=== PATIENT | female | born 1990 | race Caucasian/White ===

== ENCOUNTER 2017-05-03 10:42 | Day surgery (SDC) | payer OTHER ==
[~2017-05-03] VITALS: Ht 165.1 cm; Wt 78.6 kg
[~2017-05-03 10:42] MED LIST: ALPR.5T PO; ALPR0.5T3 PO; CETI10TA20 PO; CETIRIZINE; CRAN450T9 PO; ESCITALOPRAM; FAMO20TA5 PO; L-NO1TBD PO; LEVO1TBD3 PO; MELA1TAB16 PO; MULT-963 PO; NYST1000 PO; PANT40TA3 PO; PHEN37.53 PO; PNT40TEC PO; PROP40TA5 PO; TRM50T PO; Xanax
[2017-05-03 10:47] VITALS: BP 133/109
[2017-05-03] MEDS ORDERED: METOCLOPRAMIDE INJ 10 MG/2 ML (REGLAN) IV NR (11:01)
[2017-05-03] MEDS ORDERED: SUCRALFATE 1 GM (CARAFATE) TAB PO NR (11:05)
[2017-05-03] MEDS ORDERED: NS IV 1000 ML 1,000 ML IV SCH ×2 (11:15→12:15)
[2017-05-03] MEDS ORDERED: GABA-488 PO (12:36)
[2017-05-03] MEDS ORDERED: TRAM50TA2 PO (12:36)
[2017-05-03] MEDS ORDERED: ONDN4T PO (12:36)
[2017-05-03] MEDS ORDERED: SENN-109 PO (12:40)
[2017-05-03] MEDS ORDERED: BISA10SU6 RC (12:40)
[2017-05-03] MEDS ORDERED: DOCU-143 PO (12:40)
[2017-05-03] MEDS ORDERED: ACET325T38 PO (12:40)
[2017-05-03] MEDS: MAGNESIUM 1 GM/D5W 100 ML IVPB IV SCH ×2 (12:42→13:41)
[2017-05-03] MEDS ORDERED: CETI10TA20 PO (12:43)
[2017-05-03] MEDS ORDERED: DIPH25TA65 PO (12:43)
[2017-05-03] MEDS ORDERED: OXYC10TA7 PO (12:43)
[2017-05-03] MEDS ORDERED: CYCL10TA9 PO (12:43)
[2017-05-03] MEDS ORDERED: ENOX100D9 SQ (12:45)
[2017-05-03] MEDS ORDERED: CRAN1TAB5 PO (12:45)
[2017-05-03] MEDS ORDERED: SALI45SP MM (12:45)
[2017-05-03] MEDS ORDERED: PROMETHAZINE INJ 25 MG/ML (PHENERGAN) AMP IV NR (17:00)
[2017-05-03 17:20] VITALS: BP_SYST 128; BP_SYST 133; BP_DIAS 109; BP_DIAS 93
== END 2017-05-03 17:20 | disposition home or self-care (01) ==
LOC: SDC 10:42
PROVIDERS: ATTEND Family Medicine
DX: E86.0 Dehydration (principal); R11.2 Nausea with vomiting, unspecified
CPT/HCPCS: 36415; 83735

== ENCOUNTER → 2017-05-04 | Outpatient (CLI) | payer OTHER ==
[~2017-05-04] MED LIST changes: +ACET325T38 PO; +BISA10SU6 RC; +CRAN1TAB5 PO; +CYCL10TA9 PO; +DIPH25TA65 PO; +DOCU-143 PO; +ENOX100D9 SQ; +GABA-488 PO; +ONDN4T PO; +OXYC10TA7 PO; +SALI45SP MM; +SENN-109 PO; +TRAM50TA2 PO
--- NOTE | 2017-05-04 17:02 | Diagnostic Imaging Report ---
INDICATION: Right upper quadrant abdominal pain. History of portal vein thrombus. TECHNIQUE: Multiple grayscale sonographic images were obtained of the right upper quadrant of the abdomen. CORRELATION STUDY: CT 04/08/2017. FINDINGS: LIVER: There is uniform echotexture within the visualized portions of the liver. Previous CT imaging demonstrated thrombus in the portal vein. This could not be well appreciated on this examination GALLBLADDER: Gallbladder is somewhat contracted may be owing to relatively recent nonfasting state. There is overall abnormal gallbladder wall thickening at 3-4 mm. A 6 mm echogenic focus, non-mobile and non-shadowing is present suspect for potential polyp. COMMON BILE DUCT: Not visualized, largely obscured by overlying bowel gas. PANCREAS: Also obscured by overlying bowel gas. RIGHT KIDNEY: Measures 11.5 cm. No hydronephrosis. OTHER: None. IMPRESSION: 1. The recently demonstrated portal venous thrombosis cannot be well appreciated on this examination. This may be on a technical basis. If further assessment is desired, repeat contrast-enhanced CT imaging recommended. 2. Gallbladder is significantly contracted with gallbladder wall thickening, probable gallbladder polyp. Possibility that this represents an underlying pathology is not excluded. Either short-term follow-up repeat imaging or perhaps consideration for HIDA scan recommended. 3. Multiple midline abdominal structures including pancreas and common bile duct are unable to be identified on this study, obscured by bowel gas. Dictated by: Dictated on workstation # [id number]
== END ==
LOC: RAD 16:21
PROVIDERS: ATTEND Nurse Practitioner Family
DX: K82.8 Other specified diseases of gallbladder (principal); R11.10 Vomiting, unspecified; Z86.718 Personal history of other venous thrombosis and embolism
CPT/HCPCS: 76705

== ENCOUNTER → 2017-05-04 | Outpatient (CLI) | payer OTHER | LOC: PREOP 15:42 | PROVIDERS: ATTEND Surgery | DX: Z01.818 Encounter for other preprocedural examination (principal); R11.2 Nausea with vomiting, unspecified ==

== ENCOUNTER 2017-05-05 09:06 | Day surgery (SDC) | payer OTHER ==
[~2017-05-05] VITALS: Ht 165.1 cm; Wt 78.6 kg
[2017-05-05 09:28] VITALS: BP 137/104
[2017-05-05] MEDS ORDERED: fentaNYL INJECTION 250 MCG/5 ML AMP ONE (09:40)
[2017-05-05] MEDS ORDERED: MIDAZOLAM 2 MG/2 ML (VERSED) VIAL ONE (09:40)
[2017-05-05] MEDS ORDERED: LACTATED RINGERS 1,000 ML IV PRN (09:40)
[2017-05-05] MEDS ORDERED: FAMOTIDINE 20MG/2ML IV (PEPCID) IV ONE (09:45)
--- NOTE | 2017-05-05 09:51 | Progress Note-Pre Operative ---
Pre-Operative Progress Note H&P Reviewed The H&P was reviewed, patient examined and no changes noted. Date Seen by Provider: May 05, 2017 Time Seen by Provider: 09:45 Date H&P Reviewed: May 05, 2017 Time H&P Reviewed: 09:45 Pre-Operative Diagnosis: symptomatic chronic cholecystitis, PUD, nausea/ vomiting PABLITO MARION MD May 05, 2017 09:51
[2017-05-05] MEDS ORDERED: morphine INJ 10 MG/ML 1ML (SYR OR VIAL) IVP PRN (10:00)
[2017-05-05] MEDS ORDERED: HYDROcodone/APAP 5 MG/325 MG (LORTAB) TAB PO ONE (10:00)
[2017-05-05] MEDS ORDERED: ACETAMINOPHEN 325 MG TABLET/CAPLET (TYLENOL) PO PRN (10:00)
[2017-05-05] MEDS ORDERED: ONDANSETRON 4 MG/2 ML (SDV) Z0FRAN IVP PRN ×2 (10:00→12:30)
[2017-05-05] MEDS ORDERED: NS (IVPB) 50 ML ONE (10:09)
[2017-05-05] MEDS ORDERED: ceFAZolin 1,000 MG (ANCEF) VIAL ONE (10:09)
[2017-05-05] MEDS ORDERED: ESMOLOL 100 MG/10 ML (BREVIBLOC) VIAL ONE (10:48)
[2017-05-05] MEDS ORDERED: proPOfol 200 MG/20 ML (DIPRIVAN) VIAL IV ONE (11:02)
[2017-05-05] MEDS ORDERED: SEVOFLURANE (ULTANE) 15 ML INHAL SOLN ONE ×2 (11:02→12:03)
[2017-05-05] MEDS ORDERED: NEOSTIGMINE (BLOXIVERZ ) 1 MG/1ML 10 ML VIAL ONE (11:02)
[2017-05-05] MEDS ORDERED: GLYCOPYRROLATE 0.2 MG/ML (ROBINUL) 2 ML VIAL ONE (11:02)
[2017-05-05] MEDS ORDERED: DEXAMETHASONE 10 MG/ML (DECADRON) 1 ML VIAL ONE (11:02)
[2017-05-05] MEDS ORDERED: ROCURONIUM 50 MG/5 ML (ZEMURON) VIAL IV ONE (11:02)
[2017-05-05] MEDS ORDERED: ONDANSETRON 4 MG/2 ML (SDV) Z0FRAN ONE (11:02)
[2017-05-05] MEDS ORDERED: LIDOCAINE PF 2% 5 ML (XYLOCAINE) VIAL ONE (11:02)
--- NOTE | 2017-05-05 12:01 | Progress Note-Post Operative ---
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 Procedure & Operative Findings Date of Procedure 05/05/17 Procedure Performed/Findings laparoscopic cholecystectomy, EGD with bx. Anesthesia Type GET Estimated Blood Loss Estimated blood loss (mL): minimal Specimens/Packing Specimens Removed gallbladder PABLITO MARION MD May 05, 2017 12:01 pm
--- NOTE | 2017-05-05 12:07 | Discharge Inst-Surgical ---
D/C Lap Instructions-SANAM New, Converted, or Re-Newed RX: RX on Chart Follow Up Appt in 2 weeks Activity as tolerated No driving for 24 hours No driving while on pain medications Incentive Spirometry use every 2 hours while awake Regular Diet Symptoms to Report: Fever over 101 degree F, Nausea/Vomiting Infection Signs and Symptoms to report: Increased redness, Foul odor of wound, Increased drainage Bathing instructions: May shower Operative Area Clean/Dry; Keep incision clean/dry If any problems/questions: Contact your physician or go to Emergency Room PABLITO MARION MD May 05, 2017 12:07 pm
[2017-05-05] MEDS: morphine INJ 10 MG/ML 1ML (SYR OR VIAL) IVP PRN ×2 (12:24→12:38)
[2017-05-05] MEDS ORDERED: HYDROmorphone (DILAUDID) 2 MG/ML VIAL IVP PRN (12:30)
[2017-05-05 13:35] VITALS: BP 119/75
[2017-05-05] MEDS ORDERED: oxyCODONE/APAP 10/325MG (PERCOCET 10) TABLET PO ONE (13:45)
[2017-05-05 13:50] VITALS: BP 127/83
[2017-05-05] MEDS ORDERED: LACTATED RINGERS 1,000 ML IV SCH (14:15)
--- NOTE | 2017-05-05 14:58 | OPERATIVE REPORT ---
DATE OF SERVICE: 05/05/2017 ATTENDING PHYSICIAN: Dr. Sarah Snider. PREOPERATIVE DIAGNOSIS: Chronic acalculous cholecystitis, persistent nausea and vomiting. POSTOPERATIVE DIAGNOSES: Chronic calculus cholecystitis. Reflux esophagitis class B, small hiatal hernia 1 cm in size, mild gastritis with retained food substance within the stomach potentially consistent with gastroparesis. Pylorus and duodenum appeared normal with no distal obstructions. PROCEDURES: Laparoscopic cholecystectomy, EGD with biopsy. SURGEON: Dr. Pablito Marion. ANESTHESIA: General endotracheal. ESTIMATED BLOOD LOSS: Minimal. FINDINGS: Chronic gallbladder wall inflammation as well as a small gallstone. It was visualized at the stomach, omentum and liver appeared normal. EGD reflux esophagitis class B, small hiatal hernia approximately 1 cm in size, mild gastritis which was diffuse. There was retained food substance within the stomach after being n.p.o. for approximately 24 hours, which may be consistent with gastroparesis. Pylorus and duodenum appeared normal with no distal obstructions. DISPOSITION: The patient tolerated the procedure well. INDICATIONS: The patient is a 26-year-old female who experienced abdominal pain, abdominal distention, nausea and vomiting. 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 She was slow to progress and was transferred to the [facility] with continued medical therapy. She reports that she did slowly improve and after she was discharged home, she did well for approximately 1 week. However, had recurrence of nausea and vomiting as well as some mild discomfort in the right upper abdominal quadrant and epigastric region as well as radiation towards the back. She reports that she is having normal bowel movements. She does report a history of gastroesophageal reflux disease and peptic ulcer disease in the past. She states that the nausea and vomiting persisted and worsened over time, where she was not able to take in much of any solids or liquids. An ultrasound was also performed, which did show contracted gallbladder with gallbladder wall thickening. The patient was brought to the operating room, laid supine on the table. After adequate IV pain and sedative medications and general endotracheal intubation, the abdomen was prepped and draped in standard surgical fashion. A 0.5% Marcaine with epinephrine was then used to anesthetize the overlying skin in the left upper abdominal quadrant and a small transverse skin incision made using a 15 blade. An 0 silk suture was applied to the medial aspect of the incision for retraction and a Veress needle inserted with a low opening pressure of 0 mmHg and the abdomen was then insufflated to 15 mmHg pressure. The Veress needle removed and a 5 mm Xcel trocar placed followed by a 5 mm 45 degree angle laparoscope visualizing the peritoneal cavity. A 4-quadrant abdominal exploration was performed. It was visualized that the liver, stomach, omentum, small bowel appeared normal. There was chronic gallbladder wall inflammation which was mild. Under direct visualization, we then proceeded to place a supraumbilical 10 mm port after the skin and peritoneum were anesthetized using 0.5% Marcaine with epinephrine and a transverse skin incision made using a 15 blade. In a similar manner two right upper abdominal quadrant 5 mm ports were placed. The patient was then placed in reverse Trendelenburg position as well as plane right side up, left side down. The gallbladder was then retracted anteriorly and superiorly as well as the neck laterally. The gastroduodenal ligament was then opened using electrocautery and the hook instrument as well as blunt dissection. The entire critical view of safety was identified including the triangle of Calot as well as the cystic duct and artery going into the gallbladder as well as the cystic plate behind the proximal gallbladder. A timeout was then taken and the cystic duct and artery were then clipped proximally, distally and cut with EndoShears. The gallbladder was then dissected off the liver bed using electrocautery on the hook with no leak with visualization and no leaking ducts of Luschka as well as a good hemostasis. The gallbladder was removed through the 10 mm port site using an EndoCatch bag. The 10 mm port site fascia and peritoneum were then closed under direct visualization using a Chevy-Jeffery device and 0 Vicryl suture. The abdomen was desufflated and the remaining ports removed. All skin incisions were closed using 4-0 Monocryl running subcuticular sutures. Wounds were then cleaned and covered with Dermabond. On the back table the gallbladder was examined and a small gallstone was identified. The patient tolerated the procedure well. We will start IV and oral pain medication as well as a clear liquid diet. Once she is tolerating clears and has good pain control with oral pain medications and ambulating well, we will discharge her home. Under the same general anesthesia, we then proceeded with EGD portion of the procedure. The endoscope was placed in the mouth, visualizing the pharynx in the hypopharyngeal region. Vocal cords, epiglottis and vallecula identified and appeared to be normal. The endoscope was then gently intubated in the esophageal opening, esophagus insufflated. Endoscope was then advanced through the first, second and third portions of the esophagus. At the level of the GE junction, a reflux esophagitis class B identified. There were no ulcers or strictures identified in this region. A biopsy was taken with forceps to visualization of good hemostasis. The endoscope was then easily advanced in the stomach and then endoscope retroflexed, visualizing a small hiatal hernia approximately 1 cm in size. There was mild severity gastritis throughout the stomach. There were no formal ulcers, polyps or any neoplasms identified. What was identified as unusual was a retained food substance within the stomach even after being n.p.o. for 24 hours. This may indicate a gastroparesis. A biopsy was taken of the stomach antrum with forceps with visualization of good hemostasis. The endoscope was then advanced to the pylorus in the first and second portions of the duodenum, which appeared normal with no distal obstructions. The endoscope was then slowly withdrawn taking a second look and suctioning residual air with no additional findings. The patient tolerated the procedure well. We will have her continue with her Protonix and anti nausea medications as well as Reglan. We will also proceed with a trial of erythromycin 250 mg q.8h. If she has continued symptoms, we may then proceed with a nuclear medicine gastric emptying study for proper diagnosis of gastroparesis. Job ID: [id number] DocumentID: [id number] Dictated Date: 05/05/2017 12:24:53 Seat Joiner Chainstitch Date: 05/05/2017 14:58:21 Dictated By: PABLITO MARION MD
== END 2017-05-05 14:36 | disposition home or self-care (01) ==
LOC: ENDO 09:06 → SDC 14:36
PROVIDERS: ATTEND Surgery
DX: K80.10 Calculus of gallbladder with chronic cholecystitis without obstruction (principal); K21.0 Gastro-esophageal reflux disease with esophagitis; K44.9 Diaphragmatic hernia without obstruction or gangrene; Z79.899 Other long term (current) drug therapy
CPT/HCPCS: 84703; 87081; 94664

== ENCOUNTER 2017-05-07 19:37 | Inpatient (IN) | payer OTHER ==
[~2017-05-07] VITALS: Ht 165.1 cm; Wt 81.2 kg
[2017-05-07] MEDS ORDERED: LACTATED RINGERS 1,000 ML IV ONE ×2 (19:50→21:47)
--- NOTE | 2017-05-07 19:59 | ED GI ---
General Chief Complaint: Abdominal/GI Problems Stated Complaint: N/V POSS INFECT Source of Information: Patient History of Present Illness Time Seen By Provider: 19:43 Initial Comments PT ARRIVES VIA POV--SENT HERE BY PT HAS HAD ONGOING PROBLEMS WITH NAUSEA AND VOMITING FOR THE LAST 11 DAYS--FELT TO BE DUE TO GALLBLADDER AND PT HAD LAP CHOLECYSTECTOMY BY DR. MARION 2 DAYS AGO 05/05/17 NO IMPROVEMENT IN NAUSEA/VOMITING--STATES SHE CAN'T KEEP ANYTHING DOWN--VOMITED X 4 TODAY HAS NOT REALLY HAD ANY FOOD SINCE SURGERY HAS BEEN DRINKING SMALL AMOUNTS OF WATER, LIQUIDS, POPSICLES OCCASIONALLY PT HAS BEEN TAKING REGLAN QID--3 DOSES TODAY, PROTONIX--TOOK 1 TODAY, PHENERGAN- -2 DOSES TODAY, HAS ZOFRAN BUT HAS NOT TAKEN ANY TODAY. PT HAS ALSO BEEN PRESCRIBED CARAFATE, BUT DID NOT TAKE TODAY PT ALSO TAKING PAIN MEDICATION --OXYCODONE, AND ANTIBIOTIC--ERYTHROMYCIN CONTINUES TO HAVE GENERALIZED ABDOMINAL PAIN--MOSTLY IN RUQ HAS NOT HAD A BM SINCE THE NIGHT BEFORE SURGERY , ON 05/04/17 NO FEVER HAS HAD DECREASED URINE OUTPUT PT HAS PAIN, REDNESS AND A BLISTER TO UMBILICAL INCISION SITE PRIOR TO SURGERY, PT HAD MESENTERIC VEIN THROMBUS AND WAS SENT TO --PT IS ON LOVENOX 100 MG BID SQ. 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 SMITH Allergies and Home Medications Allergies Coded Allergies: No Known Drug Allergies (Unverified , 09/15/12) Home Medications Acetaminophen 325 Mg Tablet, 650 MG PO Q6H PRN for PAIN-MILD, (Reported) TAKES 2 (325MG) TABLETS Bisacodyl 10 Mg Supp.rect, 10 MG RC BID PRN for CONSTIPATION-4TH LINE, (Reported ) Cetirizine HCl 10 Mg Tablet, 10 MG PO DAILY, (Reported) Cranberry Conc/C/Bacill Coag 1 Each Tablet, 1,500 MG PO DAILY, (Reported) Cyclobenzaprine HCl 10 Mg Tablet, 10 MG PO TID PRN for MUSCLE SPASMS, (Reported) Diphenhydramine HCl 25 Mg Tablet, 25 MG PO DAILY, (Reported) Docusate Sodium 100 Mg Capsule, 100 MG PO DAILY, (Reported) Enoxaparin Sodium 100 Mg/1 Ml Syringe, 100 MG SQ BID, (Reported) Gabapentin 300 Mg Capsule, 300 MG PO Q8H PRN for NERVE PAIN, (Reported) Ondansetron HCl 4 Mg Tab, 4 MG PO Q8H PRN for NAUSEA/VOMITING-1ST LINE, ( Reported) Oxycodone HCl 10 Mg Tablet, 10 MG PO Q4H, (Reported) Pantoprazole Sodium 40 Mg Tablet.dr, 40 MG PO BID, (Reported) Saliva Stimulant Agents Comb.3 1 Each Sew[place], 1 SPRAY MM QID PRN for DRY MOUTH, ( Reported) Sennosides/Docusate Sodium 1 Each Tablet, 1 TAB PO DAILY, (Reported) Tramadol HCl 50 Mg Tablet, 50-100 MG PO Q6H PRN for PAIN-MODERATE, (Reported) Review of Systems Constitutional: no symptoms reported EENTM: No Symptoms Reported Respiratory: No Symptoms Reported, Denies Shortness of Air Cardiovascular: Denies Chest Pain, Denies Lightheadedness, Other (RAPID HEART BEAT) Gastrointestinal: See HPI, Abdominal Pain, Denies Diarrhea, Nausea, Poor Appetite, Poor Fluid Intake, Vomiting Genitourinary: See HPI Musculoskeletal: no symptoms reported Skin: see HPI Psychiatric/Neurological: No Symptoms Reported Endocrine: No Symptoms Reported Hematologic/Lymphatic: See HPI, Blood Clots Past Rpcoqzb-Vdvemg-Sbifxt Hx Patient Social History 2nd Hand Smoke Exposure: No Recent Foreign Travel: No Contact w/Someone Who Travel: No Recent Hopitalizations: Yes (04/03/17 MESSENTERIC VEIN THROMBOSIS, TRANSFERRED TO [facility] 04/09 FOR 6 DAYS) Immunizations Up To Date Tetanus Booster (TDap): Less than 5yrs PED Vaccines UTD: Yes Date of Influenza Vaccine: Mar 06, 2017 Seasonal Allergies Seasonal Allergies: Yes Surgeries History of Surgeries: Yes (LABIAL BIOPSY) Surgeries: Gallbladder Respiratory History of Respiratory Disorde: No Currently Using CPAP: No Currently Using BIPAP: No Cardiovascular History of Cardiac Disorders: No Neurological History of Neurological Disord: No Reproductive System Hx Reproductive Disorders: No Genitourinary History of Genitourinary Disor: No Gastrointestinal History of Gastrointestinal Di: Yes Gastrointestinal Disorders: Gall Bladder Disease Musculoskeletal History of Musculoskeletal Dis: No Endocrine History of Endocrine Disorders: No HEENT History of HEENT Disorders: No Loss of Vision: Denies Hearing Impairment: Denies Cancer History of Cancer: No Psychosocial History of Psychiatric Problem: Yes Behavioral Health Disorders: Anxiety Integumentary History of Skin or Integumenta: No Blood Transfusions History of Blood Disorders: Yes (MESENTERIC VEIN CLOT 03/2017) Family Medical History Significant Family History: Cancer, Vascular Disease Family Medial History: Cardiovascular disease G8 BROTHER (RUNS ON MOTHER'S SIDE OF THE FAMILY) Hypertension G8 BROTHER (RUNS ON MOTHER'S SIDE OF THE FAMILY) Neoplasm 19 MOTHER (BREAST CANCER) G8 BROTHER (BREAST CANCER) Physical Exam Vital Signs VS - Last 72 Hours, by Label 05/07/17 19:44 Temp 96.8 Pulse 140 Resp 20 B/P (MAP) 138/108 (118) Pulse Ox 98 O2 Delivery Room Air Capillary Refill : General Appearance: WD/WN, no apparent distress, other (CHANGES POSITIONS VERY SLOWLY DUE TO PAIN ) HEENT: other (DRY ORAL MUCOSA ) Neck: normal inspection Respiratory: normal breath sounds, no respiratory distress, no accessory muscle use Cardiovascular: no edema, no murmur, tachycardia (150'S ) Gastrointestinal: abnormal bowel sounds (DECREASED), guarding, No rebound, tenderness (DIFFUSE TENDERNESS, BUT VERY TENDERIN RUQ. ), other (UMBILICAL INCISION SITE WITH MODERATE SURROUNDING ERYTHEMA, INDURATION AND TENDERNESS WITH A 1 CM BLISTER TO SUPERIOR ASPECT. 3 OTHER SURGICAL WOUNDS ALL APPEAR NORMAL. NO BRUISING NOTED TO ABDOMEN) Extremities: normal inspection, no pedal edema, no calf tenderness, normal capillary refill Back: normal inspection, no CVA tenderness Neurologic/Psychiatric: marketing information analyst II-XII nml as tested, no motor/sensory deficits, alert, oriented x 3 Skin: warm/dry, pallor, No rash Focused Exam Evaluation Lactate Level Laboratory Tests 05/07/17 20:05: Lactic Acid Level 1.20 Lactic Acid Level Laboratory Tests Test 05/07/17 20:05 Lactic Acid Level 1.20 MMOL/L (0.50-2.00) Progress/Results/Core Measures Results/Orders Lab Results Laboratory Tests Test 05/07/17 20:05 05/07/17 21:00 Range/Units White Blood Count 8.2 4.3-11.0 10^3/uL Red Blood Count 4.36 4.35-5.85 10^6/uL Hemoglobin 12.4 11.5-16.0 G/DL Hematocrit 38 35-52 % Mean Corpuscular Volume 87 80-99 FL Mean Corpuscular Hemoglobin 28 25-34 PG Mean Corpuscular Hemoglobin Concent 33 32-36 G/DL Red Cell Distribution Width 13.5 10.0-14.5 % Platelet Count 499 H 130-400 10^3/uL Mean Platelet Volume 10.3 7.4-10.4 FL Neutrophils (%) (Auto) 50 42-75 % Lymphocytes (%) (Auto) 33 12-44 % Monocytes (%) (Auto) 16 H 0-12 % Eosinophils (%) (Auto) 0 0-10 % Basophils (%) (Auto) 0 0-10 % Neutrophils # (Auto) 4.1 1.8-7.8 X 10^3 Lymphocytes # (Auto) 2.7 1.0-4.0 X 10^3 Monocytes # (Auto) 1.3 H 0.0-1.0 X 10^3 Eosinophils # (Auto) 0.0 0.0-0.3 10^3/uL Basophils # (Auto) 0.0 0.0-0.1 10^3/uL Prothrombin Time 13.5 12.2-14.7 SEC INR Comment 1.0 0.8-1.4 Activated Partial Thromboplast Time 37 H 24-35 SEC Sodium Level 141 135-145 MMOL/L Potassium Level 3.3 L 3.6-5.0 MMOL/L Chloride Level 101 98-107 MMOL/L Carbon Dioxide Level 22 21-32 MMOL/L Anion Gap 18 H 5-14 MMOL/L Blood Urea Nitrogen 9 7-18 MG/DL Creatinine 0.98 0.60-1.30 MG/DL Estimat Glomerular Filtration Rate > 60 BUN/Creatinine Ratio 9 Glucose Level 110 H 70-105 MG/DL Lactic Acid Level 1.20 0.50-2.00 MMOL/L Calcium Level 9.8 8.5-10.1 MG/DL Magnesium Level 1.3 L 1.8-2.4 MG/DL Total Bilirubin 0.5 0.1-1.0 MG/DL Aspartate Amino Transf (AST/SGOT) 52 H 5-34 U/L Alanine Aminotransferase (ALT/SGPT) 71 H 0-55 U/L Alkaline Phosphatase 94 40-136 U/L Total Protein 7.8 6.4-8.2 GM/DL Albumin 4.0 3.2-4.5 GM/DL Amylase Level 51 25-125 U/L Lipase 88 H 8-78 U/L Serum Test, Qualitative NEGATIVE NEGATIVE Urine Color AYSHA H Urine Clarity SLIGHTLY CLOUDY Urine pH 6 5-9 Urine Specific Brigantine 1.025 H 1.016-1.022 Urine Protein 2+ H NEGATIVE Urine Glucose (UA) NEGATIVE NEGATIVE Urine Ketones 4+ H NEGATIVE Urine Nitrite NEGATIVE NEGATIVE Urine Bilirubin 2+ H NEGATIVE Urine Urobilinogen 4 H NORMAL MG/DL Urine Leukocyte Esterase 2+ H NEGATIVE Urine RBC (Auto) 1+ H NEGATIVE Urine RBC 0-2 /HPF Urine WBC 2-5 /HPF Urine Squamous Epithelial Cells 5-10 /HPF Urine Renal Epithelial Cells NONE /HPF Urine Crystals PRESENT H /LPF Urine Amorphous Sediment FEW LUIS A URATES H /LPF Urine Bacteria MODERATE H /HPF Urine Casts PRESENT /LPF Urine Hyaline Casts 25-50 H /LPF Urine Granular Casts RARE /LPF Urine Mucus LARGE H /LPF Urine Culture Indicated NO My Orders Orders - KARI CAREY DO Saline Lock/Iv-Start (05/07/17 19:50) Ekg Tracing (05/07/17 19:50) Monitor-Rhythm Ecg Trace Only (05/07/17 19:50) Amylase (05/07/17 19:50) Cbc With Automated Diff (05/07/17 19:50) Comprehensive Metabolic Panel (05/07/17 19:50) Hcg,Qualitative Serum (05/07/17 19:50) Lactic Acid Analyzer (05/07/17 19:50) Magnesium (05/07/17 19:50) Protime With Inr (05/07/17 19:50) Partial Thromboplastin Time (05/07/17 19:50) Ua Culture If Indicated (05/07/17 19:50) Blood Culture (05/07/17 19:50) Saline Lock/Iv-Start (05/07/17 19:50) Ondansetron Injection (Zofran Injectio (05/07/17 20:00) Scopolamine Patch (Transderm-Scop Patch) (05/07/17 20:00) Saline Lock/Iv-Start (05/07/17 19:50) Lactated Ringers (Lr 1000 Ml Iv Solution (05/07/17 19:50) Lipase (05/07/17 20:27) Hydromorphone Injection (Dilaudid Inject (05/07/17 21:22) Ct Angio Chst/Abd/Pelv W (05/07/17 21:22) Urine Culture (05/07/17 21:37) Magnesium 1 Gm/100 Ml Ivpb (Magnesium Hawk (05/07/17 22:00) Saline Lock/Iv-Start (05/07/17 21:47) Lactated Ringers (Lr 1000 Ml Iv Solution (05/07/17 21:47) Medications Given in ED Current Medications Medications Dose Ordered Sig/Maribel Route Start Time Stop Time Status Last Admin Dose Admin Lactated Ringer's 1,000 ml @ 0 mls/hr Q0M ONCE IV 05/07/17 19:50 05/07/17 19:54 DC 05/07/17 20:16 1,000 MLS/HR Lactated Ringer's 1,000 ml @ 0 mls/hr Q0M ONCE IV 05/07/17 21:47 05/07/17 22:28 DC 05/07/17 22:17 0 MLS/HR Ondansetron HCl 8 mg ONCE ONCE IVP 05/07/17 20:00 05/07/17 20:01 DC 05/07/17 20:16 8 MG Scopolamine 1.5 mg ONCE ONCE TD 05/07/17 20:00 05/07/17 20:01 DC 05/07/17 20:16 1.5 MG Vital Signs/I&O Vital Sign - Last 12Hours 05/07/17 19:44 Temp 96.8 Pulse 140 Resp 20 B/P (MAP) 138/108 (118) Pulse Ox 98 O2 Delivery Room Air Intake and Output 05/08/17 00:00 Intake Total 1000 ml Balance 1000 ml Progress Note : Progress Note NAUSEA RESOLVED WITH ZOFRAN PT ONLY WANTS DILAUDID FOR PAIN--STATES "NOTHING ELSE EVERY WORKS"--PAIN EASED WITH MEDICATION HEART RATE DOWN TO 120'S AFTER FLUIDS ECG Initial ECG Impression Time: 19:49 Initial ECG Rate: 136 Initial ECG Rhythm: S.Tach Initial ECG Comparisson: No Previous ECG Available Diagnostic Imaging Comments CT ANGIOGRAM OF CHEST AND ABDOMEN/PELVIS--HIGH GRADE PARTIAL SBO WITH PERSISTENT THICK -WALLED JEJUNUM, SMALL FREE FLUID IN PELVIS, NORMAL ABDOMINAL VASCULATURE--PER [facility] VIA FAX @ [phone] Reviewed: Reviewed by Me Departure Communication (Admissions) Progress Notes 2300--SPOKE WITH DR. MARION, ACCEPTS PT FOR ADMIT/OBSERVATION, ADVISES NO NG TUBE AT THIS TIME, AND WILL ORDER SMALL BOWEL FOLLOW THROUGH FOR TOMORROW Impression Impression: Primary Impression: Small bowel obstruction Additional Impressions: S/P laparoscopic cholecystectomy RECENT MESENTERIC VENOUS THROMBOSIS Hypomagnesemia Sinus tachycardia Mild dehydration UTI (urinary tract infection) WOUND INFECTION OF UMBILICAL INCISION MILD HYPOKALEMIA MILDLY ELEVATED LIVER ENZYMES AND LIPASE Disposition: ADMITTED INPATIENT Condition: Improved Admissions Decision to Admit Reason: Admit from ER (General) Decision to Admit/Date: May 07, 2017 Time/Decision to Admit Time: 23:00 Departure-Patient Inst. Referrals: JONATHAN SMITH MD (PCP/Family) Primary Care Physician KARI CAREY DO May 07, 2017 19:59
[2017-05-07] MEDS ORDERED: SCOPOLAMINE 1.5 MG (TRANSDERM-SCOP) PATCH TD ONE (20:00)
[2017-05-07] MEDS ORDERED: ONDANSETRON 4 MG/2 ML (SDV) Z0FRAN IVP ONE (20:00)
[2017-05-07 20:29] LABS: BASOPHILS % (AUTO) 0 % (0-10); EOSINOPHILS % (AUTO) 0 % (0-10); LYMPHOCYTES # (AUTO) 2.7 X 10^3 (1.0-4.0); LYMPHOCYTES % (AUTO) 33 % (12-44); MEAN CORPUSCULAR HEMOGLOBIN 28 PG (25-34); MEAN CORPUSCULAR HGB CONC 33 G/DL (32-36); MEAN CORPUSCULAR VOLUME 87 FL (80-99); MEAN PLATELET VOLUME 10.3 FL (7.4-10.4); MONOCYTES # (AUTO) 1.3 X 10^3 (0.0-1.0); MONOCYTES % (AUTO) 16 % (0-12); NEUTROPHILS # (AUTO) 4.1 X 10^3 (1.8-7.8); NEUTROPHILS % (AUTO) 50 % (42-75); PLATELET COUNT 499 10^3/uL (130-400); RED BLOOD COUNT 4.36 10^6/uL (4.35-5.85); RED CELL DISTRIBUTION WIDTH 13.5 % (10.0-14.5); WHITE BLOOD COUNT 8.2 10^3/uL (4.3-11.0)
[2017-05-07 20:46] LABS: PROTHROMBIN TIME PATIENT 13.5 SEC (12.2-14.7)
[2017-05-07 20:55] LABS: ALANINE AMINOTRANSFERASE 71 U/L (0-55); AMYLASE 51 U/L (25-125); ANION GAP 18 MMOL/L (5-14); ASPARTATE AMINO TRANSFERASE 52 U/L (5-34); BILIRUBIN,TOTAL 0.5 MG/DL (0.1-1.0); BLOOD UREA NITROGEN 9 MG/DL (7-18); BUN/CREATININE RATIO 9; CALCIUM 9.8 MG/DL (8.5-10.1); CARBON DIOXIDE 22 MMOL/L (21-32); CHLORIDE 101 MMOL/L (98-107); CREATININE SERUM 0.98 MG/DL (0.60-1.30); GFR ESTIMATED > 60; GLUCOSE 110 MG/DL (70-105); MAGNESIUM 1.3 MG/DL (1.8-2.4); POTASSIUM 3.3 MMOL/L (3.6-5.0); SODIUM 141 MMOL/L (135-145); TOTAL PROTEIN 7.8 GM/DL (6.4-8.2)
[2017-05-07 21:10] LABS: KETONES,URINE 4+ (NEGATIVE); LEUKOCYTE ESTERASE ,URINE 2+ (NEGATIVE); NITRITE,URINE NEGATIVE (NEGATIVE); PH,URINE 6 (5-9); PROTEIN,URINE 2+ (NEGATIVE); UROBILINOGEN,URINE 4 MG/DL (NORMAL)
[2017-05-07] MEDS ORDERED: HYDROmorphone (DILAUDID) 2 MG/ML VIAL IVP STA (21:22)
[2017-05-07 21:34] LABS: BILIRUBIN,URINE 2+ (NEGATIVE); GRANULAR CASTS,URINE RARE /LPF; HYALINE CASTS, URINE 25-50 /LPF
[2017-05-07] MEDS: MAGNESIUM 1 GM/100 ML IVPB 100 ML IV SCH ×2 (22:17→23:20)
[2017-05-07 23:50] VITALS: BP 137/91
[2017-05-08] MEDS: HYDROmorphone (DILAUDID) 2 MG/ML VIAL IV PRN ×5 (00:20→21:57)
[2017-05-08] MEDS: D5 1/2 NS W/KCL 20 MEQ/L 1,000 ML IV SCH ×5 (00:20→20:31)
[2017-05-08 04:17] VITALS: BP 130/68
[2017-05-08 06:00] LABS: BASOPHILS % (AUTO) 1 % (0-10); EOSINOPHILS % (AUTO) 1 % (0-10); LYMPHOCYTES # (AUTO) 2.4 X 10^3 (1.0-4.0); LYMPHOCYTES % (AUTO) 53 % (12-44); MEAN CORPUSCULAR HEMOGLOBIN 28 PG (25-34); MEAN CORPUSCULAR HGB CONC 33 G/DL (32-36); MEAN CORPUSCULAR VOLUME 87 FL (80-99); MEAN PLATELET VOLUME 10.1 FL (7.4-10.4); MONOCYTES # (AUTO) 0.9 X 10^3 (0.0-1.0); MONOCYTES % (AUTO) 21 % (0-12); NEUTROPHILS # (AUTO) 1.1 X 10^3 (1.8-7.8); NEUTROPHILS % (AUTO) 24 % (42-75); PLATELET COUNT 361 10^3/uL (130-400); RED BLOOD COUNT 3.56 10^6/uL (4.35-5.85); RED CELL DISTRIBUTION WIDTH 13.2 % (10.0-14.5); WHITE BLOOD COUNT 4.4 10^3/uL (4.3-11.0)
[2017-05-08 06:22] LABS: ALANINE AMINOTRANSFERASE 50 U/L (0-55); ALBUMIN 2.9 GM/DL (3.2-4.5); AMYLASE 35 U/L (25-125); ANION GAP 10 MMOL/L (5-14); ASPARTATE AMINO TRANSFERASE 32 U/L (5-34); BILIRUBIN,TOTAL 0.3 MG/DL (0.1-1.0); BLOOD UREA NITROGEN 5 MG/DL (7-18); BUN/CREATININE RATIO 7; CARBON DIOXIDE 26 MMOL/L (21-32); CHLORIDE 102 MMOL/L (98-107); CREATININE SERUM 0.68 MG/DL (0.60-1.30); GFR ESTIMATED > 60; GLUCOSE 121 MG/DL (70-105); LIPASE 63 U/L (8-78); MAGNESIUM 1.7 MG/DL (1.8-2.4); POTASSIUM 3.2 MMOL/L (3.6-5.0); SODIUM 138 MMOL/L (135-145); TOTAL PROTEIN 5.5 GM/DL (6.4-8.2)
[2017-05-08 08:00] VITALS: BP 165/94
[2017-05-08] MEDS ORDERED: SUCR1TAB PO (08:05)
[2017-05-08] MEDS ORDERED: LEVO1TBD3 PO (08:05)
[2017-05-08] MEDS ORDERED: METO10TA3 PO (08:05)
[2017-05-08] MEDS ORDERED: PROM12.59 PO (08:05)
[2017-05-08] MEDS ORDERED: ERYT-95 PO (08:05)
[2017-05-08] MEDS ORDERED: DIATRIZOATE MEGLUM/SODIUM 37% 120 ML (GASTROGRAFIN) PO ONE (08:30)
--- NOTE | 2017-05-08 09:11 | Diagnostic Imaging Report ---
PROCEDURE: CT angiography of the chest with contrast and CT abdomen and pelvis with contrast. TECHNIQUE: Multiple contiguous axial images were obtained through the chest, abdomen and pelvis after administration of intravenous contrast. Reconstructed MIP CT angiography acquisitions of the aorta were then performed. INDICATION: Nausea and vomiting and abdominal pain. History of mesenteric vein and portal vein thrombosis. 150 mL of Omnipaque 350 is administered intravenously. FINDINGS: CTA chest: There is good opacification of the pulmonary arteries with no filling defects to suggest pulmonary embolism. The thoracic aorta is normal in caliber. No dissection. There is no pleural or pericardial effusion. The heart size is normal. The lungs demonstrate no significant consolidation. The mediastinum demonstrates no mass or significantly enlarged nodes. No axillary lymphadenopathy is seen. Osseous structures appear grossly unremarkable. CT abdomen and pelvis: When compared to 04/08/2017, there is improvement in the previously seen portal vein thrombus. There is no thrombus seen within the intrahepatic portal vein branches. Nonocclusive partial thrombus within the main portal vein is seen, less prominent compared to 04/08/2017. Venous thrombus burden within the superior mesenteric vein, however, is less than optimally evaluated on this scan and would be better evaluated with dedicated venous phase CT scan. The proximal aspect of the splenic artery is not well seen, possibly related to occlusion or congenital absence. There is dilatation of the proximal small bowel loops and stomach with the transition point within the proximal jejunum in the left upper quadrant demonstrating surrounding fatty stranding and associated mesenteric lymphadenopathy as well. There is fecal material seen in the colon and rectum. The uterus and adnexa appear grossly unremarkable. The spleen, the adrenal glands, and the pancreas appear unremarkable. The gallbladder has been recently removed with cholecystectomy clips seen. This also explains the free air in the abdomen. Abdominal aorta is normal in caliber. No para-aortic significantly enlarged lymph node is seen. The kidneys have symmetric enhancement and contrast excretion. Small amount of free fluid is seen in the pelvis. The osseous structures appear grossly unremarkable. IMPRESSION: CTA chest: No PE or aortic dissection. Unremarkable exam. CT abdomen and pelvis: 1. There is a high-grade partial small bowel obstruction within the proximal jejunum with associated jejunal wall thickening and mesenteric lymphadenopathy. 2. Improvement in the nonocclusive thrombus within the main portal vein. There is suggestion of persistent thrombus within the upper aspect of the superior mesenteric vein. Its exact extent is difficult to evaluate on this scan without a dedicated venous phase. 3. Small amount of free fluid in the pelvis and free air is perhaps related to recent cholecystectomy. This reading agrees with the [facility] report. Dictated by: Dictated on workstation # [id number]
--- NOTE | 2017-05-08 09:25 | Consultation ---
History of Present Illness History of Present Illness Patient Consulted On(matt/time) 05/08/17 09:20 Date Seen by Provider: May 08, 2017 Time Seen by Provider: 07:45 Reason for Visit: ABDOMINAL PAIN History of Present Illness PT IS A 26 Y/O FEMALE WHO IS KNOWN TO ME FROM CLINIC. SHE PRESENTED TO THE EMERGENCY DEPARTMENT WITH PERSISTENT NAUSEA, EMESIS - BILIARY EMESIS. SHE REPORTS THAT SHE CONTINUES TO HAVE ABDOMINAL DISCOMFORT IN HER EPIGASTRIC REGION AND JUST RIGHT OF MIDLINE. SHE STATES THAT SHE HAS NOT HAD MUCH EMESIS SINCE HOSPITALIZATION. Allergies and Home Medications Allergies Coded Allergies: No Known Drug Allergies (Unverified , 09/15/12) Home Medications Acetaminophen 325 Mg Tablet, 650 MG PO Q6H PRN for PAIN-MILD, (Reported) TAKES 2 (325MG) TABLETS Bisacodyl 10 Mg Supp.rect, 10 MG RC BID PRN for CONSTIPATION-4TH LINE, (Reported ) Cetirizine HCl 10 Mg Tablet, 10 MG PO DAILY, (Reported) Cranberry Conc/C/Bacill Coag 1 Each Tablet, 1,500 MG PO DAILY, (Reported) Cyclobenzaprine HCl 10 Mg Tablet, 10 MG PO TID PRN for MUSCLE SPASMS, (Reported) Diphenhydramine HCl 25 Mg Tablet, 25 MG PO DAILY, (Reported) Docusate Sodium 100 Mg Capsule, 100 MG PO DAILY, (Reported) Enoxaparin Sodium 100 Mg/1 Ml Syringe, 100 MG SQ BID, (Reported) Erythromycin Base 250 Mg Tablet, 250 MG PO TID for 5 Days, (Reported) 5 DAY SUPPLY FILLED 05-05-17 Gabapentin 300 Mg Capsule, 300 MG PO Q8H PRN for NERVE PAIN, (Reported) Levonorgestrel-Ethin Estradiol 1 Each Tbdspk.3mo, 1 TAB PO DAILY, (Reported) Metoclopramide HCl 10 Mg Tablet, 10 MG PO TID, (Reported) Ondansetron HCl 4 Mg Tab, 4 MG PO Q8H PRN for NAUSEA/VOMITING-1ST LINE, ( Reported) Oxycodone HCl 10 Mg Tablet, 10 MG PO Q4H, (Reported) Pantoprazole Sodium 40 Mg Tablet.dr, 40 MG PO BID, (Reported) Promethazine HCl 12.5 Mg Tablet, 12.5-25 MG PO Q6H PRN for NAUSEA/VOMITING-2ND LINE, (Reported) Saliva Stimulant Agents Comb.3 1 Each [place], 1 SPRAY MM QID PRN for DRY MOUTH, ( Reported) Sennosides/Docusate Sodium 1 Each Tablet, 1 TAB PO DAILY, (Reported) Sucralfate 1 Gm Tablet, 1 GM PO ACHS, (Reported) Tramadol HCl 50 Mg Tablet, 50-100 MG PO Q6H PRN for PAIN-MODERATE, (Reported) Past Yvtfbyo-Snmhox-Gmnaeb Hx Patient Social History Alcohol Use: Denies Use Recreational Drug Use: No Smoking Status: Never a Smoker 2nd Hand Smoke Exposure: No Recent Foreign Travel: No Contact w/Someone Who Travel: No Recent Infectious Disease Expo: No Recent Hopitalizations: Yes (04/03/17 MESSENTERIC VEIN THROMBOSIS, TRANSFERRED TO [facility] 04/09 FOR 6 DAYS) Physical Abuse: No Sexual Abuse: No Mistreated: No Fear: No Immunizations Up To Date Tetanus Booster (TDap): Less than 5yrs PED Vaccines UTD: Yes Date of Influenza Vaccine: Mar 06, 2017 Seasonal Allergies Seasonal Allergies: Yes Surgeries History of Surgeries: Yes (LABIAL BIOPSY/ lap suki) Surgeries: Gallbladder Respiratory History of Respiratory Disorde: No Currently Using CPAP: No Currently Using BIPAP: No Cardiovascular History of Cardiac Disorders: Yes Cardiac Disorders: Deep Vein Thrombosis Neurological History of Neurological Disord: No Reproductive System : No Last Menstrual Period: May 07, 2017 Hx Reproductive Disorders: No Genitourinary History of Genitourinary Disor: No Gastrointestinal History of Gastrointestinal Di: Yes Gastrointestinal Disorders: Gastroesophageal Reflux, Gall Bladder Disease Musculoskeletal History of Musculoskeletal Dis: No Endocrine History of Endocrine Disorders: No HEENT History of HEENT Disorders: No Loss of Vision: Denies Hearing Impairment: Denies Cancer History of Cancer: No Psychosocial History of Psychiatric Problem: Yes Behavioral Health Disorders: Anxiety Integumentary History of Skin or Integumenta: No Blood Transfusions History of Blood Disorders: Yes (MESENTERIC VEIN CLOT 03/2017) Reviewed Nursing Assessment Reviewed/Agree w Nursing PMH: Yes Family Medical History Significant Family History: Cancer, Hypertension, Vascular Disease Family Medial History: Cardiovascular disease G8 BROTHER (RUNS ON MOTHER'S SIDE OF THE FAMILY) Hypertension G8 BROTHER (RUNS ON MOTHER'S SIDE OF THE FAMILY) Neoplasm 19 MOTHER (BREAST CANCER) G8 BROTHER (BREAST CANCER) Review of Systems-General Constitutional: No chills, No fever, malaise EENTM: No mouth pain, No throat pain Respiratory: No cough, No dyspnea on exertion, No short of breath Cardiovascular: No chest pain, No edema, No palpitations Gastrointestinal: abdominal pain, nausea, vomiting Genitourinary: no symptoms reported, No pain Musculoskeletal: No back pain, No muscle weakness Skin: No change in color, No lesions, No rash Psychiatric/Neurological: Anxiety, Denies Depressed, Denies Headache, Weakness All Other Systems Reviewed Negative Unless Noted: Yes Physical Exam-General Problems Physical Exam Vital Signs Vital Sign - Last 12Hours 05/07/17 19:44 Temp 96.8 Pulse 140 Resp 20 B/P (MAP) 138/108 (118) Pulse Ox 98 O2 Delivery Room Air Capillary Refill : Less Than 3 Seconds General Appearance: WD/WN, no apparent distress Eyes: Bilateral Eye Normal Inspection, Bilateral Eye PERRL, Bilateral Eye EOMI HEENT: PERRL/EOMI, pharynx normal Neck: non-tender, full range of motion, supple, normal inspection Respiratory: chest non-tender, lungs clear, normal breath sounds, no respiratory distress, no accessory muscle use Cardiovascular: regular rate, rhythm, no edema, no gallop, no murmur Gastrointestinal: normal bowel sounds, soft, tenderness (VENTRAL/RIGHT OF MID- LINE AND EPIGASTRIC TTP, BLISTER IN UMBILICUS) Back: normal inspection, no CVA tenderness, no vertebral tenderness Extremities: normal range of motion, non-tender, normal inspection, no pedal edema, no calf tenderness, normal capillary refill 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 MARION - PT TO HAVE SMALL BOWEL FOLLOW- THROUGH TODAY. NAUSEA AND ABDOMINAL PAIN - CONCERN FOR POSSIBLE REACTION FROM LOVENOX - WILL WAIT TO SEE IF HER SMALL BOWEL OBSTRUCTION IMPROVING HELPS TO IMPROVE HER SYMPTOMS OF NAUSEA AND ABDOMINAL PAIN - IF NOT, THEN NEED TO CONSIDER THAT SHE IS PART OF THE 3% THAT HAVE NAUSEA DUE TO LOVENOX. MESENTERIC VEIN THROMBOSIS - CONTINUE WITH LOVENOX. POD #3 CHOLECYSTECTOMY TACHYCARDIA - MONITOR SYMPTOMS - WILL WAIT ON STARTING BETABLOCKER AT THIS TIME. HYPOMAGNESEMIA AND HYPOKALEMIA - REPLACE WITH IV FLUIDS. Clinical Quality Measures DVT/VTE Risk/Contraindication: Risk Factor Score Per Nursin RFS Level Per Nursing on Admit: 2=Moderate JONATHAN SMITH MD May 08, 2017 09:25
[2017-05-08] MEDS: PANTOPRAZOLE 40 MG/10 ML (PROTONIX) VIAL IV SCH (09:52)
[2017-05-08] MEDS: ONDANSETRON 4 MG/2 ML (SDV) Z0FRAN IV PRN ×3 (09:59→20:43)
[2017-05-08] MEDS: POTASSIUM CL 10MEQ/50ML IVPB 50 ML IV SCH ×2 (10:00→11:04)
[2017-05-08 12:00] VITALS: BP 125/81
[2017-05-08] MEDS: MAGNESIUM 1 GM/100 ML IVPB 100 ML IV SCH ×2 (12:22→13:45)
--- NOTE | 2017-05-08 15:49 | Diagnostic Imaging Report ---
EXAMINATION: Gastrografin small bowel follow through. INDICATION: Nausea and vomiting. TECHNIQUE: Apron Trimmer image of the abdomen was performed. Subsequently, the patient was given Gastrografin orally and serial images of the abdomen were obtained. FINDINGS: Apron Trimmer image of the abdomen demonstrates moderate amount of fecal material. No significant abnormality. There is prompt passage of Gastrografin from the stomach into the duodenum which is moderately dilated. Moderate to severe dilatation of the proximal jejunal loop visualized as seen, estimated at about 30 cm in length with a maximum caliber of 6.5 cm. Multiple followup radiographs are obtained including at 5 hours and 30 minutes demonstrating very minimal amount of contrast passage distal to the proximal jejunum suggestive of a high-grade partial small bowel obstruction. IMPRESSION: Findings compatible with high-grade proximal jejunal partial obstruction. The findings were discussed with Dr. Lilly at the time of dictation. Dictated by: Dictated on workstation # [id number]
[2017-05-08 16:00] VITALS: BP 131/84
[2017-05-08] MEDS ORDERED: PROMETHAZINE INJ 25 MG/ML (PHENERGAN) AMP IVP PRN (16:15)
[2017-05-08] MEDS: METOCLOPRAMIDE INJ 10 MG/2 ML (REGLAN) IVP PRN (16:23)
--- NOTE | 2017-05-08 17:48 | HISTORY AND PHYSICAL ---
DATE OF SERVICE: ATTENDING PRIMARY CARE PHYSICIAN: Sarah Snider MD HISTORY OF PRESENT ILLNESS: The patient is a 26-year-old female known to us. We had initially seen her in 10/2012 for reflux type of symptoms and underwent an EGD with findings of a reflux esophagitis, small hiatal hernia as well as gastritis. No other abnormalities were detected. 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 She continued to have symptoms, was transferred to [facility] and was continued on conservative therapy with anticoagulation. She states that she improved over time and was discharged home and felt well for approximately 1 week; however, had recurrence of nausea and vomiting. She did undergo an ultrasound, which did show a contracted thickened gallbladder wall consistent with a chronic cholecystitis. 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 What was noted was retained food substance within the stomach even after being n.p.o. after 24 hours. She was then discharged home; however, over the past 3 days has had recurrent episodes of nausea and vomiting and dehydration and was admitted. PAST MEDICAL HISTORY: Superior mesenteric vein thrombosis, anxiety and history of panic attacks. PAST SURGICAL HISTORY: Labial biopsy in 2006 which was benign, laparoscopic cholecystectomy in 05/05/2017. ALLERGIES: No known drug allergies. MEDICATIONS: Cetirizine 10 mg daily, cyclobenzaprine 10 mg t.i.d. p.r.n., enoxaparin 100 mg b.i.d., gabapentin 300 mg q.8 hours p.r.n., Reglan 10 mg q.i.d., Zofran 4 mg q.4 hours p.r.n., oxycodone 10 mg q.4 hours p.r.n., Protonix 40 mg b.i.d., promethazine 12.5 mg q.3 hours p.r.n., tramadol p.r.n. SOCIAL HISTORY: Negative smoke. Negative alcohol. FAMILY HISTORY: Noncontributory. VITAL SIGNS: Temperature 98.9, blood pressure 125/81, pulse 91, respirations 18, pulse ox 99% on room air. REVIEW OF SYSTEMS: Well-nourished female, currently in no acute distress. She is not experiencing any shortness of breath or difficulty breathing. No chest pain, palpitations, diaphoresis. Persistent episodes of nausea and vomiting; however, after the episodes of vomiting, she will feel better until taking in solids or liquids again. She reports bilious emesis as well as undigested foods and liquids. No hematemesis, no coffee-ground emesis. She is having bowel movements, however, infrequent and passing flatus. No red blood per rectum, no dark tarry stools. No fever or chills with some weight loss since the beginning of March. All other review of systems negative. PHYSICAL EXAMINATION: CHEST: Clear. Good breath sounds bilaterally. HEART: Regular, no murmurs. EXTREMITIES: No lower extremity edema, negative Homans sign. HEENT: No scleral icterus. NECK: No cervical lymphadenopathy. ABDOMEN: Soft, nondistended. There is mild discomfort in the incisions of the recent laparoscopic cholecystectomy as well as the right lateral abdomen. No peritoneal signs. SKIN: Warm and dry. LABORATORY DATA: WBC 4.4, hemoglobin 10.1, hematocrit 31, platelets 361. Liver function enzymes are normal as are amylase and lipase. ASSESSMENT AND PLAN: A 26-year-old female with persistent nausea and vomiting. A CT scan was performed which did show a dilated stomach, duodenum and proximal small bowel, which may be consistent with a partial proximal small bowel obstruction. Upper gastrointestinal contrast study with small bowel follow-through was performed, which again showed similar obstructive type of symptoms with some contrast flow eventually over several hours. We will get a delayed film in the a.m. Her only surgery in the past was this recent laparoscopic cholecystectomy. We feel that the obstruction may be related to the previous superior mesenteric vein thrombosis causing venous congestion of the proximal small bowel and edema with eventual arterial insufficiency and a potential stricture. Again, we will continue with conservative management right now with IV hydration and get a delayed film the following day. We may also get a repeat CT angiogram with a 5 minute delay to look at the venous phase to see about potential improvement or resolution of the superior mesenteric vein thrombosis. We feel that if she continues to be symptomatic from a high-grade partial proximal small bowel obstruction, we will proceed with a diagnostic laparoscopy and potential small bowel resection and reanastomosis. Job ID: [id number] DocumentID: [id number] Dictated Date: 05/08/2017 16:30:19 Catshovel Driver Date: 05/08/2017 17:48:19 Dictated By: PABLITO MARION MD MTDD
[2017-05-08 20:00] VITALS: BP 132/82
[2017-05-08] MEDS: CIPROFLOXACIN IV 400MG/200ML 200 ML IV SCH (20:28)
[2017-05-09] VITALS: BP 124/73
[2017-05-09] MEDS: HYDROmorphone (DILAUDID) 2 MG/ML VIAL IV PRN ×6 (02:43→20:29)
[2017-05-09 04:00] VITALS: BP 128/63
[2017-05-09] MEDS: D5 1/2 NS W/KCL 20 MEQ/L 1,000 ML IV SCH ×3 (04:32→20:22)
[2017-05-09 08:00] VITALS: BP 111/61
[2017-05-09] MEDS: CIPROFLOXACIN IV 400MG/200ML 200 ML IV SCH ×2 (08:51→20:23)
[2017-05-09] MEDS: PANTOPRAZOLE 40 MG/10 ML (PROTONIX) VIAL IV SCH (08:51)
[2017-05-09 09:02] LABS: MEAN PLATELET VOLUME 9.9 FL (7.4-10.4); RED BLOOD COUNT 3.6 10^6/uL (4.35-5.85); RED CELL DISTRIBUTION WIDTH 13.2 % (10.0-14.5); WHITE BLOOD COUNT 4.7 10^3/uL (4.3-11.0)
--- NOTE | 2017-05-09 09:08 | Progress Note (SOAP) ---
Subjective Date Seen by Provider: May 09, 2017 Time Seen by Provider: 09:00 Subjective/Events-last exam PT IS A 26 Y/O FEMALE WHO IS WELL KNOWN TO ME FROM CLINIC. SHE STATES THAT SHE IS STILL HAVING ABDOMINAL DISCOMFORT AND SHE IS STILL SOMEWHAT NAUSEATED, BUT IT IS IMPROVED FROM YESTERDAY. SHE REPORTS THAT SHE IS NOT DRINKING MUCH BUT WHEN SHE DOES DRINK, IT IS BETTER THAN YESTERDAY. Review of Systems General: Fatigue, No Malaise HEENT: No Head Aches Pulmonary: No Dyspnea, No Cough Cardiovascular: No: Chest Pain, Palpitations Gastrointestinal: Nausea, Abdominal Pain Genitourinary: No Dysuria Neurological: Weakness, No: Confusion Objective Exam Vital Signs Date Time Temp Pulse Resp B/P (MAP) Pulse Ox O2 Delivery O2 Flow Rate FiO2 05/09/17 04:00 98.2 105 16 128/63 (84) 98 Room Air 05/09/17 01:00 94 05/09/17 00:00 97.5 106 16 124/73 (90) 99 Room Air 05/08/17 20:00 96.9 97 20 132/82 (99) 97 Room Air 05/08/17 19:00 147 05/08/17 16:00 97.8 117 20 131/84 (100) 97 Room Air 05/08/17 13:00 91 05/08/17 12:00 98.9 93 18 125/81 (96) 99 Room Air I & O 05/09/17 07:00 Intake Total 2200 ml Output Total 2400 ml Balance -200 ml Capillary Refill : Less Than 3 Seconds General Appearance: No Apparent Distress, WD/WN HEENT: PERRL/EOMI, Pharynx Normal Neck: Full Range of Motion, Supple Respiratory: Chest Non Tender, Lungs Clear, Normal Breath Sounds Cardiovascular: Regular Rate, Rhythm Gastrointestinal: soft, tenderness (IN EPIGASTRIUM AND UPPER LEFT AND RIGHT QUADRANTS) Extremity: No Pedal Edema Neurologic/Psychiatric: Alert, Oriented x3, No Motor/Sensory Deficits, Normal Mood/Affect Skin: Warm/Dry, Other (BLISTER IN UMBILICUS) Results Lab Laboratory Tests 05/09/17 08:49: White Blood Count 4.7, Red Blood Count 3.60L, Hemoglobin 9.9L, Hematocrit 31L, Mean Corpuscular Volume 87, Mean Corpuscular Hemoglobin 28, Mean Corpuscular Hemoglobin Concent 32, Red Cell Distribution Width 13.2, Platelet Count 331, Mean Platelet Volume 9.9 Microbiology 12/3/17 Blood Culture - Preliminary, Resulted No growth 12/3/17 Urine Culture - Final, Complete Staph, Coag Neg (Donor Relations Manager) Assessment/Plan Assessment/Plan Assess & Plan/Chief Complaint SMALL BOWEL OBSTRUCTION NAUSEA ABDOMINAL PAIN MESENTERIC VEIN THROMBOSIS POD #3 CHOLECYSTECTOMY TACHYCARDIA HYPOMAGNESEMIA HYPOKALEMIA SMALL BOWEL OBSTRUCTION - DEFER TO DR. MARION -SMALL BOWEL FOLLOW THROUGH SHOWED JEJUNAL OBSTRUCTION - ILEUS NAUSEA AND ABDOMINAL PAIN - CONCERN FOR POSSIBLE REACTION FROM LOVENOX - WILL WAIT TO SEE IF HER SMALL BOWEL OBSTRUCTION IMPROVING HELPS TO IMPROVE HER SYMPTOMS OF NAUSEA AND ABDOMINAL PAIN - IF NOT, THEN NEED TO CONSIDER THAT SHE IS PART OF THE 3% THAT HAVE NAUSEA DUE TO LOVENOX. MESENTERIC VEIN THROMBOSIS - CONTINUE WITH LOVENOX. POD #4 CHOLECYSTECTOMY TACHYCARDIA - MONITOR SYMPTOMS - WILL WAIT ON STARTING BETABLOCKER AT THIS TIME. HYPOMAGNESEMIA AND HYPOKALEMIA - REPLACE WITH IV FLUIDS. Clinical Quality Measures DVT/VTE Risk/Contraindication: Risk Factor Score Per Nursin RFS Level Per Nursing on Admit: 2=Moderate JONATHAN SMITH MD May 09, 2017 09:08
[2017-05-09] MEDS ORDERED: SALIVA STIMULANT MOUTH SPRAY (BIOTENE) 1.5 OZ MM PRN (09:15)
[2017-05-09 09:22] LABS: ANION GAP 7 MMOL/L (5-14); BLOOD UREA NITROGEN 2 MG/DL (7-18); BUN/CREATININE RATIO 3; CALCIUM 8.4 MG/DL (8.5-10.1); CARBON DIOXIDE 28 MMOL/L (21-32); CHLORIDE 101 MMOL/L (98-107); CREATININE SERUM 0.75 MG/DL (0.60-1.30); GFR ESTIMATED > 60; GLUCOSE 135 MG/DL (70-105); POTASSIUM 3.7 MMOL/L (3.6-5.0); SODIUM 136 MMOL/L (135-145)
[2017-05-09] MEDS: ENOXAPARIN 80 MG/0.8 ML (LOVENOX) SYR SC SCH ×2 (10:01→20:23)
[2017-05-09 12:00] VITALS: BP 115/67
--- NOTE | 2017-05-09 12:57 | Progress Note (SOAP) ---
Subjective Date Seen by Provider: May 09, 2017 Time Seen by Provider: 12:00 Subjective/Events-last exam doing better today. tolerating small amounts liquids. Objective Exam Vital Signs Date Time Temp Pulse Resp B/P (MAP) Pulse Ox O2 Delivery O2 Flow Rate FiO2 05/09/17 08:00 97.9 102 20 111/61 (78) 98 Room Air 05/09/17 07:00 85 05/09/17 04:00 98.2 105 16 128/63 (84) 98 Room Air 05/09/17 01:00 94 05/09/17 00:00 97.5 106 16 124/73 (90) 99 Room Air 05/08/17 20:00 96.9 97 20 132/82 (99) 97 Room Air 05/08/17 19:00 147 05/08/17 16:00 97.8 117 20 131/84 (100) 97 Room Air 05/08/17 13:00 91 I & O 05/09/17 07:00 Intake Total 2200 ml Output Total 2400 ml Balance -200 ml Capillary Refill : Less Than 3 Seconds General Appearance: No Apparent Distress HEENT: PERRL/EOMI Neck: Full Range of Motion Respiratory: Chest Non Tender, Lungs Clear, Normal Breath Sounds Cardiovascular: Regular Rate, Rhythm Gastrointestinal: normal bowel sounds, non tender, soft Extremity: Normal Capillary Refill Neurologic/Psychiatric: Alert, Oriented x3 Skin: Normal Color Lymphatic: No Adenopathy Results Lab Laboratory Tests 05/09/17 08:49: White Blood Count 4.7, Red Blood Count 3.60L, Hemoglobin 9.9L, Hematocrit 31L, Mean Corpuscular Volume 87, Mean Corpuscular Hemoglobin 28, Mean Corpuscular Hemoglobin Concent 32, Red Cell Distribution Width 13.2, Platelet Count 331, Mean Platelet Volume 9.9, Sodium Level 136, Potassium Level 3.7, Chloride Level 101, Carbon Dioxide Level 28, Anion Gap 7, Blood Urea Nitrogen 2L, Creatinine 0.75, Estimat Glomerular Filtration Rate > 60, BUN/Creatinine Ratio 3, Glucose Level 135H, Calcium Level 8.4L Microbiology 05/07/17 Blood Culture - Preliminary, Resulted No growth 05/07/17 Urine Culture - Final, Complete Staph, Coag Neg (Credit Administration Manager) Assessment/Plan Assessment/Plan Assess & Plan/Chief Complaint doing better. will continue with conservative management for now. continue lovenox. clear liquid diet. Clinical Quality Measures DVT/VTE Risk/Contraindication: Risk Factor Score Per Nursin RFS Level Per Nursing on Admit: 2=Moderate PABLITO MARION MD May 09, 2017 12:57 pm
[2017-05-09 15:47] VITALS: BP 119/73
[2017-05-09] MEDS: meTOprolol TARTRATE 25 MG (LOPRESSOR) TABLET PO SCH ×2 (16:16→20:23)
[2017-05-09 20:00] VITALS: BP 127/74
[2017-05-09] MEDS: PANTOPRAZOLE 40 MG (PROTONIX) TAB PO SCH (20:23)
[2017-05-09] MEDS: ONDANSETRON 4 MG/2 ML (SDV) Z0FRAN IV PRN (20:29)
[2017-05-10] VITALS: BP 116/72
[2017-05-10] MEDS: HYDROmorphone (DILAUDID) 2 MG/ML VIAL IV PRN ×4 (00:14→21:12)
[2017-05-10] MEDS: ONDANSETRON 4 MG/2 ML (SDV) Z0FRAN IV PRN ×5 (00:22→21:12)
[2017-05-10 04:00] VITALS: BP 113/67
[2017-05-10] MEDS: D5 1/2 NS W/KCL 20 MEQ/L 1,000 ML IV SCH ×3 (04:12→13:58)
[2017-05-10 06:27] LABS: MEAN PLATELET VOLUME 10.6 FL (7.4-10.4); RED BLOOD COUNT 3.58 10^6/uL (4.35-5.85); RED CELL DISTRIBUTION WIDTH 13.1 % (10.0-14.5); WHITE BLOOD COUNT 4.6 10^3/uL (4.3-11.0)
[2017-05-10 06:45] LABS: ANION GAP 8 MMOL/L (5-14); BLOOD UREA NITROGEN 2 MG/DL (7-18); BUN/CREATININE RATIO 3; CALCIUM 8.3 MG/DL (8.5-10.1); CARBON DIOXIDE 25 MMOL/L (21-32); CHLORIDE 103 MMOL/L (98-107); CREATININE SERUM 0.77 MG/DL (0.60-1.30); GFR ESTIMATED > 60; GLUCOSE 124 MG/DL (70-105); MAGNESIUM 1.5 MG/DL (1.8-2.4); SODIUM 136 MMOL/L (135-145)
[2017-05-10] MEDS: METOCLOPRAMIDE INJ 10 MG/2 ML (REGLAN) IVP PRN (07:36)
[2017-05-10 08:00] VITALS: BP 106/59
--- NOTE | 2017-05-10 08:27 | Progress Note (SOAP) ---
Subjective Date Seen by Provider: May 10, 2017 Time Seen by Provider: 08:25 Subjective/Events-last exam PT REPORTS THAT SHE IS FEELING BETTER, BUT HAD QUITE A BIT OF EMESIS YESTERDAY. - ABOUT 1000ML SHE STATES THAT HER ABDOMEN IS UNCOMFORTABLE. Review of Systems General: No Chills, Fatigue HEENT: No Head Aches Pulmonary: No Dyspnea, No Cough Cardiovascular: No: Chest Pain, Palpitations Gastrointestinal: Nausea, Vomiting, Abdominal Pain Musculoskeletal: No: back pain Neurological: Weakness, No: Confusion Objective Exam Vital Signs Date Time Temp Pulse Resp B/P (MAP) Pulse Ox O2 Delivery O2 Flow Rate FiO2 05/10/17 08:00 97.7 85 16 106/59 (75) 98 Room Air 05/10/17 04:00 97.9 85 14 113/67 (82) 99 Room Air 05/10/17 01:00 90 05/10/17 00:00 97.9 84 14 116/72 (87) 99 Room Air 05/09/17 20:00 98.9 85 21 127/74 (91) 97 Room Air 05/09/17 19:00 114 05/09/17 15:47 99.1 96 20 119/73 (88) 97 Room Air 05/09/17 13:00 91 05/09/17 12:00 99.5 87 20 115/67 (83) 98 Room Air I & O 05/10/17 07:00 Intake Total 3640 ml Output Total 3400 ml Balance 240 ml Capillary Refill : Less Than 3 Seconds General Appearance: No Apparent Distress, WD/WN HEENT: PERRL/EOMI Neck: Supple Respiratory: Chest Non Tender, Lungs Clear, Normal Breath Sounds Cardiovascular: Regular Rate, Rhythm Gastrointestinal: normal bowel sounds, non tender, soft Extremity: Normal Capillary Refill, Non Tender, No Pedal Edema Neurologic/Psychiatric: Alert, Oriented x3, No Motor/Sensory Deficits, Normal Mood/Affect Skin: Warm/Dry Lymphatic: No Adenopathy Results Lab Laboratory Tests 05/09/17 08:49: White Blood Count 4.7, Red Blood Count 3.60L, Hemoglobin 9.9L, Hematocrit 31L, Mean Corpuscular Volume 87, Mean Corpuscular Hemoglobin 28, Mean Corpuscular Hemoglobin Concent 32, Red Cell Distribution Width 13.2, Platelet Count 331, Mean Platelet Volume 9.9, Sodium Level 136, Potassium Level 3.7, Chloride Level 101, Carbon Dioxide Level 28, Anion Gap 7, Blood Urea Nitrogen 2L, Creatinine 0.75, Estimat Glomerular Filtration Rate > 60, BUN/Creatinine Ratio 3, Glucose Level 135H, Calcium Level 8.4L 05/10/17 05:49: White Blood Count 4.6, Red Blood Count 3.58L, Hemoglobin 10.0L, Hematocrit 31L, Mean Corpuscular Volume 88, Mean Corpuscular Hemoglobin 28, Mean Corpuscular Hemoglobin Concent 32, Red Cell Distribution Width 13.1, Platelet Count 337, Mean Platelet Volume 10.6H, Sodium Level 136, Potassium Level 4.0, Chloride Level 103, Carbon Dioxide Level 25, Anion Gap 8, Blood Urea Nitrogen 2L, Creatinine 0.77, Estimat Glomerular Filtration Rate > 60, BUN/Creatinine Ratio 3 , Glucose Level 124H, Calcium Level 8.3L, Magnesium Level 1.5L Microbiology 05/07/17 Blood Culture - Preliminary, Resulted No growth 05/07/17 Urine Culture - Final, Complete Staph, Coag Neg (Business Intelligence Architect) Assessment/Plan Assessment/Plan Assess & Plan/Chief Complaint SMALL BOWEL OBSTRUCTION NAUSEA ABDOMINAL PAIN MESENTERIC VEIN THROMBOSIS POD #3 CHOLECYSTECTOMY TACHYCARDIA HYPOMAGNESEMIA HYPOKALEMIA SMALL BOWEL OBSTRUCTION - DEFER TO DR. MARION -SMALL BOWEL FOLLOW THROUGH SHOWED JEJUNAL OBSTRUCTION - ILEUS - PT HAD EMESIS LAST NIGHT - PT MAY NEED AN NG TUBE TO DECOMPRESS HER GI TRACT. NAUSEA AND ABDOMINAL PAIN - CONCERN FOR POSSIBLE REACTION FROM LOVENOX - WILL WAIT TO SEE IF HER SMALL BOWEL OBSTRUCTION IMPROVING HELPS TO IMPROVE HER SYMPTOMS OF NAUSEA AND ABDOMINAL PAIN - IF NOT, THEN NEED TO CONSIDER THAT SHE IS PART OF THE 3% THAT HAVE NAUSEA DUE TO LOVENOX. MESENTERIC VEIN THROMBOSIS - CONTINUE WITH LOVENOX. POD #4 CHOLECYSTECTOMY TACHYCARDIA - MONITOR SYMPTOMS - WILL WAIT ON STARTING BETABLOCKER AT THIS TIME. HYPOMAGNESEMIA AND HYPOKALEMIA - REPLACE WITH IV FLUIDS. Clinical Quality Measures DVT/VTE Risk/Contraindication: Risk Factor Score Per Nursin RFS Level Per Nursing on Admit: 2=Moderate JONATHAN SMITH MD May 10, 2017 08:27
[2017-05-10] MEDS: ENOXAPARIN 80 MG/0.8 ML (LOVENOX) SYR SC SCH ×2 (09:02→21:06)
[2017-05-10] MEDS: PANTOPRAZOLE 40 MG (PROTONIX) TAB PO SCH ×2 (09:02→21:06)
[2017-05-10] MEDS: CIPROFLOXACIN IV 400MG/200ML 200 ML IV SCH ×2 (09:02→21:11)
[2017-05-10] MEDS: meTOprolol TARTRATE 25 MG (LOPRESSOR) TABLET PO SCH ×2 (09:02→21:06)
[2017-05-10] MEDS: MAGNESIUM 1 GM/100 ML IVPB 100 ML IV SCH ×3 (10:19→13:55)
[2017-05-10 12:00] VITALS: BP 110/63
--- NOTE | 2017-05-10 15:44 | Progress Note (SOAP) ---
Subjective Date Seen by Provider: May 10, 2017 Time Seen by Provider: 15:40 Subjective/Events-last exam doing ok. still has intermittent nausea and vomiting usually at night. minimal abd pain. urinating well and passing flatus. Objective Exam Vital Signs Date Time Temp Pulse Resp B/P (MAP) Pulse Ox O2 Delivery O2 Flow Rate FiO2 05/10/17 12:00 98.0 79 16 110/63 (79) 98 Room Air 05/10/17 08:00 97.7 85 16 106/59 (75) 98 Room Air 05/10/17 08:00 Room Air 05/10/17 04:00 97.9 85 14 113/67 (82) 99 Room Air 05/10/17 01:00 90 05/10/17 00:00 97.9 84 14 116/72 (87) 99 Room Air 05/09/17 20:00 98.9 85 21 127/74 (91) 97 Room Air 05/09/17 19:00 114 05/09/17 15:47 99.1 96 20 119/73 (88) 97 Room Air I & O 05/10/17 07:00 Intake Total 3640 ml Output Total 3400 ml Balance 240 ml Capillary Refill : Less Than 3 SecondsLess Than 3 Seconds General Appearance: No Apparent Distress HEENT: PERRL/EOMI Neck: Full Range of Motion Respiratory: Chest Non Tender, Lungs Clear, Normal Breath Sounds Cardiovascular: Regular Rate, Rhythm Gastrointestinal: normal bowel sounds, soft Extremity: Normal Capillary Refill Neurologic/Psychiatric: Alert, Oriented x3 Skin: Normal Color Lymphatic: No Adenopathy Results Lab Laboratory Tests 05/10/17 05:49: White Blood Count 4.6, Red Blood Count 3.58L, Hemoglobin 10.0L, Hematocrit 31L, Mean Corpuscular Volume 88, Mean Corpuscular Hemoglobin 28, Mean Corpuscular Hemoglobin Concent 32, Red Cell Distribution Width 13.1, Platelet Count 337, Mean Platelet Volume 10.6H, Sodium Level 136, Potassium Level 4.0, Chloride Level 103, Carbon Dioxide Level 25, Anion Gap 8, Blood Urea Nitrogen 2L, Creatinine 0.77, Estimat Glomerular Filtration Rate > 60, BUN/Creatinine Ratio 3 , Glucose Level 124H, Calcium Level 8.3L, Magnesium Level 1.5L Microbiology 05/07/17 Blood Culture - Preliminary, Resulted No growth 05/07/17 Urine Culture - Final, Complete Staph, Coag Neg (In[employer]) Assessment/Plan Assessment/Plan Assess & Plan/Chief Complaint doing better. will continue with conservative management for now. continue lovenox. clear liquid diet. CTS abd and pelvis with delayed venous phase. Clinical Quality Measures DVT/VTE Risk/Contraindication: Risk Factor Score Per Nursin RFS Level Per Nursing on Admit: 2=Moderate PABLITO MARION MD May 10, 2017 3:44 pm
[2017-05-10 16:02] VITALS: BP 97/57
[2017-05-10 19:24] VITALS: BP 109/67
[2017-05-10] MEDS: SCOPOLAMINE 1.5 MG (TRANSDERM-SCOP) PATCH TOP SCH (21:11)
[2017-05-11] VITALS: BP 108/59
[2017-05-11] MEDS: HYDROmorphone (DILAUDID) 2 MG/ML VIAL IV PRN ×5 (00:06→20:46)
[2017-05-11] MEDS: D5 1/2 NS W/KCL 20 MEQ/L 1,000 ML IV SCH ×4 (02:13→20:24)
[2017-05-11 04:00] VITALS: BP 100/57
[2017-05-11] MEDS: ONDANSETRON 4 MG/2 ML (SDV) Z0FRAN IV PRN ×4 (05:12→20:45)
[2017-05-11 08:34] VITALS: BP 106/64
--- NOTE | 2017-05-11 08:49 | Progress Note (SOAP) ---
Subjective Date Seen by Provider: May 11, 2017 Time Seen by Provider: 08:49 Subjective/Events-last exam PT REPORTS CONTINUED DISCOMFORT AND SOME EMESIS LAST NIGHT. SHE REPORTS THAT ALTHOUGH SHE IS NOT COMPLETELY BETTER, SHE IS FEELING BETTER WITH THE IV FLUIDS AND OCCASIONAL SIPS OF FLUIDS. Review of Systems General: Fatigue HEENT: No Head Aches, No Visual Changes, No Dysphasia Pulmonary: No Dyspnea, No Cough Cardiovascular: No: Chest Pain, Palpitations Gastrointestinal: Nausea, Vomiting, Abdominal Pain Genitourinary: No Dysuria, No Frequency Neurological: Weakness, No: Confusion Objective Exam Vital Signs Date Time Temp Pulse Resp B/P (MAP) Pulse Ox O2 Delivery O2 Flow Rate FiO2 05/11/17 08:34 97.8 72 20 106/64 (78) 99 Room Air 05/11/17 04:00 97.0 68 16 100/57 (71) 98 Room Air 05/11/17 01:00 74 05/11/17 00:00 97.5 75 15 108/59 (75) 99 Room Air 05/10/17 21:11 Room Air 05/10/17 19:24 98.2 79 20 109/67 (81) 99 Room Air 05/10/17 19:00 73 05/10/17 16:02 98.2 86 20 97/57 (70) 99 Room Air 05/10/17 12:00 98.0 79 16 110/63 (79) 98 Room Air I & O 05/11/17 07:00 Intake Total 1650 ml Output Total 4200 ml Balance -2550 ml Capillary Refill : Less Than 3 SecondsLess Than 3 Seconds General Appearance: No Apparent Distress, WD/WN HEENT: PERRL/EOMI Neck: Full Range of Motion, Supple Respiratory: Chest Non Tender, Lungs Clear, Normal Breath Sounds, No Accessory Muscle Use Cardiovascular: Regular Rate, Rhythm, No Edema Gastrointestinal: other (FAINT BOWEL SOUNDS, TENDER RIGHT MID TO LOWER QUADRANT , BLISTER IN UMBILICUS) Extremity: No Calf Tenderness, No Pedal Edema Neurologic/Psychiatric: Alert, Oriented x3, No Motor/Sensory Deficits, Normal Mood/Affect Skin: Warm/Dry, Other (BLISTER IN UMBILICUS) Results Lab Microbiology 05/07/17 Blood Culture - Preliminary, Resulted No growth 05/07/17 Urine Culture - Final, Complete Staph, Coag Neg (Retail Mortgage Banker) Assessment/Plan Assessment/Plan Assess & Plan/Chief Complaint SMALL BOWEL OBSTRUCTION NAUSEA ABDOMINAL PAIN MESENTERIC VEIN THROMBOSIS POD #3 CHOLECYSTECTOMY TACHYCARDIA HYPOMAGNESEMIA HYPOKALEMIA SMALL BOWEL OBSTRUCTION - DEFER TO DR. MARION -SMALL BOWEL FOLLOW THROUGH SHOWED JEJUNAL OBSTRUCTION - ILEUS - PT HAD EMESIS AGAIN LAST NIGHT. NAUSEA AND ABDOMINAL PAIN - CONCERN FOR POSSIBLE REACTION FROM LOVENOX - WILL WAIT TO SEE IF HER SMALL BOWEL OBSTRUCTION IMPROVING HELPS TO IMPROVE HER SYMPTOMS OF NAUSEA AND ABDOMINAL PAIN - IF NOT, THEN NEED TO CONSIDER THAT SHE IS PART OF THE 3% THAT HAVE NAUSEA DUE TO LOVENOX. MESENTERIC VEIN THROMBOSIS - CONTINUE WITH LOVENOX. POD #4 CHOLECYSTECTOMY TACHYCARDIA - MONITOR SYMPTOMS - WILL WAIT ON STARTING BETABLOCKER AT THIS TIME. HYPOMAGNESEMIA AND HYPOKALEMIA - REPLACE WITH IV FLUIDS. Clinical Quality Measures DVT/VTE Risk/Contraindication: Risk Factor Score Per Nursin RFS Level Per Nursing on Admit: 2=Moderate JONATHAN SMITH MD May 11, 2017 08:49
[2017-05-11] MEDS: ENOXAPARIN 80 MG/0.8 ML (LOVENOX) SYR SC SCH ×2 (10:11→20:25)
[2017-05-11] MEDS ORDERED: IOHEXOL 350 MG/ML 100 ML (OMNIPAQUE 350) VIAL IV ONE (10:30)
[2017-05-11] MEDS ORDERED: NS 100 ML (IVPB) BAG IV ONE (10:30)
[2017-05-11] MEDS: CIPROFLOXACIN IV 400MG/200ML 200 ML IV SCH (10:43)
[2017-05-11] MEDS: PANTOPRAZOLE 40 MG (PROTONIX) TAB PO SCH ×2 (10:44→20:24)
[2017-05-11] MEDS: meTOprolol TARTRATE 25 MG (LOPRESSOR) TABLET PO SCH ×3 (10:44→20:49)
--- NOTE | 2017-05-11 11:32 | Diagnostic Imaging Report ---
PROCEDURE: CT abdomen and pelvis with contrast. TECHNIQUE: Multiple contiguous axial images were obtained through the abdomen and pelvis after administration of intravenous contrast. INDICATION: History of SMV thrombosis. Bowel obstruction. FINDINGS: When compared to 05/07/2017, no significant change in high-grade partial small bowel obstruction of the proximal jejunum is seen with transition point in the mid left abdomen. There is fluid distention of the stomach, duodenum and the proximal jejunal loops. Transition point is seen with distal decompressed small bowel loops noted. There is contrast seen in the colon which is probably from the small bowel follow-through performed 3 days prior to this exam. There is a small amount of free fluid in the pelvis noted. Mildly enlarged mesenteric lymph nodes are again noted with mesenteric stranding suggestive of an inflammatory process. There is a partially occlusive thrombus without significant change seen in the main portal vein with thrombosis in the superior mesenteric vein is again noted. The liver demonstrate focal hypodensity near the falciform ligaments likely related to focal fatty infiltration. The spleen is not enlarged. Hypodense lesions are noted within the spleen may relate to atypical hemangiomas up to 2.5 CM in size. The pancreas and the adrenal glands appear unremarkable. Cholecystectomy clips are seen. The abdominal aorta is normal in caliber. No para-aortic significantly enlarged lymph node is seen. The uterus and the adnexa appear grossly unremarkable. The kidneys have symmetric enhancement and contrast excretion. No hydronephrosis. The bladder appears unremarkable. The osseous structures demonstrate mild degenerative change in the SI joints. IMPRESSION: 1. High-grade partial small bowel obstruction in the proximal jejunum without significant change. 2. 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 3. Lymphadenopathy and stranding in the mesentery may relate to inflammation, or potentially secondary to venous engorgement from SMV thrombosis. Dr. Lilly is called and informed about the findings at time of dictation. Dictated by: Dictated on workstation # [id number]
[2017-05-11 12:00] VITALS: BP 109/72
[2017-05-11 16:00] VITALS: BP 116/74
[2017-05-11] MEDS ORDERED: AA 4.25% W/LYTES IN D5W IV SOL 1,000 ML IV SCH (16:15)
--- NOTE | 2017-05-11 16:44 | Progress Note (SOAP) ---
Subjective Date Seen by Provider: May 11, 2017 Time Seen by Provider: 16:00 Subjective/Events-last exam doing ok. tolerating some diet. pain controlled. Objective Exam Vital Signs Date Time Temp Pulse Resp B/P (MAP) Pulse Ox O2 Delivery O2 Flow Rate FiO2 05/11/17 16:00 99.1 73 20 116/74 (88) 100 Room Air 05/11/17 12:00 99.3 80 18 109/72 (84) 99 Room Air 05/11/17 08:34 97.8 72 20 106/64 (78) 99 Room Air 05/11/17 08:00 Room Air 05/11/17 07:33 67 05/11/17 04:00 97.0 68 16 100/57 (71) 98 Room Air 05/11/17 01:00 74 05/11/17 00:00 97.5 75 15 108/59 (75) 99 Room Air 05/10/17 21:11 Room Air 05/10/17 19:24 98.2 79 20 109/67 (81) 99 Room Air 05/10/17 19:00 73 I & O 05/11/17 07:00 Intake Total 1650 ml Output Total 4200 ml Balance -2550 ml Capillary Refill : Less Than 3 SecondsLess Than 3 Seconds General Appearance: No Apparent Distress HEENT: PERRL/EOMI Neck: Full Range of Motion Respiratory: Chest Non Tender, Lungs Clear, Normal Breath Sounds Cardiovascular: Regular Rate, Rhythm Gastrointestinal: normal bowel sounds, non tender Extremity: Normal Capillary Refill Neurologic/Psychiatric: Alert, Oriented x3 Skin: Normal Color Lymphatic: No Adenopathy Results Lab Microbiology 05/07/17 Blood Culture - Preliminary, Resulted No growth 05/07/17 Urine Culture - Final, Complete Staph, Coag Neg (Cardio Clinician) Assessment/Plan Assessment/Plan Assess & Plan/Chief Complaint doing better. will continue with conservative management for now. continue lovenox. clear liquid diet. CTS abd and pelvis with delayed venous phase shows continued thrombus SMV with recanulization distally. edema/stricture jejunum still apparent. will continue Heparin SQ for now. if does not progress by monday will proceed with dx laparoscopy. Clinical Quality Measures DVT/VTE Risk/Contraindication: Risk Factor Score Per Nursin RFS Level Per Nursing on Admit: 2=Moderate PABLITO MARION MD May 11, 2017 4:43 pm
[2017-05-11 20:24] VITALS: BP 103/56
[2017-05-12] VITALS: BP 110/59
[2017-05-12] MEDS: HYDROmorphone (DILAUDID) 2 MG/ML VIAL IV PRN ×5 (00:48→20:14)
[2017-05-12] MEDS: ONDANSETRON 4 MG/2 ML (SDV) Z0FRAN IV PRN ×5 (00:48→20:12)
[2017-05-12 04:00] VITALS: BP 120/61
[2017-05-12] MEDS: D5 1/2 NS W/KCL 20 MEQ/L 1,000 ML IV SCH (05:48)
[2017-05-12 06:11] LABS: MEAN PLATELET VOLUME 10.3 FL (7.4-10.4); RED BLOOD COUNT 3.71 10^6/uL (4.35-5.85); RED CELL DISTRIBUTION WIDTH 13.5 % (10.0-14.5); WHITE BLOOD COUNT 6.6 10^3/uL (4.3-11.0)
[2017-05-12 06:27] LABS: ALANINE AMINOTRANSFERASE 52 U/L (0-55); ALBUMIN 2.8 GM/DL (3.2-4.5); ANION GAP 11 MMOL/L (5-14); ASPARTATE AMINO TRANSFERASE 34 U/L (5-34); BILIRUBIN,TOTAL 0.3 MG/DL (0.1-1.0); BLOOD UREA NITROGEN 3 MG/DL (7-18); BUN/CREATININE RATIO 4; CALCIUM 8.4 MG/DL (8.5-10.1); CARBON DIOXIDE 23 MMOL/L (21-32); CHLORIDE 104 MMOL/L (98-107); CREATININE SERUM 0.85 MG/DL (0.60-1.30); GFR ESTIMATED > 60; GLUCOSE 107 MG/DL (70-105); MAGNESIUM 1.7 MG/DL (1.8-2.4); POTASSIUM 4.5 MMOL/L (3.6-5.0); SODIUM 138 MMOL/L (135-145); TOTAL PROTEIN 5.5 GM/DL (6.4-8.2)
[2017-05-12 08:00] VITALS: BP 117/74
[2017-05-12] MEDS: AA 4.25% W/LYTES IN D5W IV SOL 1,000 ML IV SCH ×3 (08:30→18:36)
[2017-05-12] MEDS: PANTOPRAZOLE 40 MG (PROTONIX) TAB PO SCH ×2 (08:34→20:15)
[2017-05-12] MEDS: meTOprolol TARTRATE 25 MG (LOPRESSOR) TABLET PO SCH ×2 (08:34→20:18)
[2017-05-12] MEDS: ENOXAPARIN 80 MG/0.8 ML (LOVENOX) SYR SC SCH ×2 (08:34→20:15)
--- NOTE | 2017-05-12 08:58 | Progress Note (SOAP) ---
Subjective Date Seen by Provider: May 12, 2017 Time Seen by Provider: 09:10 Subjective/Events-last exam PT REPORTS THAT SHE IS FEELING ABOUT THE SAME YESTERDAY - SHE HAD TWO BOUTS OF VOMITING LAST NIGHT AND SHE REPORTS ABOUT 450ML IN ONE EPISODE AND 500ML IN THE SECOND EPISODE OF EMESIS. SHE REPORTS THAT HER ABDOMINAL PAIN IS PERSISTENT. Review of Systems General: No Chills, Fatigue HEENT: No Head Aches Pulmonary: No Dyspnea, No Cough Cardiovascular: No: Chest Pain, Palpitations Gastrointestinal: Nausea, Abdominal Pain Genitourinary: No Dysuria Neurological: Weakness, No: Confusion Objective Exam Vital Signs Date Time Temp Pulse Resp B/P (MAP) Pulse Ox O2 Delivery O2 Flow Rate FiO2 05/12/17 08:00 97.4 87 20 117/74 (88) 99 Room Air 05/12/17 04:00 97.8 85 18 120/61 (80) 98 Room Air 05/12/17 00:00 98.4 87 17 110/59 (76) 98 Room Air 05/11/17 20:30 Room Air 05/11/17 20:24 76 103/56 (72) 05/11/17 16:00 99.1 73 20 116/74 (88) 100 Room Air 05/11/17 12:00 99.3 80 18 109/72 (84) 99 Room Air I & O 05/12/17 07:00 Intake Total 1962 ml Output Total 4450 ml Balance -2488 ml Capillary Refill : Less Than 3 SecondsLess Than 3 Seconds General Appearance: No Apparent Distress, WD/WN HEENT: PERRL/EOMI, Pharynx Normal Neck: Full Range of Motion, Supple Respiratory: Chest Non Tender, Lungs Clear, Normal Breath Sounds Cardiovascular: Regular Rate, Rhythm, No Edema Gastrointestinal: other (MINIMAL BOWEL WOUNDS, TTP IN RIGHT MID TO LOWER ABDOMEN AND BLISTER HAS PARTIALLY DECOMPRESSED, BRUISING AROUND UMBILICUS) Extremity: Normal Capillary Refill Neurologic/Psychiatric: Alert, Oriented x3, Normal Mood/Affect Skin: Warm/Dry Results Lab Laboratory Tests 05/12/17 05:48: White Blood Count 6.6, Red Blood Count 3.71L, Hemoglobin 10.4L, Hematocrit 32L, Mean Corpuscular Volume 87, Mean Corpuscular Hemoglobin 28, Mean Corpuscular Hemoglobin Concent 32, Red Cell Distribution Width 13.5, Platelet Count 326, Mean Platelet Volume 10.3, Sodium Level 138, Potassium Level 4.5, Chloride Level 104, Carbon Dioxide Level 23, Anion Gap 11, Blood Urea Nitrogen 3L, Creatinine 0.85, Estimat Glomerular Filtration Rate > 60, BUN/Creatinine Ratio 4 , Glucose Level 107H, Calcium Level 8.4L, Magnesium Level 1.7L, Total Bilirubin 0.3, Aspartate Amino Transf (AST/SGOT) 34, Alanine Aminotransferase (ALT/SGPT) 52, Alkaline Phosphatase 106, Total Protein 5.5L, Albumin 2.8L Microbiology 12/3/ Blood Culture - Preliminary, Resulted No growth 05/07/17 Urine Culture - Final, Complete Staph, Coag Neg (Revolving Field Assembler) Assessment/Plan Assessment/Plan Assess & Plan/Chief Complaint SMALL BOWEL OBSTRUCTION NAUSEA ABDOMINAL PAIN MESENTERIC VEIN THROMBOSIS POD #3 CHOLECYSTECTOMY TACHYCARDIA HYPOMAGNESEMIA HYPOKALEMIA SMALL BOWEL OBSTRUCTION - DEFER TO DR. MARION -SMALL BOWEL FOLLOW THROUGH SHOWED JEJUNAL OBSTRUCTION - ILEUS - PT HAD EMESIS X 2 AGAIN LAST NIGHT. DISCUSSED WITH SANAM YESTERDAY EVENING - WE ARE NOT PLANNING ON SURGERY AT THIS TIME - WILL WAIT TO SEE HOW SHE IS DOING ON MONDAY - HOPEFULLY WE WILL HAVE IMPROVEMENT IN HER GI SYMPTOMS. NAUSEA AND ABDOMINAL PAIN - CONCERN FOR POSSIBLE REACTION FROM LOVENOX - WILL WAIT TO SEE IF HER SMALL BOWEL OBSTRUCTION IMPROVING HELPS TO IMPROVE HER SYMPTOMS OF NAUSEA AND ABDOMINAL PAIN - IF NOT, THEN NEED TO CONSIDER THAT SHE IS PART OF THE 3% THAT HAVE NAUSEA DUE TO LOVENOX. MESENTERIC VEIN THROMBOSIS - CONTINUE WITH LOVENOX. POD #4 CHOLECYSTECTOMY TACHYCARDIA - MONITOR SYMPTOMS - KEEP BETA MILAGROS PRN IF HEART RATE IS AT OR ABOVE 120 HYPOMAGNESEMIA AND HYPOKALEMIA - REPLACE WITH IV FLUIDS. - CLINIMIX AND SMALL AMOUNT OF SALINE TO RUN IN FOR A TOTAL OF 150ML/HR Clinical Quality Measures DVT/VTE Risk/Contraindication: Risk Factor Score Per Nursin RFS Level Per Nursing on Admit: 2=Moderate JONATHAN SMITH MD May 12, 2017 08:58
[2017-05-12] MEDS: MAGNESIUM 1 GM/100 ML IVPB 100 ML IV SCH ×2 (09:24→10:26)
[2017-05-12] MEDS: D5 1/2 NS 1000 ML IV SOLUTION 1,000 ML IV SCH (11:12)
[2017-05-12 12:00] VITALS: BP 115/75
--- NOTE | 2017-05-12 12:53 | Progress Note (SOAP) ---
Subjective Date Seen by Provider: May 12, 2017 Time Seen by Provider: 12:30 Subjective/Events-last exam doing ok. still has intermittent nausea. 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 Objective Exam Vital Signs Date Time Temp Pulse Resp B/P (MAP) Pulse Ox O2 Delivery O2 Flow Rate FiO2 05/12/17 08:00 97.4 87 20 117/74 (88) 99 Room Air 05/12/17 04:00 97.8 85 18 120/61 (80) 98 Room Air 05/12/17 00:00 98.4 87 17 110/59 (76) 98 Room Air 05/11/17 20:30 Room Air 05/11/17 20:24 76 103/56 (72) 05/11/17 16:00 99.1 73 20 116/74 (88) 100 Room Air I & O 05/12/17 07:00 Intake Total 1962 ml Output Total 4450 ml Balance -2488 ml Capillary Refill : Less Than 3 SecondsLess Than 3 Seconds General Appearance: No Apparent Distress HEENT: PERRL/EOMI Neck: Full Range of Motion Respiratory: Chest Non Tender, Lungs Clear, Normal Breath Sounds Cardiovascular: Regular Rate, Rhythm Gastrointestinal: normal bowel sounds, soft Extremity: Normal Capillary Refill Neurologic/Psychiatric: Alert, Oriented x3 Skin: Normal Color Lymphatic: No Adenopathy Results Lab Laboratory Tests 05/12/17 05:48: White Blood Count 6.6, Red Blood Count 3.71L, Hemoglobin 10.4L, Hematocrit 32L, Mean Corpuscular Volume 87, Mean Corpuscular Hemoglobin 28, Mean Corpuscular Hemoglobin Concent 32, Red Cell Distribution Width 13.5, Platelet Count 326, Mean Platelet Volume 10.3, Sodium Level 138, Potassium Level 4.5, Chloride Level 104, Carbon Dioxide Level 23, Anion Gap 11, Blood Urea Nitrogen 3L, Creatinine 0.85, Estimat Glomerular Filtration Rate > 60, BUN/Creatinine Ratio 4 , Glucose Level 107H, Calcium Level 8.4L, Magnesium Level 1.7L, Total Bilirubin 0.3, Aspartate Amino Transf (AST/SGOT) 34, Alanine Aminotransferase (ALT/SGPT) 52, Alkaline Phosphatase 106, Total Protein 5.5L, Albumin 2.8L Microbiology 05/07/17 Blood Culture - Preliminary, Resulted No growth 05/07/17 Urine Culture - Final, Complete Staph, Coag Neg (Manufacturing Maintenance Technician) Assessment/Plan Assessment/Plan Assess & Plan/Chief Complaint doing better. will continue with conservative management for now. continue lovenox. clear liquid diet. CTS abd and pelvis with delayed venous phase shows continued thrombus SMV with recanulization distally. edema/stricture jejunum still apparent. will continue Heparin SQ for now. if does not progress by monday will proceed with dx laparoscopy. 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 dx laparoscopy and SB resection and anastomosis mon or mon. continue lovenox for now. Clinical Quality Measures DVT/VTE Risk/Contraindication: Risk Factor Score Per Nursin RFS Level Per Nursing on Admit: 2=Moderate PABLITO MARION MD May 12, 2017 12:53 pm
[2017-05-12 15:35] VITALS: BP 114/72
[2017-05-12] MEDS: METOCLOPRAMIDE INJ 10 MG/2 ML (REGLAN) IVP PRN (18:53)
[2017-05-12 19:51] VITALS: BP 106/72
[2017-05-13] VITALS: BP 124/81
[2017-05-13] MEDS: ONDANSETRON 4 MG/2 ML (SDV) Z0FRAN IV PRN ×5 (01:45→21:50)
[2017-05-13] MEDS: HYDROmorphone (DILAUDID) 2 MG/ML VIAL IV PRN ×6 (01:45→21:51)
[2017-05-13 04:00] VITALS: BP 113/76
[2017-05-13] MEDS: AA 4.25% W/LYTES IN D5W IV SOL 1,000 ML IV SCH ×2 (04:57→13:54)
[2017-05-13 05:04] LABS: MEAN PLATELET VOLUME 9.8 FL (7.4-10.4); RED BLOOD COUNT 3.99 10^6/uL (4.35-5.85); RED CELL DISTRIBUTION WIDTH 13.5 % (10.0-14.5); WHITE BLOOD COUNT 8.6 10^3/uL (4.3-11.0)
[2017-05-13 05:55] LABS: ANION GAP 10 MMOL/L (5-14); BLOOD UREA NITROGEN 12 MG/DL (7-18); BUN/CREATININE RATIO 14; CARBON DIOXIDE 26 MMOL/L (21-32); CHLORIDE 99 MMOL/L (98-107); CREATININE SERUM 0.85 MG/DL (0.60-1.30); GFR ESTIMATED > 60; GLUCOSE 106 MG/DL (70-105); POTASSIUM 4.7 MMOL/L (3.6-5.0); SODIUM 135 MMOL/L (135-145)
[2017-05-13] MEDS: D5 1/2 NS 1000 ML IV SOLUTION 1,000 ML IV SCH (06:27)
[2017-05-13] MEDS: PANTOPRAZOLE 40 MG (PROTONIX) TAB PO SCH ×2 (07:47→20:59)
[2017-05-13 08:00] VITALS: BP 109/66
[2017-05-13] MEDS: meTOprolol TARTRATE 25 MG (LOPRESSOR) TABLET PO SCH ×2 (08:04→20:59)
[2017-05-13] MEDS: ENOXAPARIN 80 MG/0.8 ML (LOVENOX) SYR SC SCH ×2 (08:50→20:59)
[2017-05-13] MEDS: METOCLOPRAMIDE INJ 10 MG/2 ML (REGLAN) IVP PRN (10:10)
--- NOTE | 2017-05-13 10:59 | Progress Note (SOAP) ---
Subjective Date Seen by Provider: May 13, 2017 Time Seen by Provider: 09:42 Subjective/Events-last exam reports metallic taste in her mouth. Slightly nauseous, passed flatus once Review of Systems General: Malaise HEENT: No Head Aches, No Eye Pain, No Ear Pain, No Dysphasia, No Sinus Congestion, No Post Nasal Drip, No Sore Throat Pulmonary: No Dyspnea, No Cough, No Pleuritic Chest Pain Cardiovascular: No: Chest Pain, Palpitations, Orthopnea, Paroxysmal Noc. Dyspnea, Edema, Lt Headedness Gastrointestinal: Nausea Genitourinary: No Dysuria, No Frequency, No Incontinence, No Hematuria, No Retention Musculoskeletal: No: other, neck pain, shoulder pain, arm pain, back pain, hand pain, leg pain, foot pain Neurological: No: Weakness, Numbness, Incoordination, Change in speech, Confusion, Seizures, Other Objective Exam Vital Signs Date Time Temp Pulse Resp B/P (MAP) Pulse Ox O2 Delivery O2 Flow Rate FiO2 05/13/17 08:00 97.4 83 20 109/66 (80) 97 Room Air 05/13/17 04:00 97.6 72 18 113/76 (88) 98 Room Air 05/13/17 00:00 98.0 107 18 124/81 (95) 98 Room Air 05/12/17 20:20 Room Air 05/12/17 19:51 98.9 90 20 106/72 (83) 99 Room Air 05/12/17 15:35 97.0 97 20 114/72 (86) 98 Room Air 05/12/17 12:00 98.3 84 20 115/75 (88) 98 Room Air I & O 05/13/17 06:59 Intake Total 2060 ml Output Total 3925 ml Balance -1865 ml Capillary Refill : Less Than 3 SecondsLess Than 3 Seconds General Appearance: No Apparent Distress HEENT: Normal ENT Inspection Neck: Normal Inspection Cardiovascular: Regular Rate, Rhythm Gastrointestinal: non tender, soft, other Extremity: Normal Inspection Neurologic/Psychiatric: Alert, Oriented x3 Skin: Warm/Dry Other comments laparoscopic incisions dry. No abdominal distention. Results Lab Laboratory Tests 05/13/17 04:45: White Blood Count 8.6, Red Blood Count 3.99L, Hemoglobin 11.2L, Hematocrit 35, Mean Corpuscular Volume 87, Mean Corpuscular Hemoglobin 28, Mean Corpuscular Hemoglobin Concent 33, Red Cell Distribution Width 13.5, Platelet Count 344, Mean Platelet Volume 9.8, Sodium Level 135, Potassium Level 4.7, Chloride Level 99, Carbon Dioxide Level 26, Anion Gap 10, Blood Urea Nitrogen 12, Creatinine 0.85, Estimat Glomerular Filtration Rate > 60, BUN/Creatinine Ratio 14, Glucose Level 106H, Calcium Level 9.0, Magnesium Level 2.0 Microbiology 05/07/17 Blood Culture - Preliminary, Resulted No growth 05/07/17 Urine Culture - Final, Complete Staph, Coag Neg (Company Controller) Assessment/Plan Assessment/Plan Assess & Plan/Chief 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 Small bowel obstruction, conservative therapy. We'll continue parental nutrition. 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
[2017-05-13 12:00] VITALS: BP 125/76
--- NOTE | 2017-05-13 12:43 | Progress Note-Hospitalist ---
Progress Note Progress Notes/Assess & Plan Date Seen 05/13/17 Time Seen by Provider: 11:30 Diagonsis/Assessment & Plan Pt doing about the same. Emesis x 2 today Walking around in halls a lot No bowel sounds noted on exam Checked meds and labs AFVSS, Pleasant, O x 3 RRR, CTAB no BS note, mild generalized ttp Laboratory Tests 05/13/17 04:45 Assessment: SMALL BOWEL OBSTRUCTION NAUSEA ABDOMINAL PAIN MESENTERIC VEIN THROMBOSIS POD #4 CHOLECYSTECTOMY TACHYCARDIA HYPOMAGNESEMIA HYPOKALEMIA Plan: Supportive care Ambulate ALEC FOSTER DO May 13, 2017 12:43
[2017-05-13] MEDS: CATHETER FLUSH 10 ML SYR IV PRN (13:45)
[2017-05-13 15:26] VITALS: BP 104/66
[2017-05-13 19:10] VITALS: BP 119/79
[2017-05-13] MEDS: SCOPOLAMINE 1.5 MG (TRANSDERM-SCOP) PATCH TOP SCH (20:59)
[2017-05-14] VITALS: BP 110/67
[2017-05-14] MEDS: D5 1/2 NS 1000 ML IV SOLUTION 1,000 ML IV SCH ×2 (01:04→20:52)
[2017-05-14] MEDS: AA 4.25% W/LYTES IN D5W IV SOL 1,000 ML IV SCH ×3 (01:04→20:52)
[2017-05-14] MEDS: ONDANSETRON 4 MG/2 ML (SDV) Z0FRAN IV PRN ×3 (02:09→18:11)
[2017-05-14] MEDS: HYDROmorphone (DILAUDID) 2 MG/ML VIAL IV PRN ×7 (02:09→20:28)
[2017-05-14 04:00] VITALS: BP 115/77
[2017-05-14 05:32] LABS: MEAN PLATELET VOLUME 10.5 FL (7.4-10.4); RED BLOOD COUNT 3.9 10^6/uL (4.35-5.85); RED CELL DISTRIBUTION WIDTH 13.5 % (10.0-14.5); WHITE BLOOD COUNT 8.2 10^3/uL (4.3-11.0)
[2017-05-14 06:08] LABS: ANION GAP 9 MMOL/L (5-14); BLOOD UREA NITROGEN 15 MG/DL (7-18); BUN/CREATININE RATIO 19; CALCIUM 8.6 MG/DL (8.5-10.1); CARBON DIOXIDE 26 MMOL/L (21-32); CHLORIDE 98 MMOL/L (98-107); CREATININE SERUM 0.77 MG/DL (0.60-1.30); GFR ESTIMATED > 60; GLUCOSE 111 MG/DL (70-105); MAGNESIUM 1.9 MG/DL (1.8-2.4); SODIUM 133 MMOL/L (135-145)
[2017-05-14] MEDS: METOCLOPRAMIDE INJ 10 MG/2 ML (REGLAN) IVP PRN ×2 (06:28→20:28)
[2017-05-14 08:00] VITALS: BP 110/67
[2017-05-14] MEDS: PANTOPRAZOLE 40 MG (PROTONIX) TAB PO SCH ×2 (08:33→20:14)
[2017-05-14] MEDS: ENOXAPARIN 80 MG/0.8 ML (LOVENOX) SYR SC SCH ×2 (08:34→20:15)
[2017-05-14] MEDS: meTOprolol TARTRATE 25 MG (LOPRESSOR) TABLET PO SCH ×2 (08:34→20:10)
--- NOTE | 2017-05-14 11:39 | Progress Note (SOAP) ---
Subjective Date Seen by Provider: May 14, 2017 Time Seen by Provider: 10:05 Subjective/Events-last exam continues to have emesis episodes. Passing flatus; very minimal abdominal pain. Review of Systems General: No Chills, No Night Sweats, No Fatigue, No Malaise HEENT: No Head Aches, No Eye Pain, No Ear Pain, No Dysphasia, No Sinus Congestion, No Post Nasal Drip, No Sore Throat Pulmonary: No Dyspnea, No Cough, No Pleuritic Chest Pain Cardiovascular: No: Chest Pain, Palpitations, Orthopnea, Paroxysmal Noc. Dyspnea, Edema, Lt Headedness Gastrointestinal: Nausea, Vomiting Genitourinary: No Dysuria, No Frequency, No Incontinence, No Hematuria, No Retention Musculoskeletal: No: other, neck pain, shoulder pain, arm pain, back pain, hand pain, leg pain, foot pain Neurological: No: Weakness, Numbness, Incoordination, Change in speech, Confusion, Seizures, Other Objective Exam Vital Signs Date Time Temp Pulse Resp B/P (MAP) Pulse Ox O2 Delivery O2 Flow Rate FiO2 05/14/17 08:00 98.6 78 16 110/67 (81) 96 Room Air 05/14/17 04:00 97.7 92 18 115/77 (90) 97 Room Air 05/14/17 00:00 96.0 87 18 110/67 (81) 97 Room Air 05/13/17 19:10 97.0 96 20 119/79 (92) 98 Room Air 05/13/17 15:26 96.7 83 16 104/66 (79) 98 Room Air 05/13/17 12:00 97.3 88 18 125/76 (92) 98 Room Air I & O 05/14/17 07:00 Intake Total 1500 ml Output Total 1550 ml Balance -50 ml Capillary Refill : Less Than 3 SecondsLess Than 3 Seconds General Appearance: No Apparent Distress HEENT: Normal ENT Inspection Neck: Normal Inspection Cardiovascular: Regular Rate, Rhythm Gastrointestinal: non tender, soft Extremity: Normal Inspection Neurologic/Psychiatric: Alert, Oriented x3 Skin: Warm/Dry Results Lab Laboratory Tests 05/14/17 05:10: White Blood Count 8.2, Red Blood Count 3.90L, Hemoglobin 10.8L, Hematocrit 34L, Mean Corpuscular Volume 86, Mean Corpuscular Hemoglobin 28, Mean Corpuscular Hemoglobin Concent 32, Red Cell Distribution Width 13.5, Platelet Count 325, Mean Platelet Volume 10.5H, Sodium Level 133L, Potassium Level 5.0, Chloride Level 98, Carbon Dioxide Level 26, Anion Gap 9, Blood Urea Nitrogen 15, Creatinine 0.77, Estimat Glomerular Filtration Rate > 60, BUN/Creatinine Ratio 19, Glucose Level 111H, Calcium Level 8.6, Magnesium Level 1.9 Microbiology 05/07/17 Blood Culture - Final, Complete No growth 05/07/17 Urine Culture - Final, Complete Staph, Coag Neg (Lawn Mower Sharpener) Assessment/Plan Assessment/Plan Assess & Plan/Chief 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 Small bowel obstruction, conservative therapy. We'll continue parental nutrition. symptoms grossly unchanged. May require exploration Final Diagnosis superior mesenteric venous thrombosis. Small bowel obstruction Clinical Quality Measures DVT/VTE Risk/Contraindication: Risk Factor Score Per Nursin RFS Level Per Nursing on Admit: 2=Moderate ELIGIO PATINO MD May 14, 2017 11:39 am
--- NOTE | 2017-05-14 11:44 | Progress Note-Hospitalist ---
Progress Note Progress Notes/Assess & Plan Date Seen 05/14/17 Time Seen by Provider: 10:45 Diagonsis/Assessment & Plan Pt doing about the same. Emesis x 2 today Walking around in halls a lot No bowel sounds noted on exam Checked meds and labs Did have some itching and requested Benadryl AFVSS, Pleasant, O x 3 RRR, CTAB no BS note, mild generalized ttp Laboratory Tests 05/14/17 05:10 Assessment: SMALL BOWEL OBSTRUCTION NAUSEA ABDOMINAL PAIN MESENTERIC VEIN THROMBOSIS POD #5 CHOLECYSTECTOMY TACHYCARDIA HYPOMAGNESEMIA HYPOKALEMIA Non-specific itching ordered Benadryl at her request Plan: Supportive care Ambulate ALEC FOSTER DO May 14, 2017 11:44
[2017-05-14 12:00] VITALS: BP 115/68
[2017-05-14] MEDS: diphenhydrAMINE 25 MG TAB (BENADRYL) PO PRN (15:39)
[2017-05-14 15:43] VITALS: BP 124/71
[2017-05-14 19:43] VITALS: BP 118/78
[2017-05-15] VITALS: BP 110/76
[2017-05-15] MEDS: ONDANSETRON 4 MG/2 ML (SDV) Z0FRAN IV PRN ×4 (00:14→14:25)
[2017-05-15] MEDS: HYDROmorphone (DILAUDID) 2 MG/ML VIAL IV PRN ×8 (00:15→23:39)
[2017-05-15] MEDS: METOCLOPRAMIDE INJ 10 MG/2 ML (REGLAN) IVP PRN (03:57)
[2017-05-15 04:00] VITALS: BP 110/76
[2017-05-15 06:17] LABS: MEAN PLATELET VOLUME 10.6 FL (7.4-10.4); RED BLOOD COUNT 3.92 10^6/uL (4.35-5.85); RED CELL DISTRIBUTION WIDTH 13.5 % (10.0-14.5); WHITE BLOOD COUNT 8.2 10^3/uL (4.3-11.0)
[2017-05-15] MEDS: AA 4.25% W/LYTES IN D5W IV SOL 1,000 ML IV SCH ×2 (06:29→17:43)
[2017-05-15 06:32] LABS: ANION GAP 9 MMOL/L (5-14); BLOOD UREA NITROGEN 16 MG/DL (7-18); BUN/CREATININE RATIO 21; CALCIUM 8.7 MG/DL (8.5-10.1); CARBON DIOXIDE 25 MMOL/L (21-32); CHLORIDE 97 MMOL/L (98-107); CREATININE SERUM 0.77 MG/DL (0.60-1.30); GFR ESTIMATED > 60; GLUCOSE 123 MG/DL (70-105); MAGNESIUM 1.8 MG/DL (1.8-2.4); POTASSIUM 4.5 MMOL/L (3.6-5.0); SODIUM 131 MMOL/L (135-145)
[2017-05-15 08:00] VITALS: BP 108/70
[2017-05-15] MEDS: PANTOPRAZOLE 40 MG (PROTONIX) TAB PO SCH ×2 (08:37→20:10)
[2017-05-15] MEDS: ENOXAPARIN 80 MG/0.8 ML (LOVENOX) SYR SC SCH (08:37)
--- NOTE | 2017-05-15 08:46 | Progress Note (SOAP) ---
Subjective Date Seen by Provider: May 15, 2017 Time Seen by Provider: 08:45 Subjective/Events-last exam PT REPORTS THAT SHE HAS NOT HAD BOWEL MOVEMENT, HAS NOT PASSED GAS AND CONTINUES TO HAVE ABDOMINAL PAIN WITH INTERMITTENT NAUSEA. Review of Systems General: No Chills, Fatigue HEENT: No Head Aches Pulmonary: No Dyspnea, No Cough Cardiovascular: No: Chest Pain, Palpitations Gastrointestinal: Nausea, Abdominal Pain Genitourinary: No Dysuria Neurological: Weakness Objective Exam Vital Signs Date Time Temp Pulse Resp B/P (MAP) Pulse Ox O2 Delivery O2 Flow Rate FiO2 05/15/17 04:00 97.7 80 16 110/76 (87) 98 Room Air 05/15/17 00:00 97.7 80 16 110/76 (87) 98 Room Air 05/14/17 19:43 97.8 87 20 118/78 (91) 100 Room Air 05/14/17 15:43 98.0 87 20 124/71 (88) 98 Room Air 05/14/17 12:00 97.7 71 18 115/68 (84) 98 Room Air I & O 05/15/17 07:00 Intake Total 4300 ml Output Total 3180 ml Balance 1120 ml Capillary Refill : Less Than 3 SecondsLess Than 3 Seconds General Appearance: No Apparent Distress, WD/WN HEENT: PERRL/EOMI, Pharynx Normal Neck: Full Range of Motion, Supple Respiratory: Chest Non Tender, Lungs Clear, Normal Breath Sounds Cardiovascular: Regular Rate, Rhythm Gastrointestinal: tenderness (DIFFUSELY - MINIMAL TO NO BOWEL SOUNDS) Extremity: No Pedal Edema Neurologic/Psychiatric: Alert, Oriented x3, No Motor/Sensory Deficits, Normal Mood/Affect Skin: Warm/Dry Results Lab Laboratory Tests 05/15/17 06:00: White Blood Count 8.2, Red Blood Count 3.92L, Hemoglobin 11.0L, Hematocrit 34L, Mean Corpuscular Volume 86, Mean Corpuscular Hemoglobin 28, Mean Corpuscular Hemoglobin Concent 33, Red Cell Distribution Width 13.5, Platelet Count 299, Mean Platelet Volume 10.6H, Sodium Level 131L, Potassium Level 4.5, Chloride Level 97L, Carbon Dioxide Level 25, Anion Gap 9, Blood Urea Nitrogen 16, Creatinine 0.77, Estimat Glomerular Filtration Rate > 60, BUN/Creatinine Ratio 21, Glucose Level 123H, Calcium Level 8.7, Magnesium Level 1.8 Microbiology 05/07/17 Blood Culture - Final, Complete No growth 05/07/17 Urine Culture - Final, Complete Staph, Coag Neg (Credit Officer) Assessment/Plan Assessment/Plan Assess & Plan/Chief Complaint SMALL BOWEL OBSTRUCTION NAUSEA ABDOMINAL PAIN MESENTERIC VEIN THROMBOSIS POD #3 CHOLECYSTECTOMY TACHYCARDIA HYPOMAGNESEMIA HYPOKALEMIA SMALL BOWEL OBSTRUCTION - DEFER TO DR. MARION -SMALL BOWEL FOLLOW THROUGH SHOWED JEJUNAL OBSTRUCTION - ILEUS -NO IMPROVEMENT IN GI SYMPTOMS - DISCUSSED WITH DR. MARION - HE WILL PLAN ON SURGERY TOMORROW. MESENTERIC VEIN THROMBOSIS - CONTINUE WITH LOVENOX. TACHYCARDIA - MONITOR SYMPTOMS - KEEP BETA MILAGROS PRN IF HEART RATE IS AT OR ABOVE 120 HYPOMAGNESEMIA AND HYPOKALEMIA - REPLACE WITH IV FLUIDS. - CLINIMIX AND SMALL AMOUNT OF SALINE TO RUN IN FOR A TOTAL OF 150ML/HR Clinical Quality Measures DVT/VTE Risk/Contraindication: Risk Factor Score Per Nursin RFS Level Per Nursing on Admit: 2=Moderate JONATHAN SMITH MD May 15, 2017 08:45
[2017-05-15] MEDS: meTOprolol TARTRATE 25 MG (LOPRESSOR) TABLET PO SCH ×2 (09:00→20:15)
[2017-05-15] MEDS: D5 NS 1000 ML IV SOLUTION 1,000 ML IV SCH (09:59)
[2017-05-15 12:00] VITALS: BP 111/64
[2017-05-15 16:00] VITALS: BP 128/79
--- NOTE | 2017-05-15 18:33 | Progress Note (SOAP) ---
Subjective Date Seen by Provider: May 15, 2017 Time Seen by Provider: 18:20 Subjective/Events-last exam still having vomiting daily and minimal BM. no progress. 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 Objective Exam Vital Signs Date Time Temp Pulse Resp B/P (MAP) Pulse Ox O2 Delivery O2 Flow Rate FiO2 05/15/17 16:00 98.6 69 20 128/79 (95) 100 Room Air 05/15/17 12:00 97.7 85 20 111/64 (80) 98 Room Air 05/15/17 08:00 97.8 85 16 108/70 (83) 97 Room Air 05/15/17 04:00 97.7 80 16 110/76 (87) 98 Room Air 05/15/17 00:00 97.7 80 16 110/76 (87) 98 Room Air 05/14/17 19:43 97.8 87 20 118/78 (91) 100 Room Air I & O 05/15/17 07:00 Intake Total 4300 ml Output Total 3180 ml Balance 1120 ml Capillary Refill : Less Than 3 SecondsLess Than 3 Seconds General Appearance: No Apparent Distress HEENT: PERRL/EOMI Neck: Full Range of Motion Respiratory: Chest Non Tender, Lungs Clear, Normal Breath Sounds Cardiovascular: Regular Rate, Rhythm Gastrointestinal: non tender, soft Extremity: Normal Capillary Refill Neurologic/Psychiatric: Alert, Oriented x3 Skin: Normal Color Lymphatic: No Adenopathy Results Lab Laboratory Tests 05/15/17 06:00: White Blood Count 8.2, Red Blood Count 3.92L, Hemoglobin 11.0L, Hematocrit 34L, Mean Corpuscular Volume 86, Mean Corpuscular Hemoglobin 28, Mean Corpuscular Hemoglobin Concent 33, Red Cell Distribution Width 13.5, Platelet Count 299, Mean Platelet Volume 10.6H, Sodium Level 131L, Potassium Level 4.5, Chloride Level 97L, Carbon Dioxide Level 25, Anion Gap 9, Blood Urea Nitrogen 16, Creatinine 0.77, Estimat Glomerular Filtration Rate > 60, BUN/Creatinine Ratio 21, Glucose Level 123H, Calcium Level 8.7, Magnesium Level 1.8 Microbiology 05/07/17 Blood Culture - Final, Complete No growth 05/07/17 Urine Culture - Final, Complete Staph, Coag Neg (Plastic Eye Technician) Assessment/Plan Assessment/Plan Assess & Plan/Chief 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 no progress. CTS abd and pelvis with delayed venous phase shows continued thrombus SMV with recanulization distally. edema/stricture jejunum still apparent. will continue Heparin SQ for now. if does not progress by monday will proceed with dx laparoscopy. 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 dx laparoscopy and SB resection and anastomosis tomorrow. holding todays PM lovenox dose. Clinical Quality Measures DVT/VTE Risk/Contraindication: Risk Factor Score Per Nursin RFS Level Per Nursing on Admit: 2=Moderate PABLITO MARION MD May 15, 2017 6:33 pm
[2017-05-15 20:00] VITALS: BP 127/82
[2017-05-16] VITALS: BP 125/72
[2017-05-16] MEDS: ONDANSETRON 4 MG/2 ML (SDV) Z0FRAN IV PRN ×2 (03:28→07:39)
[2017-05-16] MEDS: HYDROmorphone (DILAUDID) 2 MG/ML VIAL IV PRN ×5 (03:30→17:31)
[2017-05-16] MEDS: D5 NS 1000 ML IV SOLUTION 1,000 ML IV SCH (03:32)
[2017-05-16] MEDS: AA 4.25% W/LYTES IN D5W IV SOL 1,000 ML IV SCH ×2 (03:32→23:12)
[2017-05-16] MEDS: diphenhydrAMINE 25 MG TAB (BENADRYL) PO PRN (03:45)
[2017-05-16 04:00] VITALS: BP 123/76
[2017-05-16 08:00] VITALS: BP 119/70
[2017-05-16] MEDS: meTOprolol TARTRATE 25 MG (LOPRESSOR) TABLET PO SCH ×2 (09:01→21:14)
[2017-05-16] MEDS: METOCLOPRAMIDE INJ 10 MG/2 ML (REGLAN) IVP PRN (09:24)
[2017-05-16] MEDS: PANTOPRAZOLE 40 MG (PROTONIX) TAB PO SCH ×2 (09:57→21:15)
[2017-05-16 12:00] VITALS: BP 122/69
--- NOTE | 2017-05-16 13:22 | Progress Note-Pre Operative ---
Pre-Operative Progress Note H&P Reviewed The H&P was reviewed, patient examined and no changes noted. Date Seen by Provider: May 16, 2017 Time Seen by Provider: 13:20 Date H&P Reviewed: May 16, 2017 Time H&P Reviewed: 13:10 Pre-Operative Diagnosis: Small Bowel Obstruction LAURA BARTON APRN May 16, 2017 1:22 pm
[2017-05-16] MEDS ORDERED: ROCURONIUM 50 MG/5 ML (ZEMURON) VIAL IV ONE (13:25)
[2017-05-16] MEDS ORDERED: SEVOFLURANE (ULTANE) 15 ML INHAL SOLN ONE ×7 (13:25→15:20)
[2017-05-16] MEDS ORDERED: ONDANSETRON 4 MG/2 ML (SDV) Z0FRAN ONE ×2 (13:25→14:00)
[2017-05-16] MEDS ORDERED: DEXAMETHASONE 10 MG/ML (DECADRON) 1 ML VIAL ONE (13:25)
[2017-05-16] MEDS ORDERED: LIDOCAINE PF 2% 5 ML (XYLOCAINE) VIAL ONE (13:25)
[2017-05-16] MEDS ORDERED: proPOfol 200 MG/20 ML (DIPRIVAN) VIAL IV ONE (13:25)
[2017-05-16] MEDS ORDERED: fentaNYL INJECTION 100 MCG/2 ML AMP ONE ×2 (13:26→14:29)
[2017-05-16] MEDS ORDERED: MIDAZOLAM 2 MG/2 ML (VERSED) VIAL ONE (13:26)
[2017-05-16] MEDS ORDERED: BUP/EPI 0.5% 1:200,000 (MARCAINE) 10ML VIAL IJ ONE (13:31)
[2017-05-16] MEDS: LACTATED RINGERS 1,000 ML IV PRN ×3 (13:46→15:29)
[2017-05-16] MEDS ORDERED: ceFAZolin 1,000 MG (ANCEF) VIAL ONE (13:57)
[2017-05-16] MEDS ORDERED: LACTATED RINGERS 1,000 ML IV PRN (13:57)
[2017-05-16] MEDS ORDERED: ceFAZolin INJECTION 1,000 MG in NS (IVPB) 50 ML IV ONE (14:00)
[2017-05-16] MEDS ORDERED: metroNIDAZOLE 500MG/100ML IVPB 100 ML IV ONE (15:15)
[2017-05-16] MEDS ORDERED: morphine INJ 10 MG/ML 1ML (SYR OR VIAL) ONE (15:18)
[2017-05-16] MEDS ORDERED: NEOSTIGMINE (BLOXIVERZ ) 1 MG/1ML 10 ML VIAL ONE (15:31)
[2017-05-16] MEDS ORDERED: GLYCOPYRROLATE 0.2 MG/ML (ROBINUL) 2 ML VIAL ONE (15:31)
--- NOTE | 2017-05-16 15:54 | Progress Note-Post Operative ---
Post-Operative Progess Note Surgeon (s)/Dump Truck Driver (s) Surgeon PABLITO MARION MD Dump Truck Driver: adithya cottrell TOBACCO CUTTER Pre-Operative Diagnosis Small Bowel Obstruction Post-Operative Diagnosis jejunal obstruction secondary stricture. Procedure & Operative Findings Date of Procedure 05/16/17 Procedure Performed/Findings diagnostic laparoscopy and small resection with anastomosis. Anesthesia Type GET Estimated Blood Loss Estimated blood loss (mL): 50ml Specimens/Packing Specimens Removed segmental jejunum PABLITO MARION MD May 16, 2017 15:54
[2017-05-16] MEDS ORDERED: oxyCODONE/APAP 10/325MG (PERCOCET 10) TABLET PO PRN (16:00)
[2017-05-16] MEDS: morphine INJ 10 MG/ML 1ML (SYR OR VIAL) IVP PRN ×2 (16:24→16:31)
[2017-05-16] MEDS ORDERED: HYDROmorphone (DILAUDID) 2 MG/ML VIAL IVP PRN (16:30)
[2017-05-16] MEDS ORDERED: ONDANSETRON 4 MG/2 ML (SDV) Z0FRAN IVP PRN (16:30)
[2017-05-16 17:24] VITALS: BP 130/89
[2017-05-16] MEDS: HYDROmorphone (DILAUDID) 2 MG/ML VIAL IVP PRN ×5 (19:19→23:12)
[2017-05-16 19:20] VITALS: BP 135/87
[2017-05-16] MEDS: SCOPOLAMINE 1.5 MG (TRANSDERM-SCOP) PATCH TOP SCH (20:23)
[2017-05-16] MEDS: CIPROFLOXACIN IV 400MG/200ML 200 ML IV SCH (20:23)
[2017-05-16] MEDS: metroNIDAZOLE 500MG/100ML IVPB 100 ML IV SCH (21:47)
--- NOTE | 2017-05-16 23:02 | OPERATIVE REPORT ---
DATE OF SERVICE: 05/16/2017 ATTENDING AND PRIMARY CARE PHYSICIAN: Sarah Snider M.D. PREOPERATIVE DIAGNOSIS: Small-bowel obstruction. POSTOPERATIVE DIAGNOSIS: Jejunal small-bowel obstruction secondary to a stricture. PROCEDURE: Diagnostic laparoscopy, laparoscopic small bowel resection and anastomosis. SURGEON: Saroj Lilly M.D. FEED MIXER HELPER: Walter Dahl APRN. ANESTHESIA: General endotracheal. ESTIMATED BLOOD LOSS: 50 mL. 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 Once this area was resected and examined there were no masses. The remainder of the small bowel, stomach, liver appeared normal. DISPOSITION: The patient tolerated the procedure well. The patient is a 27-year-old female known to us. She was initially seen on 10/15/2016 for reflux type of symptoms and underwent an EGD with findings reflux esophagitis, small hiatal hernia as well as the gastritis. She was admitted for severe abdominal pain, distention and nausea, vomiting on 04/03/2017 and found to have the superior mesenteric vein thrombosis and underwent medical therapy. She continued to have symptoms and was transferred to [facility] and was continued on conservative therapy with anticoagulation with Lovenox on a b.i.d. basis. She had improved over the time and was discharged home and states that she felt well for approximately 1 week; however, had reoccurrence of nausea and vomiting. An ultrasound was performed which did show contracted and thickened gallbladder consistent with chronic cholecystitis. 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 An EGD showed reflux esophagitis class B, small hiatal hernia 1.5 cm in size as well as mild gastritis; however, no distal obstructions of the duodenum. She was noted to have retained food substance within the stomach even after being n.p.o. after 24 hours, which was abnormal. She was admitted and again placed on conservative therapy with IV Lovenox and IV fluids. She continued to wax and wane with episodes of feeling as well as nausea and vomiting usually in the morning as well as later in the day. She states that after having an episode of emesis. She would feel considerably better. A CT scan was performed which did show distention of the proximal jejunum as well as the transition point and collapsed small bowel distal to this area. Again, we continued with conservative management with Lovenox 100 mg subcutaneous b.i.d. Her vital signs remained stable and her white count was normal throughout the whole hospital stay. She continued to have these episodes and continued to be symptomatic despite maximal medical therapy. Another CT scan was performed with a 5 minute delayed venous phase, which did show the superior mesenteric vein thrombosis; however, distal recannulization. The proximal jejunal obstruction was again identified and considered high-grade. DESCRIPTION OF PROCEDURE: The patient was brought to the operating room, laid supine on the table. After adequate IV pain and sedating medications and general endotracheal intubation, the abdomen was prepped and draped in standard surgical fashion. 0.5% Marcaine with epinephrine was then used to anesthetize the overlying skin in the left mid lateral abdomen. An 0 silk suture was applied to the medial aspect of the incision for retraction and a small skin incision made using a 15 blade and the Veress needle inserted with a low opening pressure of 0 mmHg pressure. The abdomen was then insufflated to 15 mmHg pressure. The Veress needle removed and a 5 mm Xcel trocar placed followed by a 5 mm 45-degree angle laparoscope visualizing the peritoneal cavity. A four quadrant abdominal x-ray was performed. There was dilated stomach, jejunum as well as collapsed small bowel distally. Under direct visualization, we then proceed to place an infraumbilical 10 mm port after the skin and peritoneum were anesthetized using 0.5% Marcaine with epinephrine and a transverse skin incision made using 15 blade. Using one of the previous right upper abdominal quadrant 5 mm port incisions over laparoscopic cholecystectomy we placed a 5 mm port. The patient was then placed in Trendelenburg position. The omentum and colon were then retracted anteriorly and superiorly over the liver. We then proceeded with identifying the ligament of Treitz with a distended jejunum identified. The jejunum was then followed distally to approximately 20 cm where a scarred down segment of jejunum was identified encompassing omentum and mesentery. All of the small bowel distal to this was collapsed. All of the bowel looked viable from an arterial standpoint. We then proceeded with dissection of the mesentery freeing up the adhesive bands connecting the jejunum. This was done using Sonicision. We then continued to proceed with dissection of the mesentery using the Sonicision. This was close to the small bowel. Once enough length was identified proximally and distally to the area of stricture and the stricture was completely free, the skin incision to the left lateral 5 mm port was extended laterally under direct visualization. The area was examined and palpated with no masses identified within the area of the stricture. Our working theory is that the superior mesenteric vein thrombosis caused acute venous congestion of the jejunum, which was followed by edema which was significant enough to cause small vessel arteriole insufficiency in resulting in a stricture. The area of stricture was then resected using ILEANA 55 mm blue load debbie. We then proceeded with the [id number] anastomosis using a ILEANA 55 mm blue load staple. The diana was approximated using 3-0 silk seromuscular interrupted sutures. The small bowel enterotomy was then reapproximated using several 3-0 silk interrupted sutures and this was stapled using the same 45 mm blue load debbie. A few seromuscular sutures were placed over the staple line. Good hemostasis was observed. The anastomosis was widely patent. The small bowel was then reduced back into the abdomen. A 19-Australian Jake-Perry drain was placed near the area of the anastomosis. The fascia and peritoneum to the incision were then closed using #1 loop PDS suture. The 10 mm port site fascia was then closed using interrupted [id number] suture. All skin incisions were closed using 4-0 Monocryl running subcuticular sutures. Wounds were then cleaned with Dermabond. The patient tolerated the procedure well. We will admit her back to the floor and start IV fluids as well as IV pain and antinausea medications. Once she does show bowel function, we will start a clear liquid diet and advance as tolerated. We also removed the Wylie catheter tomorrow morning. We will also proceed with DVT prophylaxis with early and calf SCDs early ambulation as well as Lovenox 100 mg subcutaneous b.i.d. Job ID: [id number] DocumentID: [id number] Dictated Date: 05/16/2017 16:09:52 Engine Service Repairer Date: 05/16/2017 23:02:00 Dictated By: MD MAE CARIAS
[2017-05-17] VITALS: BP 139/84
[2017-05-17] MEDS: HYDROmorphone (DILAUDID) 2 MG/ML VIAL IVP PRN ×5 (00:58→08:49)
[2017-05-17] MEDS: ONDANSETRON 4 MG/2 ML (SDV) Z0FRAN IV PRN ×2 (01:03→08:53)
[2017-05-17] MEDS: D5 NS 1000 ML IV SOLUTION 1,000 ML IV SCH (03:16)
[2017-05-17 04:07] VITALS: BP 122/70
[2017-05-17 08:30] VITALS: BP 150/91
[2017-05-17] MEDS: metroNIDAZOLE 500MG/100ML IVPB 100 ML IV SCH ×2 (08:49→20:34)
--- NOTE | 2017-05-17 09:08 | Progress Note (SOAP) ---
Subjective Date Seen by Provider: May 17, 2017 Time Seen by Provider: 09:00 Subjective/Events-last exam PT REPORTS THAT SHE IS IN QUITE A BIT OF PAIN IN HER ABDOMEN - SHE DOES NOT FEEL LIKE HER SYMPTOMS ARE CONTROLLED. SHE STATES THAT SHE IS NAUSEATED. Review of Systems General: No Chills, Fatigue, Malaise HEENT: No Head Aches Pulmonary: No Dyspnea, No Cough Cardiovascular: No: Chest Pain, Palpitations Gastrointestinal: Nausea, Abdominal Pain Neurological: Weakness Objective Exam Vital Signs Date Time Temp Pulse Resp B/P (MAP) Pulse Ox O2 Delivery O2 Flow Rate FiO2 05/17/17 04:07 99.2 117 19 122/70 (87) 93 Room Air 05/17/17 00:00 98.5 122 18 139/84 (102) 98 Nasal Cannula 2.00 05/16/17 19:20 99.9 131 20 135/87 (103) 97 Nasal Cannula 2.00 05/16/17 17:24 98.3 136 16 130/89 (103) 98 Nasal Cannula 2.00 05/16/17 12:00 97.5 89 24 122/69 (86) 98 Room Air I & O 05/17/17 07:00 Intake Total 4450 ml Output Total 2050 ml Balance 2400 ml Capillary Refill : Less Than 3 SecondsLess Than 3 Seconds General Appearance: WD/WN, Moderate Distress (DUE TO PAIN) HEENT: PERRL/EOMI Neck: Supple Respiratory: Chest Non Tender, Lungs Clear, Normal Breath Sounds Cardiovascular: Tachycardia Gastrointestinal: tenderness, other (MINIMAL BOWEL SOUNDS) Extremity: No Pedal Edema Neurologic/Psychiatric: Alert, Oriented x3, No Motor/Sensory Deficits, Normal Mood/Affect Skin: Warm/Dry Results Lab Microbiology 05/07/17 Blood Culture - Final, Complete No growth 05/07/17 Urine Culture - Final, Complete Staph, Coag Neg (Room Cooler Installer) Assessment/Plan Assessment/Plan Assess & Plan/Chief Complaint SMALL BOWEL OBSTRUCTION NAUSEA ABDOMINAL PAIN MESENTERIC VEIN THROMBOSIS TACHYCARDIA HYPOMAGNESEMIA HYPOKALEMIA SMALL BOWEL OBSTRUCTION - DEFER TO DR. MARION -SMALL BOWEL FOLLOW THROUGH SHOWED JEJUNAL OBSTRUCTION - PT IS POST-OP PARTIAL SMALL BOWEL RESECTION - SEE DR. MARION 'S REPORT FOR FULL DETAILS. ABDOMINAL PAIN - PT ON DILAUDID BRAKE LININGS COATER MESENTERIC VEIN THROMBOSIS - CONTINUE WITH LOVENOX. TACHYCARDIA - MONITOR SYMPTOMS - KEEP BETA MILAGROS PRN IF HEART RATE IS AT OR ABOVE 120 HYPOMAGNESEMIA AND HYPOKALEMIA - REPLACE WITH IV FLUIDS. -CONTINUE WITH IV FLUIDS AND REPLENISH NEEDED. Clinical Quality Measures DVT/VTE Risk/Contraindication: Risk Factor Score Per Nursin RFS Level Per Nursing on Admit: 2=Moderate JONATHAN SMITH MD May 17, 2017 09:08
[2017-05-17] MEDS ORDERED: NS IV 1000 ML 1,000 ML IV SCH (09:19)
[2017-05-17] MEDS: PANTOPRAZOLE 40 MG (PROTONIX) TAB PO SCH ×2 (09:23→20:34)
[2017-05-17] MEDS ORDERED: HYDROmorphone (DILAUDID) 2 MG/ML VIAL IVP STA (09:25)
[2017-05-17] MEDS ORDERED: NALOXONE 0.4 MG/ML 1 ML (NARCAN) VIAL IV PRN (09:30)
[2017-05-17 09:50] LABS: BASOPHILS % (AUTO) 0 % (0-10); EOSINOPHILS % (AUTO) 0 % (0-10); LYMPHOCYTES # (AUTO) 4.1 X 10^3 (1.0-4.0); LYMPHOCYTES % (AUTO) 29 % (12-44); MEAN CORPUSCULAR HEMOGLOBIN 28 PG (25-34); MEAN CORPUSCULAR HGB CONC 32 G/DL (32-36); MEAN CORPUSCULAR VOLUME 86 FL (80-99); MEAN PLATELET VOLUME 10.2 FL (7.4-10.4); MONOCYTES # (AUTO) 1.5 X 10^3 (0.0-1.0); MONOCYTES % (AUTO) 11 % (0-12); NEUTROPHILS # (AUTO) 8.6 X 10^3 (1.8-7.8); NEUTROPHILS % (AUTO) 61 % (42-75); PLATELET COUNT 286 10^3/uL (130-400); RED CELL DISTRIBUTION WIDTH 13.7 % (10.0-14.5); WHITE BLOOD COUNT 14.3 10^3/uL (4.3-11.0)
[2017-05-17] MEDS: meTOprolol TARTRATE 25 MG (LOPRESSOR) TABLET PO SCH ×2 (09:55→21:44)
[2017-05-17] MEDS: CIPROFLOXACIN IV 400MG/200ML 200 ML IV SCH ×2 (09:55→21:44)
[2017-05-17 10:09] LABS: BAND NEUTROPHILS 4 %; BASOPHILS % (MANUAL) 0 %; EOSINOPHILS % (MANUAL) 0 %; LYMPHOCYTES % (MANUAL) 24 %; MICROCYTOSIS SLIGHT; NEUTROPHILS % (MANUAL) 67 %
[2017-05-17] MEDS ORDERED: HYDROmorphone (DILAUDID) 2 MG/ML VIAL IVP NR (10:12)
[2017-05-17] MEDS: ENOXAPARIN 80 MG/0.8 ML (LOVENOX) SYR SC SCH ×2 (10:46→20:34)
[2017-05-17] MEDS: HYDROmorphone PCA 0.2 MG/ML 30 ML (DILAUDID) IV PRN ×3 (10:59→21:46)
[2017-05-17 12:00] VITALS: BP 140/77
--- NOTE | 2017-05-17 12:10 | Progress Note (SOAP) ---
Subjective Date Seen by Provider: May 17, 2017 Time Seen by Provider: 12:00 Subjective/Events-last exam doing better with pain control since AUTOMOBILE CONTRACT CLERK started. minimal NGT output. no BM or flatus yet. no fever/chills, afebrile. Objective Exam Vital Signs Date Time Temp Pulse Resp B/P (MAP) Pulse Ox O2 Delivery O2 Flow Rate FiO2 05/17/17 10:59 14 05/17/17 09:59 94 Room Air 05/17/17 08:50 Room Air 05/17/17 08:30 99.5 119 18 150/91 (110) 99 Room Air 05/17/17 04:07 99.2 117 19 122/70 (87) 93 Room Air 05/17/17 00:00 98.5 122 18 139/84 (102) 98 Nasal Cannula 2.00 05/16/17 19:20 99.9 131 20 135/87 (103) 97 Nasal Cannula 2.00 05/16/17 17:24 98.3 136 16 130/89 (103) 98 Nasal Cannula 2.00 I & O 05/17/17 07:00 Intake Total 4450 ml Output Total 2050 ml Balance 2400 ml Capillary Refill : Less Than 3 SecondsLess Than 3 Seconds General Appearance: No Apparent Distress HEENT: PERRL/EOMI Neck: Full Range of Motion Respiratory: Chest Non Tender, Lungs Clear, Normal Breath Sounds Cardiovascular: Regular Rate, Rhythm Gastrointestinal: soft, tenderness, other (incisions clean/dry) Extremity: Normal Capillary Refill Neurologic/Psychiatric: Alert, Oriented x3 Skin: Normal Color Lymphatic: No Adenopathy Results Lab Laboratory Tests 05/17/17 09:42: White Blood Count 14.3H, Red Blood Count 3.50L, Hemoglobin 9.7L, Hematocrit 30L , Mean Corpuscular Volume 86, Mean Corpuscular Hemoglobin 28, Mean Corpuscular Hemoglobin Concent 32, Red Cell Distribution Width 13.7, Platelet Count 286, Mean Platelet Volume 10.2, Neutrophils (%) (Auto) 61, Lymphocytes (%) (Auto) 29 , Monocytes (%) (Auto) 11, Eosinophils (%) (Auto) 0, Basophils (%) (Auto) 0, Neutrophils # (Auto) 8.6H, Lymphocytes # (Auto) 4.1H, Monocytes # (Auto) 1.5H, Eosinophils # (Auto) 0.0, Basophils # (Auto) 0.0, Neutrophils % (Manual) 67, Lymphocytes % (Manual) 24, Monocytes % (Manual) 5, Eosinophils % (Manual) 0, Basophils % (Manual) 0, Band Neutrophils 4, Microcytosis SLIGHT, Magnesium Level 1.5L Microbiology 05/07/17 Blood Culture - Final, Complete No growth 05/07/17 Urine Culture - Final, Complete Staph, Coag Neg (Veneer Manufacturer) Assessment/Plan Assessment/Plan Assess & Plan/Chief 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 pain better controlled with AUTOMOBILE CONTRACT CLERK. increase pain most likely second laparoscopy in short duration. d/c maldonado and possibley NGT today. up in chair today as well as ambulate in halls if able. Clinical Quality Measures DVT/VTE Risk/Contraindication: Risk Factor Score Per Nursin RFS Level Per Nursing on Admit: 2=Moderate PABLITO MARION MD May 17, 2017 12:10 pm
[2017-05-17] MEDS: LORazepam INJ 2 MG/ML (ATIVAN) VIAL IVP PRN ×2 (15:15→21:55)
[2017-05-17 16:00] VITALS: BP 131/78
[2017-05-17] MEDS: LACTATED RINGERS 1,000 ML IV SCH (18:55)
[2017-05-17 20:02] VITALS: BP 120/74
[2017-05-18] VITALS (7 sets, daily range): BP systolic 117–133; BP diastolic 61–81
[2017-05-18] MEDS: LACTATED RINGERS 1,000 ML IV SCH ×3 (03:24→21:27)
[2017-05-18] MEDS: HYDROmorphone PCA 0.2 MG/ML 30 ML (DILAUDID) IV PRN ×2 (05:39→11:45)
[2017-05-18 06:49] LABS: MEAN PLATELET VOLUME 10.8 FL (7.4-10.4); RED BLOOD COUNT 3.16 10^6/uL (4.35-5.85); WHITE BLOOD COUNT 8.2 10^3/uL (4.3-11.0)
[2017-05-18 07:12] LABS: ALANINE AMINOTRANSFERASE 46 U/L (0-55); ALBUMIN 2.6 GM/DL (3.2-4.5); ANION GAP 9 MMOL/L (5-14); ASPARTATE AMINO TRANSFERASE 31 U/L (5-34); BILIRUBIN,TOTAL 0.3 MG/DL (0.1-1.0); BLOOD UREA NITROGEN 6 MG/DL (7-18); BUN/CREATININE RATIO 9; CALCIUM 8.2 MG/DL (8.5-10.1); CARBON DIOXIDE 25 MMOL/L (21-32); CHLORIDE 97 MMOL/L (98-107); CREATININE SERUM 0.66 MG/DL (0.60-1.30); GFR ESTIMATED > 60; GLUCOSE 96 MG/DL (70-105); POTASSIUM 4.2 MMOL/L (3.6-5.0); SODIUM 131 MMOL/L (135-145); TOTAL PROTEIN 5.5 GM/DL (6.4-8.2)
[2017-05-18] MEDS: CIPROFLOXACIN IV 400MG/200ML 200 ML IV SCH ×2 (08:31→21:27)
[2017-05-18] MEDS: ENOXAPARIN 80 MG/0.8 ML (LOVENOX) SYR SC SCH ×2 (08:31→20:23)
[2017-05-18] MEDS: diphenhydrAMINE 25 MG TAB (BENADRYL) PO PRN ×2 (08:31→20:23)
[2017-05-18] MEDS: PANTOPRAZOLE 40 MG (PROTONIX) TAB PO SCH ×2 (08:31→20:24)
--- NOTE | 2017-05-18 08:37 | Progress Note (SOAP) ---
Subjective Date Seen by Provider: May 18, 2017 Time Seen by Provider: 08:37 Subjective/Events-last exam PT REPORTS SHE IS STILL IN PAIN, STILL HAVING NAUSEA INTERMITTENTLY. SHE STATES THAT SHE IS HAVING CRAMPING DISCOMFORT. Review of Systems General: Fatigue Pulmonary: No Dyspnea, No Cough Cardiovascular: No: Chest Pain, Palpitations Gastrointestinal: Nausea, Abdominal Pain Genitourinary: No Dysuria Neurological: Weakness Objective Exam Vital Signs Date Time Temp Pulse Resp B/P (MAP) Pulse Ox O2 Delivery O2 Flow Rate FiO2 05/18/17 08:29 99.6 110 18 128/63 (84) 95 Room Air 05/18/17 07:10 99 Room Air 05/18/17 06:00 16 05/18/17 05:39 10 05/18/17 04:00 97.5 109 17 128/61 (83) 99 Nasal Cannula 1.50 05/18/17 02:04 99 Room Air 05/18/17 00:00 99.1 125 10 133/81 (98) 100 Nasal Cannula 1.50 05/17/17 21:58 99 Room Air 05/17/17 21:46 16 05/17/17 20:02 98.3 118 16 120/74 (89) 100 Room Air 05/17/17 18:54 14 05/17/17 18:48 14 05/17/17 16:00 99.3 109 16 131/78 (95) 99 Room Air 05/17/17 15:02 95 Room Air 05/17/17 14:56 14 05/17/17 12:00 98.9 116 14 140/77 (98) 95 Room Air 05/17/17 10:59 14 05/17/17 09:59 94 Room Air 05/17/17 08:50 Room Air I & O 05/18/17 07:00 Intake Total 3090 ml Output Total 2170 ml Balance 920 ml Capillary Refill : Less Than 3 SecondsLess Than 3 Seconds General Appearance: WD/WN, Mild Distress Neck: Supple Respiratory: Chest Non Tender, Lungs Clear, Normal Breath Sounds, No Accessory Muscle Use, No Respiratory Distress Cardiovascular: Tachycardia Gastrointestinal: other (SURGICAL SIDES C/D/I, MILDLY TTP DIFFUSELY, MINIMAL TO NO BOWEL SOUNDS) Extremity: No Pedal Edema Neurologic/Psychiatric: Alert, Oriented x3, No Motor/Sensory Deficits, Normal Mood/Affect Skin: Warm/Dry Results Lab Laboratory Tests 12/13/17 09:42: White Blood Count 14.3H, Red Blood Count 3.50L, Hemoglobin 9.7L, Hematocrit 30L , Mean Corpuscular Volume 86, Mean Corpuscular Hemoglobin 28, Mean Corpuscular Hemoglobin Concent 32, Red Cell Distribution Width 13.7, Platelet Count 286, Mean Platelet Volume 10.2, Neutrophils (%) (Auto) 61, Lymphocytes (%) (Auto) 29 , Monocytes (%) (Auto) 11, Eosinophils (%) (Auto) 0, Basophils (%) (Auto) 0, Neutrophils # (Auto) 8.6H, Lymphocytes # (Auto) 4.1H, Monocytes # (Auto) 1.5H, Eosinophils # (Auto) 0.0, Basophils # (Auto) 0.0, Neutrophils % (Manual) 67, Lymphocytes % (Manual) 24, Monocytes % (Manual) 5, Eosinophils % (Manual) 0, Basophils % (Manual) 0, Band Neutrophils 4, Microcytosis SLIGHT, Magnesium Level 1.5L 05/18/17 05:33: White Blood Count 8.2, Red Blood Count 3.16L, Hemoglobin 8.8L, Hematocrit 28L, Mean Corpuscular Volume 88, Mean Corpuscular Hemoglobin 28, Mean Corpuscular Hemoglobin Concent 32, Red Cell Distribution Width 14.0, Platelet Count 261, Mean Platelet Volume 10.8H, Sodium Level 131L, Potassium Level 4.2, Chloride Level 97L, Carbon Dioxide Level 25, Anion Gap 9, Blood Urea Nitrogen 6L, Creatinine 0.66, Estimat Glomerular Filtration Rate > 60, BUN/Creatinine Ratio 9 , Glucose Level 96, Calcium Level 8.2L, Total Bilirubin 0.3, Aspartate Amino Transf (AST/SGOT) 31, Alanine Aminotransferase (ALT/SGPT) 46, Alkaline Phosphatase 142H, Total Protein 5.5L, Albumin 2.6L Microbiology 05/07/17 Blood Culture - Final, Complete No growth 05/07/17 Urine Culture - Final, Complete Staph, Coag Neg (Hydrate Thickener Operator) Assessment/Plan Assessment/Plan Assess & Plan/Chief Complaint SMALL BOWEL OBSTRUCTION POST-OP PARTIAL SMALL BOWEL RESECTION. NAUSEA ABDOMINAL PAIN MESENTERIC VEIN THROMBOSIS TACHYCARDIA HYPOMAGNESEMIA HYPOKALEMIA SMALL BOWEL OBSTRUCTION - DEFER TO DR. MARION -SMALL BOWEL FOLLOW THROUGH SHOWED JEJUNAL OBSTRUCTION -PT STILL IN PAIN - DILAUDID CYCLING INSTRUCTOR IS HELPING HER DISCOMFORT. SHE DENIES ANY BOWEL MOVEMENTS, CONTINUE TO ENCOURAGE PT TO AMBULATE, MOBILIZE HERSELF IN HER ROOM AND IN THE [place], DAVIS TO BE REMOVED TODAY. MESENTERIC VEIN THROMBOSIS - CONTINUE WITH LOVENOX. TACHYCARDIA - MONITOR SYMPTOMS - KEEP BETA MILAGROS PRN IF HEART RATE IS AT OR ABOVE 120 HYPOMAGNESEMIA AND HYPOKALEMIA - REPLACE WITH IV FLUIDS. - CLINIMIX AND SMALL AMOUNT OF SALINE TO RUN IN FOR A TOTAL OF 150ML/HR Clinical Quality Measures DVT/VTE Risk/Contraindication: Risk Factor Score Per Nursin RFS Level Per Nursing on Admit: 2=Moderate JONATHAN SMITH MD May 18, 2017 08:37
[2017-05-18] MEDS ORDERED: ACETAMINOPHEN 500 MG TAB (TYLENOL) PO PRN (08:45)
[2017-05-18] MEDS: meTOprolol TARTRATE 25 MG (LOPRESSOR) TABLET PO SCH ×2 (09:52→20:24)
[2017-05-18] MEDS: METOCLOPRAMIDE INJ 10 MG/2 ML (REGLAN) IVP PRN (09:52)
[2017-05-18] MEDS: metroNIDAZOLE 500MG/100ML IVPB 100 ML IV SCH ×2 (09:54→20:23)
[2017-05-18] MEDS: ONDANSETRON 4 MG/2 ML (SDV) Z0FRAN IV PRN (12:54)
[2017-05-18] MEDS ORDERED: NS IV SCH ×2 (13:30)
[2017-05-18] MEDS ORDERED: [UNRECOGNIZED DRUG - OTHER] IV SCH ×2 (13:30)
[2017-05-18] MEDS ORDERED: diphenhydrAMINE 50 MG/ML INJ (BENADRYL) IVP PRN (13:30)
--- NOTE | 2017-05-18 15:23 | Progress Note (SOAP) ---
Subjective Date Seen by Provider: May 18, 2017 Time Seen by Provider: 15:00 Subjective/Events-last exam doing better, pain better controlled. no fever/chills. no BM/flatus. no nausea/ vomiting. Objective Exam Vital Signs Date Time Temp Pulse Resp B/P (MAP) Pulse Ox O2 Delivery O2 Flow Rate FiO2 05/18/17 14:36 96 Room Air 05/18/17 12:52 99.9 109 18 117/76 (90) 93 Room Air 05/18/17 11:45 18 05/18/17 11:12 96 Room Air 05/18/17 08:29 99.6 110 18 128/63 (84) 95 Room Air 05/18/17 07:10 99 Room Air 05/18/17 06:00 16 05/18/17 05:39 10 05/18/17 04:00 97.5 109 17 128/61 (83) 99 Nasal Cannula 1.50 05/18/17 02:04 99 Room Air 05/18/17 00:00 99.1 125 10 133/81 (98) 100 Nasal Cannula 1.50 05/17/17 21:58 99 Room Air 05/17/17 21:46 16 05/17/17 20:02 98.3 118 16 120/74 (89) 100 Room Air 05/17/17 18:54 14 05/17/17 18:48 14 05/17/17 16:00 99.3 109 16 131/78 (95) 99 Room Air I & O 05/18/17 07:00 Intake Total 3090 ml Output Total 2170 ml Balance 920 ml Capillary Refill : Less Than 3 SecondsLess Than 3 Seconds General Appearance: No Apparent Distress HEENT: PERRL/EOMI Neck: Full Range of Motion Respiratory: Chest Non Tender, Lungs Clear Cardiovascular: Regular Rate, Rhythm Gastrointestinal: soft, tenderness Extremity: Normal Capillary Refill Neurologic/Psychiatric: Alert, Oriented x3 Skin: Normal Color Lymphatic: No Adenopathy Results Lab Laboratory Tests 05/18/17 05:33: White Blood Count 8.2, Red Blood Count 3.16L, Hemoglobin 8.8L, Hematocrit 28L, Mean Corpuscular Volume 88, Mean Corpuscular Hemoglobin 28, Mean Corpuscular Hemoglobin Concent 32, Red Cell Distribution Width 14.0, Platelet Count 261, Mean Platelet Volume 10.8H, Sodium Level 131L, Potassium Level 4.2, Chloride Level 97L, Carbon Dioxide Level 25, Anion Gap 9, Blood Urea Nitrogen 6L, Creatinine 0.66, Estimat Glomerular Filtration Rate > 60, BUN/Creatinine Ratio 9 , Glucose Level 96, Calcium Level 8.2L, Total Bilirubin 0.3, Aspartate Amino Transf (AST/SGOT) 31, Alanine Aminotransferase (ALT/SGPT) 46, Alkaline Phosphatase 142H, Total Protein 5.5L, Albumin 2.6L Microbiology 05/07/17 Blood Culture - Final, Complete No growth 05/07/17 Urine Culture - Final, Complete Staph, Coag Neg (Life Teacher) Assessment/Plan Assessment/Plan Assess & Plan/Chief 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 pain better controlled with SHIP MANAGER, d/c continuous dose. increased pain most likely second laparoscopy in short duration. ambulate in halls TID. await flatus and start clear liquid diet. Clinical Quality Measures DVT/VTE Risk/Contraindication: Risk Factor Score Per Nursin RFS Level Per Nursing on Admit: 2=Moderate PABLITO MARION MD May 18, 2017 3:23 pm
[2017-05-18] MEDS: oxyCODONE/APAP 10/325MG (PERCOCET 10) TABLET PO PRN ×2 (17:08→20:51)
[2017-05-19] MEDS: oxyCODONE/APAP 10/325MG (PERCOCET 10) TABLET PO PRN ×4 (02:58→14:44)
[2017-05-19] MEDS: ONDANSETRON 4 MG/2 ML (SDV) Z0FRAN IV PRN ×5 (03:07→22:32)
[2017-05-19 04:06] VITALS: BP 127/76
[2017-05-19] MEDS: LACTATED RINGERS 1,000 ML IV SCH ×3 (05:25→16:17)
[2017-05-19 06:19] LABS: ALANINE AMINOTRANSFERASE 34 U/L (0-55); ALBUMIN 2.6 GM/DL (3.2-4.5); ANION GAP 8 MMOL/L (5-14); ASPARTATE AMINO TRANSFERASE 21 U/L (5-34); BILIRUBIN,TOTAL 0.2 MG/DL (0.1-1.0); BLOOD UREA NITROGEN 4 MG/DL (7-18); BUN/CREATININE RATIO 7; CALCIUM 8.6 MG/DL (8.5-10.1); CARBON DIOXIDE 28 MMOL/L (21-32); CHLORIDE 99 MMOL/L (98-107); CREATININE SERUM 0.61 MG/DL (0.60-1.30); GFR ESTIMATED > 60; GLUCOSE 99 MG/DL (70-105); POTASSIUM 3.9 MMOL/L (3.6-5.0); SODIUM 135 MMOL/L (135-145); TOTAL PROTEIN 5.7 GM/DL (6.4-8.2)
[2017-05-19 08:00] VITALS: BP 127/78
[2017-05-19] MEDS: CIPROFLOXACIN IV 400MG/200ML 200 ML IV SCH ×2 (08:30→21:23)
[2017-05-19] MEDS: ENOXAPARIN 80 MG/0.8 ML (LOVENOX) SYR SC SCH ×2 (08:30→20:34)
[2017-05-19] MEDS: PANTOPRAZOLE 40 MG (PROTONIX) TAB PO SCH (08:30)
--- NOTE | 2017-05-19 08:53 | Progress Note (SOAP) ---
Subjective Date Seen by Provider: May 19, 2017 Time Seen by Provider: 08:53 Subjective/Events-last exam PT REPORTS THAT SHE IS FEELING A VERY SMALL AMOUNT BETTER. SHE REPORTS THAT SHE IS HAVING MINIMAL INTAKE DUE TO NAUSEA. SHE HAS HAD BELCHING, BUT HAS NOT PASSED FLATUS. SHE REPORTS NO BOWEL MOVEMENT AND SHE ALSO REPORTS PAIN IN HER MID ABDOMEN ON THE LEFT Review of Systems General: Fatigue Pulmonary: No Dyspnea, No Cough Cardiovascular: No: Chest Pain, Palpitations Gastrointestinal: Abdominal Pain, No: Nausea Neurological: Weakness, No: Confusion Objective Exam Vital Signs Date Time Temp Pulse Resp B/P (MAP) Pulse Ox O2 Delivery O2 Flow Rate FiO2 05/19/17 08:00 98.6 116 16 127/78 (94) 94 Room Air 05/19/17 06:00 20 05/19/17 04:06 99.0 109 20 127/76 (93) 96 Room Air 05/19/17 02:22 93 Room Air 05/18/17 23:20 99.6 99 16 124/80 (95) 99 Room Air 05/18/17 21:54 96 Room Air 05/18/17 20:01 98.7 112 18 129/81 (97) 99 Room Air 05/18/17 18:41 94 Room Air 05/18/17 18:13 18 05/18/17 15:54 99.2 115 18 128/70 (89) 96 Room Air 05/18/17 14:36 96 Room Air 05/18/17 12:52 99.9 109 18 117/76 (90) 93 Room Air 05/18/17 11:45 18 05/18/17 11:12 96 Room Air I & O 05/19/17 07:00 Intake Total 1280 ml Output Total 3480 ml Balance -2200 ml Capillary Refill : Less Than 3 SecondsLess Than 3 Seconds General Appearance: WD/WN, Mild Distress HEENT: PERRL/EOMI Neck: Full Range of Motion, Supple Respiratory: Chest Non Tender, Lungs Clear, Normal Breath Sounds, No Accessory Muscle Use Cardiovascular: Tachycardia Gastrointestinal: other (MINIMAL BOWEL SOUNDS - TTP IN LEFT MID TO LOWER ABDOMEN, INCISIONS C/D/I ) Extremity: No Pedal Edema Neurologic/Psychiatric: Alert, Oriented x3, No Motor/Sensory Deficits, Normal Mood/Affect Skin: Warm/Dry Lymphatic: No Adenopathy Results Lab Laboratory Tests 05/19/17 05:15: Hemoglobin 8.6L, Hematocrit 27L, Sodium Level 135, Potassium Level 3.9, Chloride Level 99, Carbon Dioxide Level 28, Anion Gap 8, Blood Urea Nitrogen 4L , Creatinine 0.61, Estimat Glomerular Filtration Rate > 60, BUN/Creatinine Ratio 7, Glucose Level 99, Calcium Level 8.6, Total Bilirubin 0.2, Aspartate Amino Transf (AST/SGOT) 21, Alanine Aminotransferase (ALT/SGPT) 34, Alkaline Phosphatase 134, Total Protein 5.7L, Albumin 2.6L Microbiology 05/07/17 Blood Culture - Final, Complete No growth 05/07/17 Urine Culture - Final, Complete Staph, Coag Neg (Hammer Smith) Assessment/Plan Assessment/Plan Assess & Plan/Chief Complaint SMALL BOWEL OBSTRUCTION POST-OP PARTIAL SMALL BOWEL RESECTION NAUSEA ABDOMINAL PAIN MESENTERIC VEIN THROMBOSIS TACHYCARDIA HYPOMAGNESEMIA HYPOKALEMIA SMALL BOWEL OBSTRUCTION - DEFER TO DR. MARION -SMALL BOWEL FOLLOW THROUGH SHOWED JEJUNAL OBSTRUCTION - MESENTERIC VEIN THROMBOSIS - CONTINUE WITH LOVENOX. TACHYCARDIA - MONITOR SYMPTOMS -RESTART BETA-MILAGROS AT 12.5MG PO BID METOPROLOL TARTRATE HYPOMAGNESEMIA AND HYPOKALEMIA - CONTINUE WITH IV FLUIDS - REPLACE POTASSIUM AND MAGNESIUM PRN Clinical Quality Measures DVT/VTE Risk/Contraindication: Risk Factor Score Per Nursin RFS Level Per Nursing on Admit: 2=Moderate JONATHAN SMITH MD May 19, 2017 08:53
[2017-05-19] MEDS: meTOprolol TARTRATE 25 MG (LOPRESSOR) TABLET PO SCH ×2 (10:03→21:11)
[2017-05-19] MEDS: metroNIDAZOLE 500MG/100ML IVPB 100 ML IV SCH ×2 (10:04→20:36)
[2017-05-19] MEDS ORDERED: meTOprolol TARTRATE 25 MG (LOPRESSOR) TABLET PO NR (10:15)
--- NOTE | 2017-05-19 14:24 | Progress Note (SOAP) ---
Subjective Date Seen by Provider: May 19, 2017 Time Seen by Provider: 14:00 Subjective/Events-last exam doing ok. pain better controlled and ambulating better. small episode emesis in am. no flatus or BM yet. Objective Exam Vital Signs Date Time Temp Pulse Resp B/P (MAP) Pulse Ox O2 Delivery O2 Flow Rate FiO2 05/19/17 08:00 98.6 116 16 127/78 (94) 94 Room Air 05/19/17 06:00 20 05/19/17 04:06 99.0 109 20 127/76 (93) 96 Room Air 05/19/17 02:22 93 Room Air 05/18/17 23:20 99.6 99 16 124/80 (95) 99 Room Air 05/18/17 21:54 96 Room Air 05/18/17 20:01 98.7 112 18 129/81 (97) 99 Room Air 05/18/17 18:41 94 Room Air 05/18/17 18:13 18 05/18/17 15:54 99.2 115 18 128/70 (89) 96 Room Air 05/18/17 14:36 96 Room Air I & O 05/19/17 07:00 Intake Total 1280 ml Output Total 3480 ml Balance -2200 ml Capillary Refill : Less Than 3 SecondsLess Than 3 Seconds General Appearance: No Apparent Distress HEENT: PERRL/EOMI Neck: Full Range of Motion Respiratory: Chest Non Tender, Lungs Clear, Normal Breath Sounds Cardiovascular: Regular Rate, Rhythm Gastrointestinal: normal bowel sounds, soft, tenderness Extremity: Normal Capillary Refill Neurologic/Psychiatric: Alert, Oriented x3 Skin: Normal Color Lymphatic: No Adenopathy Results Lab Laboratory Tests 05/19/17 05:15: Hemoglobin 8.6L, Hematocrit 27L, Sodium Level 135, Potassium Level 3.9, Chloride Level 99, Carbon Dioxide Level 28, Anion Gap 8, Blood Urea Nitrogen 4L , Creatinine 0.61, Estimat Glomerular Filtration Rate > 60, BUN/Creatinine Ratio 7, Glucose Level 99, Calcium Level 8.6, Total Bilirubin 0.2, Aspartate Amino Transf (AST/SGOT) 21, Alanine Aminotransferase (ALT/SGPT) 34, Alkaline Phosphatase 134, Total Protein 5.7L, Albumin 2.6L Microbiology 05/07/17 Blood Culture - Final, Complete No growth 05/07/17 Urine Culture - Final, Complete Staph, Coag Neg (Lumber Estimator) Assessment/Plan Assessment/Plan Assess & Plan/Chief 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 pain better controlled with VASCULAR SURGERY PHYSICIAN, d/c continuous dose. increased pain most likely second laparoscopy in short duration. ambulate in halls TID. start clear liquid diet, advance when more bowel fxn. Clinical Quality Measures DVT/VTE Risk/Contraindication: Risk Factor Score Per Nursin RFS Level Per Nursing on Admit: 2=Moderate PABLITO MARION MD May 19, 2017 14:24
--- NOTE | 2017-05-19 14:25 | Discharge Inst-Surgical ---
D/C Lap Instructions-[facility] Follow Up Appt in 2 weeks Activity as tolerated No driving for 24 hours No driving while on pain medications Incentive Spirometry use every 2 hours while awake Regular Diet Symptoms to Report: Fever over 101 degree F, Nausea/Vomiting Infection Signs and Symptoms to report: Increased redness, Foul odor of wound, Increased drainage Bathing instructions: May shower Operative Area Clean/Dry; Keep incision clean/dry If any problems/questions: Contact your physician or go to Emergency Room PABLITO MARION MD May 19, 2017 14:25
[2017-05-19] MEDS: METOCLOPRAMIDE INJ 10 MG/2 ML (REGLAN) IVP PRN (15:03)
[2017-05-19] MEDS: fentaNYL INJECTION 100 MCG/2 ML AMP IVP PRN ×4 (15:03→21:12)
[2017-05-19] MEDS: CETIRIZINE 10 MG PO SCH (15:11)
[2017-05-19 15:54] VITALS: BP 135/77
[2017-05-19] MEDS: CATHETER FLUSH 10 ML SYR IV PRN (20:34)
[2017-05-19] MEDS: PANTOPRAZOLE 40 MG/10 ML (PROTONIX) VIAL IV SCH (20:34)
[2017-05-19] MEDS: SCOPOLAMINE 1.5 MG (TRANSDERM-SCOP) PATCH TOP SCH (20:36)
[2017-05-19] MEDS: LORazepam INJ 2 MG/ML (ATIVAN) VIAL IVP PRN (22:32)
[2017-05-20] VITALS: BP 124/75
[2017-05-20] MEDS: fentaNYL INJECTION 100 MCG/2 ML AMP IVP PRN ×8 (02:12→22:25)
[2017-05-20] MEDS: ONDANSETRON 4 MG/2 ML (SDV) Z0FRAN IV PRN ×2 (02:12→11:00)
[2017-05-20] MEDS: LACTATED RINGERS 1,000 ML IV SCH ×3 (03:48→21:49)
[2017-05-20 08:00] VITALS: BP 131/72
[2017-05-20] MEDS: CIPROFLOXACIN IV 400MG/200ML 200 ML IV SCH ×2 (09:20→21:40)
[2017-05-20] MEDS: PANTOPRAZOLE 40 MG/10 ML (PROTONIX) VIAL IV SCH ×2 (09:20→20:19)
[2017-05-20] MEDS: ENOXAPARIN 80 MG/0.8 ML (LOVENOX) SYR SC SCH ×2 (09:24→20:19)
[2017-05-20] MEDS: CETIRIZINE 10 MG PO SCH (09:27)
[2017-05-20] MEDS: meTOprolol TARTRATE 25 MG (LOPRESSOR) TABLET PO SCH ×2 (09:28→20:19)
[2017-05-20] MEDS: metroNIDAZOLE 500MG/100ML IVPB 100 ML IV SCH ×2 (10:42→20:19)
--- NOTE | 2017-05-20 11:49 | Progress Note-Hospitalist ---
Standard Progress Note Progress Notes/Assess & Plan Date Seen 05/20/17 Time Seen by Provider: 11:45 Diagnosis The patient is a 27-year-old white female now on day 13 of this hospitalization. Her WOES began in April when she was found to have a portal vein thrombosis. She was ultimately sent to [facility] as it appeared she was not having satisfactory anticoagulation with Eliquis. She was sent home on Lovenox subcutaneous therapy. She continued to have abdominal pain as an outpatient and was ultimately admitted. She appeared to have a small bowel obstruction and was taken to surgery. Dr. MARION performed a laparoscopic resection of the small bowel with re-anastomosis. She has been slow to recover bowel function. She states that today there seems to be some early rumbling in the pelvis and she is hoping that with frequent walking she can generate flatus and or bowel material. She reports modest nausea but no vomiting. Physical exam: She is lying in bed. She appears to be in no discomfort. Lungs are clear to auscultation. CV is regular without murmur. The abdomen is modestly tender to palpation. There is no guarding or rebound. Faint bowel sounds are heard in the left lower quadrant. Impression: Prolonged postoperative ileus. Plan: Encourage walking in the hallways. Labs Laboratory Tests 05/19/17 05:15 FARHANA VALDES MD May 20, 2017 11:49
[2017-05-20] MEDS: METOCLOPRAMIDE INJ 10 MG/2 ML (REGLAN) IVP PRN (12:02)
--- NOTE | 2017-05-20 12:40 | Progress Note ---
Subjective Time Seen by Provider: 12:07 Subjective/Events-last exam Pt seen and examined, she had emesis last night and now has some nausea. She is not eating ice chips because she doesn't want to throw up again. She was worried about her MIKKI drain , was some fluid leaking around it and had some redness. Review of Systems General: No Chills, No Night Sweats Pulmonary: No Dyspnea Cardiovascular: No: Chest Pain, Palpitations Gastrointestinal: Nausea, Abdominal Pain Objective Exam Vital Signs Date Time Temp Pulse Resp B/P (MAP) Pulse Ox O2 Delivery O2 Flow Rate FiO2 05/20/17 00:00 98.8 102 14 124/75 (91) 98 Room Air 05/19/17 15:54 96.4 109 20 135/77 (96) 96 Room Air 05/19/17 15:41 16 I & O 05/20/17 07:00 Intake Total 2665 ml Output Total 3150 ml Balance -485 ml Capillary Refill : Less Than 3 SecondsLess Than 3 Seconds General Appearance: No Apparent Distress, WD/WN HEENT: PERRL/EOMI Respiratory: Chest Non Tender, Lungs Clear, Normal Breath Sounds Cardiovascular: Regular Rate, Rhythm Gastrointestinal: normal bowel sounds, soft, tenderness (minimal), other ( incisions are c/d/i. There is no erythema around MIKKI drain and no leakage, looks good.) Results Lab Microbiology 05/07/17 Blood Culture - Final, Complete No growth 05/07/17 Urine Culture - Final, Complete Staph, Coag Neg (Ammonia Refrigeration Worker) Assessment/Plan Assessment/Plan Assessment/Plan S/P segmental jejunal resection and anastomosis. --pain mostly controlled with CERTIFIED MEDICAL RECORDS CODER, pt told to continue toambulate in halls TID, ok to chew gum. will start ice chips once she has flatus and then advance when more bowel fxn. Clinical Quality Measures DVT/VTE Risk/Contraindication: Risk Factor Score Per Nursin RFS Level Per Nursing on Admit: 2=Moderate JOSE WALTON DO May 20, 2017 12:40
[2017-05-20 15:41] VITALS: BP 121/70
[2017-05-20 20:34] VITALS: BP 134/83
[2017-05-20] MEDS: LORazepam INJ 2 MG/ML (ATIVAN) VIAL IVP PRN (22:25)
[2017-05-21] VITALS: BP 132/78
[2017-05-21] MEDS: LACTATED RINGERS 1,000 ML IV SCH ×3 (00:25→19:21)
[2017-05-21] MEDS: fentaNYL INJECTION 100 MCG/2 ML AMP IVP PRN ×10 (00:26→23:19)
[2017-05-21 08:00] VITALS: BP 120/69
[2017-05-21] MEDS: PANTOPRAZOLE 40 MG/10 ML (PROTONIX) VIAL IV SCH ×2 (08:14→20:40)
[2017-05-21] MEDS: metroNIDAZOLE 500MG/100ML IVPB 100 ML IV SCH ×2 (08:15→21:44)
[2017-05-21] MEDS: meTOprolol TARTRATE 25 MG (LOPRESSOR) TABLET PO SCH ×2 (08:19→20:42)
[2017-05-21] MEDS: ENOXAPARIN 80 MG/0.8 ML (LOVENOX) SYR SC SCH ×2 (08:19→20:40)
[2017-05-21] MEDS: CETIRIZINE 10 MG PO SCH (08:20)
[2017-05-21] MEDS: CIPROFLOXACIN IV 400MG/200ML 200 ML IV SCH ×2 (09:22→20:40)
--- NOTE | 2017-05-21 11:23 | Progress Note-Hospitalist ---
Standard Progress Note Progress Notes/Assess & Plan Date Seen 05/21/17 Time Seen by Provider: 11:20 Diagnosis The patient is a 27-year-old white female now on day 13 of this hospitalization. Her WOES began in April when she was found to have a portal vein thrombosis. She was ultimately sent to [facility] as it appeared she was not having satisfactory anticoagulation with Eliquis. She was sent home on Lovenox subcutaneous therapy. She continued to have abdominal pain as an outpatient and was ultimately admitted. She appeared to have a small bowel obstruction and was taken to surgery. Dr. MARION performed a laparoscopic resection of the small bowel with re-anastomosis. She has been slow to recover bowel function. She states that today there seems to be some early rumbling in the pelvis and she is hoping that with frequent walking she can generate flatus and or bowel material. She reports modest nausea but no vomiting. Physical exam: She is lying in bed. She appears to be in no discomfort. Lungs are clear to auscultation. CV is regular without murmur. The abdomen is modestly tender to palpation. There is no guarding or rebound. Faint bowel sounds are heard in the left lower quadrant. Impression: Prolonged postoperative ileus. Plan: Encourage walking in the hallways. Assess & Plan/Chief Complaint The patient reports that she feels a fair bit better today. She has passed material per rectum. She has been taking liquids by mouth. She states she has no appetite at this point. She also notes that her left hand is a bit swollen. She has a midline IV on this arm and it is felt that the minimum swelling exhibited is related to that. Physical exam: Her affect is lively. Lungs are clear to auscultation. CV is regular without murmur. The abdomen is soft. Bowel sounds are hypoactive. Extremities show 1+ edema at the dorsum of the left hand and fingers. Impression: Postoperative ileus with evidence of resolution. Plan: Encourage walking. She is also encouraged to minimize pain meds as best possible as this is a negative influence on bowel motility. FARHANA VALDES MD May 21, 2017 11:23
--- NOTE | 2017-05-21 12:16 | Progress Note ---
Subjective Time Seen by Provider: 11:29 Subjective/Events-last exam Pt seen and examined, looks better than yesterday. States no nausea or vomiting , basically no abdominal pain and is tolerating small amounts of clears. She wants to take it slow, because she is worried about vomiting again. Review of Systems General: No Chills Pulmonary: No Dyspnea, No Cough Cardiovascular: No: Chest Pain Objective Exam Vital Signs Date Time Temp Pulse Resp B/P (MAP) Pulse Ox O2 Delivery O2 Flow Rate FiO2 05/21/17 08:00 99.1 85 24 120/69 (86) 97 Room Air 05/21/17 07:14 Room Air 05/21/17 00:00 97.5 81 16 132/78 (96) 99 Room Air 05/20/17 20:34 98.2 89 20 134/83 (100) 100 Room Air 05/20/17 15:41 97.5 91 18 121/70 (87) 97 Room Air I & O 05/21/17 07:00 Intake Total 1520 ml Output Total 3120 ml Balance -1600 ml Capillary Refill : Less Than 3 SecondsLess Than 3 Seconds General Appearance: No Apparent Distress, WD/WN HEENT: PERRL/EOMI Respiratory: Chest Non Tender, Lungs Clear, Normal Breath Sounds Cardiovascular: Regular Rate, Rhythm Gastrointestinal: normal bowel sounds, soft, other (incisions are c/d/i. There is no erythema around MIKKI drain and no leakage, looks good.) Results Lab Microbiology 05/07/17 Blood Culture - Final, Complete No growth 05/07/17 Urine Culture - Final, Complete Staph, Coag Neg (Director Visual) Assessment/Plan Assessment/Plan Assessment/Plan S/P segmental jejunal resection and anastomosis. --pain controlled with URBAN AND REGIONAL PLANNER, pt told to continue to ambulate in halls TID, ok to chew gum. will start sips of clears and advance slowly. Clinical Quality Measures DVT/VTE Risk/Contraindication: Risk Factor Score Per Nursin RFS Level Per Nursing on Admit: 2=Moderate JOSE WALTON DO May 21, 2017 12:16
[2017-05-21 16:00] VITALS: BP 130/79
[2017-05-21] MEDS: ONDANSETRON 4 MG/2 ML (SDV) Z0FRAN IV PRN (23:06)
[2017-05-21] MEDS: LORazepam INJ 2 MG/ML (ATIVAN) VIAL IVP PRN (23:19)
[2017-05-21 23:20] VITALS: BP 129/84
[2017-05-22] MEDS: fentaNYL INJECTION 100 MCG/2 ML AMP IVP PRN ×7 (05:22→22:51)
[2017-05-22] MEDS: LACTATED RINGERS 1,000 ML IV SCH ×3 (05:22→18:27)
[2017-05-22] MEDS: CIPROFLOXACIN IV 400MG/200ML 200 ML IV SCH ×2 (07:46→21:13)
[2017-05-22 07:48] VITALS: BP 123/74
[2017-05-22] MEDS: PANTOPRAZOLE 40 MG/10 ML (PROTONIX) VIAL IV SCH ×2 (08:48→21:14)
[2017-05-22] MEDS: meTOprolol TARTRATE 25 MG (LOPRESSOR) TABLET PO SCH ×2 (08:48→21:13)
[2017-05-22] MEDS: ENOXAPARIN 80 MG/0.8 ML (LOVENOX) SYR SC SCH ×2 (08:48→21:14)
[2017-05-22] MEDS: CETIRIZINE 10 MG PO SCH (08:49)
[2017-05-22] MEDS: metroNIDAZOLE 500MG/100ML IVPB 100 ML IV SCH ×2 (08:49→21:13)
--- NOTE | 2017-05-22 09:08 | Progress Note (SOAP) ---
Subjective Date Seen by Provider: May 22, 2017 Time Seen by Provider: 08:30 Subjective/Events-last exam PT IS A 27 Y/O FEMALE WHO IS KNOWN TO ME FROM CLINIC. THIS MORNING SHE STATES THAT SHE HAS BEEN HAVING ABDOMINAL CRAMPING, FEELING LIKE HER GI TRACT IS GOING TO MOVE - BUT SHE HAS ONLY HAD PASSAGE OF FLATUS. Review of Systems General: Fatigue HEENT: No Head Aches Pulmonary: No Dyspnea, No Cough Cardiovascular: No: Chest Pain, Palpitations Gastrointestinal: Nausea (INTERMITTENT), Abdominal Pain Genitourinary: No Dysuria, No Frequency Neurological: No: Weakness, Confusion Objective Exam Vital Signs Date Time Temp Pulse Resp B/P (MAP) Pulse Ox O2 Delivery O2 Flow Rate FiO2 05/22/17 07:48 98.3 80 20 123/74 (90) 98 Room Air 05/21/17 23:20 97.5 83 20 129/84 (99) 94 Room Air 05/21/17 16:00 97.8 82 18 130/79 (96) 97 Room Air I & O 05/22/17 07:00 Intake Total 2050 ml Output Total 3240 ml Balance -1190 ml Capillary Refill : Less Than 3 SecondsLess Than 3 Seconds General Appearance: No Apparent Distress, WD/WN HEENT: PERRL/EOMI Neck: Full Range of Motion, Supple Respiratory: Chest Non Tender, Lungs Clear, Normal Breath Sounds, No Accessory Muscle Use Cardiovascular: Regular Rate, Rhythm, No Edema Gastrointestinal: tenderness, other (BOWEL SOUNDS - DECREASED BUT PRESENT) Neurologic/Psychiatric: Alert, Oriented x3, No Motor/Sensory Deficits, Normal Mood/Affect Skin: Warm/Dry Results Lab Microbiology 05/07/17 Blood Culture - Final, Complete No growth 05/07/17 Urine Culture - Final, Complete Staph, Coag Neg (Substation Mechanic) Assessment/Plan Assessment/Plan Assess & Plan/Chief Complaint SMALL BOWEL OBSTRUCTION POST-OP PARTIAL SMALL BOWEL RESECTION NAUSEA ABDOMINAL PAIN MESENTERIC VEIN THROMBOSIS TACHYCARDIA HYPOMAGNESEMIA HYPOKALEMIA SMALL BOWEL OBSTRUCTION - DEFER TO DR. MARION -SMALL BOWEL FOLLOW THROUGH SHOWED JEJUNAL OBSTRUCTION - PT IS POST-OP PARTIAL SMALL BOWEL RESECTION WITH PRIMARY RE-ANASTOMOSIS. PT TO START INCREASED INTAKE AND PT TO MONITOR SYMPTOMS, NAUSEA CONTROL WITH REGLAN AND ZOFRAN. MESENTERIC VEIN THROMBOSIS - CONTINUE WITH LOVENOX. TACHYCARDIA - MONITOR SYMPTOMS -RESTARTED BETA-MILAGROS AT 12.5MG PO BID METOPROLOL TARTRATE HYPOMAGNESEMIA AND HYPOKALEMIA - RESOLVED - REPLACE POTASSIUM AND MAGNESIUM PRN Clinical Quality Measures DVT/VTE Risk/Contraindication: Risk Factor Score Per Nursin RFS Level Per Nursing on Admit: 2=Moderate JONATHAN SMITH MD May 22, 2017 09:08
[2017-05-22 15:39] VITALS: BP 135/85
--- NOTE | 2017-05-22 17:53 | Progress Note (SOAP) ---
Subjective Date Seen by Provider: May 22, 2017 Time Seen by Provider: 17:00 Subjective/Events-last exam doing well. having BM's and tolerating dys3 diet. pain better controlled with PO ultram Objective Exam Vital Signs Date Time Temp Pulse Resp B/P (MAP) Pulse Ox O2 Delivery O2 Flow Rate FiO2 05/22/17 17:02 98.1 05/22/17 15:39 98.1 76 16 135/85 (102) 98 Room Air 05/22/17 14:46 Room Air 05/22/17 07:48 98.3 80 20 123/74 (90) 98 Room Air 05/21/17 23:20 97.5 83 20 129/84 (99) 94 Room Air I & O 05/22/17 07:00 Intake Total 2050 ml Output Total 3240 ml Balance -1190 ml Capillary Refill : Less Than 3 SecondsLess Than 3 Seconds General Appearance: No Apparent Distress HEENT: PERRL/EOMI Neck: Full Range of Motion Respiratory: Chest Non Tender, Lungs Clear, Normal Breath Sounds Cardiovascular: Regular Rate, Rhythm Gastrointestinal: normal bowel sounds, soft, other (incisions clean/dry) Extremity: Normal Capillary Refill Neurologic/Psychiatric: Alert, Oriented x3 Skin: Normal Color Lymphatic: No Adenopathy Results Lab Microbiology 05/07/17 Blood Culture - Final, Complete No growth 05/07/17 Urine Culture - Final, Complete Staph, Coag Neg (Food Or Baggage Handling Rampman) Assessment/Plan Assessment/Plan Assess & Plan/Chief 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 pain better controlled with PO ultram. increased pain most likely second laparoscopy in short duration. ambulate in halls WID. having BM's and tolerating dys3 diet. plan for home tomorrow with ultram script. Clinical Quality Measures DVT/VTE Risk/Contraindication: Risk Factor Score Per Nursin RFS Level Per Nursing on Admit: 2=Moderate PABLITO MARION MD May 22, 2017 5:53 pm
[2017-05-22 19:20] VITALS: BP 131/82
[2017-05-22] MEDS: ONDANSETRON 4 MG/2 ML (SDV) Z0FRAN IV PRN (19:21)
[2017-05-22] MEDS: SCOPOLAMINE 1.5 MG (TRANSDERM-SCOP) PATCH TOP SCH (21:13)
[2017-05-22] MEDS: LORazepam INJ 2 MG/ML (ATIVAN) VIAL IVP PRN (23:30)
[2017-05-23 00:45] VITALS: BP 117/79
[2017-05-23] MEDS: fentaNYL INJECTION 100 MCG/2 ML AMP IVP PRN ×2 (02:15→06:30)
[2017-05-23 08:00] VITALS: BP 114/76
[2017-05-23] MEDS: PANTOPRAZOLE 40 MG/10 ML (PROTONIX) VIAL IV SCH (08:24)
[2017-05-23] MEDS: CATHETER FLUSH 10 ML SYR IV PRN (08:24)
[2017-05-23] MEDS: CETIRIZINE 10 MG PO SCH (08:25)
[2017-05-23] MEDS: meTOprolol TARTRATE 25 MG (LOPRESSOR) TABLET PO SCH (08:25)
[2017-05-23] MEDS: ENOXAPARIN 80 MG/0.8 ML (LOVENOX) SYR SC SCH (08:27)
[2017-05-23] MEDS: metroNIDAZOLE 500MG/100ML IVPB 100 ML IV SCH (08:29)
--- NOTE | 2017-05-23 08:40 | Progress Note (SOAP) ---
Subjective Date Seen by Provider: May 23, 2017 Time Seen by Provider: 08:15 Subjective/Events-last exam PT REPORTS THAT SHE IS FEELING FATIGUED, BUT IS EXCITED THAT SHE HAD A BOWEL MOVEMENT LAST NIGHT AND A FEW SMALL PASSAGES THIS MORNING. SHE REPORTS THAT SHE IS HAVING PERSISTENT PAIN AND IS HAVING NAUSEA WITH INTAKE , BUT IT IS BETTER THAN IN THE PAST. SHE STATES THAT SHE IS READY TO GO HOME. Review of Systems General: Fatigue HEENT: No Head Aches Pulmonary: No Dyspnea, No Cough Cardiovascular: No: Chest Pain, Palpitations Gastrointestinal: Nausea, Abdominal Pain Genitourinary: No Dysuria Neurological: Weakness, No: Confusion Objective Exam Vital Signs Date Time Temp Pulse Resp B/P (MAP) Pulse Ox O2 Delivery O2 Flow Rate FiO2 05/23/17 08:00 98.2 86 18 114/76 (89) 97 Room Air 05/23/17 00:45 98.5 80 20 117/79 (92) 99 Room Air 05/22/17 19:20 112 131/82 (98) 05/22/17 17:02 98.1 05/22/17 15:39 98.1 76 16 135/85 (102) 98 Room Air 05/22/17 14:46 Room Air I & O 05/23/17 07:00 Intake Total 100 ml Output Total 1330 ml Balance -1230 ml Capillary Refill : Less Than 3 SecondsLess Than 3 Seconds General Appearance: No Apparent Distress, WD/WN HEENT: PERRL/EOMI Neck: Full Range of Motion, Supple Respiratory: Chest Non Tender, Lungs Clear, Normal Breath Sounds Cardiovascular: Regular Rate, Rhythm Gastrointestinal: tenderness (+ BOWEL SOUNDS - STILL DISTANT - BUT PRESENT) Neurologic/Psychiatric: Alert, Oriented x3, No Motor/Sensory Deficits, Normal Mood/Affect Skin: Warm/Dry Lymphatic: No Adenopathy Results Lab Microbiology 05/07/17 Blood Culture - Final, Complete No growth 05/07/17 Urine Culture - Final, Complete Staph, Coag Neg (Comb Machine Operator) Assessment/Plan Assessment/Plan Assess & Plan/Chief Complaint SMALL BOWEL OBSTRUCTION POST-OP PARTIAL SMALL BOWEL RESECTION NAUSEA ABDOMINAL PAIN MESENTERIC VEIN THROMBOSIS TACHYCARDIA HYPOMAGNESEMIA HYPOKALEMIA SMALL BOWEL OBSTRUCTION - DEFER TO DR. MARION -SMALL BOWEL FOLLOW THROUGH SHOWED JEJUNAL OBSTRUCTION - PT IS POST-OP PARTIAL SMALL BOWEL RESECTION WITH PRIMARY RE-ANASTOMOSIS. PT TO START INCREASED INTAKE AND PT TO MONITOR SYMPTOMS, NAUSEA CONTROL WITH REGLAN AND ZOFRAN. PLANNING DISCHARGE TO HOME TODAY. PT IS ABLE TO TAKE IN PO - WILL CONTINUE WITH SUPPORTIVE CARE AT HOME, NAUSEA CONTROL, AND PT TO CALL IF SHE IS NOT ABLE TO KEEP UP WITH HER NEEDED INTAKE. MESENTERIC VEIN THROMBOSIS - CONTINUE WITH LOVENOX. TACHYCARDIA - MONITOR SYMPTOMS -RESTARTED BETA-MILAGROS AT 12.5MG PO BID METOPROLOL TARTRATE HYPOMAGNESEMIA AND HYPOKALEMIA - RESOLVED - REPLACE POTASSIUM AND MAGNESIUM PRN Clinical Quality Measures DVT/VTE Risk/Contraindication: Risk Factor Score Per Nursin RFS Level Per Nursing on Admit: 2=Moderate JONATHAN SMITH MD May 23, 2017 08:40
[2017-05-23] MEDS: CIPROFLOXACIN IV 400MG/200ML 200 ML IV SCH (09:34)
--- NOTE | 2017-05-23 12:43 | Progress Note (SOAP) ---
Subjective Date Seen by Provider: May 23, 2017 Time Seen by Provider: 12:40 Subjective/Events-last exam doing well. tolerating diet. pain controlled with PO pain meds. having BM's. minimal nausea. Objective Exam Vital Signs Date Time Temp Pulse Resp B/P (MAP) Pulse Ox O2 Delivery O2 Flow Rate FiO2 05/23/17 08:00 98.2 86 18 114/76 (89) 97 Room Air 05/23/17 00:45 98.5 80 20 117/79 (92) 99 Room Air 05/22/17 19:20 112 131/82 (98) 05/22/17 17:02 98.1 05/22/17 15:39 98.1 76 16 135/85 (102) 98 Room Air 05/22/17 14:46 Room Air I & O 05/23/17 07:00 Intake Total 100 ml Output Total 1330 ml Balance -1230 ml Capillary Refill : Less Than 3 SecondsLess Than 3 Seconds General Appearance: No Apparent Distress HEENT: PERRL/EOMI Neck: Full Range of Motion Respiratory: Chest Non Tender, Lungs Clear, Normal Breath Sounds Cardiovascular: Regular Rate, Rhythm Gastrointestinal: normal bowel sounds, soft Extremity: Normal Capillary Refill Neurologic/Psychiatric: Alert, Oriented x3 Skin: Normal Color Lymphatic: No Adenopathy Results Lab Microbiology 05/07/17 Blood Culture - Final, Complete No growth 05/07/17 Urine Culture - Final, Complete Staph, Coag Neg (Art Critic) Assessment/Plan Assessment/Plan Assess & Plan/Chief 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 pain better controlled with PO ultram. increased pain most likely second laparoscopy in short duration. ambulate in halls WID. having BM's and tolerating dys3 diet. plan for home today with ultram script. continue home anti-nausea meds PRN. diet as tolerated. Clinical Quality Measures DVT/VTE Risk/Contraindication: Risk Factor Score Per Nursin RFS Level Per Nursing on Admit: 2=Moderate PABLITO MARION MD May 23, 2017 12:43 pm
[2017-05-23 16:24] VITALS: BP 110/70
--- NOTE | 2017-05-24 04:17 | DISCHARGE SUMMARY ---
DATE OF SERVICE: ATTENDING PRIMARY CARE PHYSICIAN: Sarah Snider M.D. ADMISSION DIAGNOSES: Persistent nausea and vomiting, dehydration, malnutrition, history of recent superior mesenteric vein thrombosis. 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 ADDITIONAL DIAGNOSES: Anxiety, history of panic attacks. PRINCIPAL PROCEDURE: Laparoscopic segmental small bowel resection and anastomosis. No additional procedures. No complications. DISPOSITION: Home in stable condition. The patient is a 26-year-old female known to us. We initially seen her for reflux type of symptoms and was found to have a reflux esophagitis, small hiatal hernia as well as gastritis. No other abnormalities were detected. She was admitted for severe abdominal pain and distention as well as nausea and vomiting on 04/03/2017 and found to have a superior mesenteric vein thrombosis and underwent medical therapy with anticoagulation. She is on Lovenox 100 mg b.i.d. and was relatively stable; however, she continued to have symptoms and wanted to be transferred to [facility], which we proceeded with and she was continued on conservative therapy with anticoagulation. She states that she improved over time and was discharged home and felt well for approximately 1 week; however, had reoccurrence of nausea and vomiting. She did undergo an ultrasound, which did show contracted and thickened gallbladder wall consistent with a chronic cholecystitis. 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 What was noted was retained food substance in the stomach even after being n.p.o. after 24 hours. She was discharged home; however, over the past 3 days had recurrent episodes of severe nausea and vomiting and was dehydrated and was admitted. She had also had experienced acute protein-calorie malnutrition secondary to not eating anything significant for the past 4 weeks. PAST MEDICAL HISTORY: Superior mesenteric vein thrombosis, persistent severe nausea, vomiting and anxiety, history of panic attacks. PAST SURGERIES: Labial biopsy in 2006, which was benign, laparoscopic cholecystectomy 05/05/2017. ALLERGIES: No known drug allergies. MEDICATIONS: Cetirizine 10 mg daily, cyclobenzaprine 10 mg t.i.d. p.r.n., enoxaparin 100 mg subcutaneous b.i.d., gabapentin 300 mg q.8 hours p.r.n., Reglan 10 mg q.i.d. p.r.n., Zofran 4 mg q. 4 hours p.r.n., Percocet 10 mg q. 4 hours p.r.n., Protonix 40 mg b.i.d., promethazine 12.5 mg q.3 hours p.r.n. SOCIAL HISTORY: Negative smoke. Negative alcohol. FAMILY HISTORY: Noncontributory. The patient was admitted and treated conservatively for a number of days. She was continued on Lovenox 100 mg b.i.d. We had felt that due to the edematous changes due to the superior mesenteric vein thrombosis in the proximal small bowel that there was a very slow transit through this area of small bowel causing the nausea and vomiting. She was stable and did not have any fever nor chills and did have adequate pain control. Her laboratory work was also stable. We continued on this conservative tract for approximately one week; however, she experienced failure of progression. An initial CT scan was performed, which did not have a delayed venous phase. This initial CT scan showed signs of a high-grade partial small-bowel obstruction. A second CT scan was performed with the delayed phase, which again did show the superior mesenteric vein thrombosis; however recannulization of the distal veins and branches. Again, this did show a high-grade small-bowel obstruction. On 05/16/2017, she underwent a diagnostic laparoscopy and found a jejunal stricture approximately 20 cm from the ligament of Treitz with surrounding chronic inflammatory tissue consisting of omentum and mesentery. This area was resected and examined and there were no masses. The final pathology was consistent with chronic fibrotic scar tissue and stricture and no neoplasm was identified. She did well with the surgery in the anesthesia and was sent back to the general surgical floor. 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 Most likely cause of the increased pain was the second recent laparoscopic surgery causing peritoneal irritation. Most likely due to the narcotic pain medication, she did develop a postoperative ileus. With time as well as the n.p.o. status as well as the prokinetics and ambulation, she did slowly improve. Throughout the time, she was continued on Lovenox therapy as well. Eventually, she did have bowel movements as well as flatus and was started on a clear liquid diet, which she tolerated well with no nausea, no vomiting. This was then advanced to a soft diet, which she tolerated and eventually a regular diet. The drain that was placed intraoperatively was only draining a small amount of serosanguineous fluid and was removed. She was discharged home on 05/23/2017. Homegoing instructions, low residue diet for the next 6 weeks. MEDICATIONS: Resume all previous medications as well as Ultram 50 to 100 mg q.4 hours p.r.n. No activity restrictions; however, no heavy lifting or exertion for the next 2 weeks. She is instructed to follow up in the office in 2 weeks. Job ID: [id number] DocumentID: [id number] Dictated Date: 05/23/2017 18:22:13 Cake Puller Date: 05/24/2017 04:16:56 Dictated By: PABLITO MARION MD MTDD
== END 2017-05-23 15:30 | disposition home or self-care (01) | DRG 388 ==
LOC: EDUNIT# 19:37 → ER 19:39 → OBSVTOIN 23:00 → UNDOADMOB 23:00 → 4TH 23:00 → INTOOBSV 23:00 → UNDODISIN 05-23 15:30
PROVIDERS: ADMIT Surgery; ATTEND Surgery
PROC: 0DBA4ZX Excision of Jejunum, Percutaneous Endoscopic Approach, Diagnostic (ICD-10-PCS; principal; 2017-05-16 13:46)
DX: K56.690 Other partial intestinal obstruction (principal); I81 Portal vein thrombosis; I77.1 Stricture of artery; E46 Unspecified protein-calorie malnutrition; K91.89 Other postprocedural complications and disorders of digestive system; K56.7 Ileus, unspecified; T40.2X5A Adverse effect of other opioids, initial encounter; E86.0 Dehydration; K21.9 Gastro-esophageal reflux disease without esophagitis; J30.2 Other seasonal allergic rhinitis; F41.0 Panic disorder [episodic paroxysmal anxiety]; K44.9 Diaphragmatic hernia without obstruction or gangrene; L29.9 Pruritus, unspecified; E87.6 Hypokalemia; E83.42 Hypomagnesemia; Z79.01 Long term (current) use of anticoagulants; Z98.890 Other specified postprocedural states; Z87.19 Personal history of other diseases of the digestive system
CPT/HCPCS: 36415; 71275; 74174; 74177; 74250; 76937; 80048; 80053; 81000; 82150; 83605; 83690; 83735; 84703; 85007; 85014; 85018; 85025; 85027; 85610; 85730; 87040; 87088; 93005; 93041; 94760; 96361; 96365; 96375

== ENCOUNTER 2017-06-20 14:27 | Outpatient (RCR) | payer OTHER ==
[2017-05-01 12:14] LABS: BASOPHILS % (AUTO) 0 % (0-10); EOSINOPHILS % (AUTO) 0 % (0-10); HEMATOCRIT 36 % (35-52); HEMOGLOBIN 11.6 G/DL (11.5-16.0); LYMPHOCYTES # (AUTO) 3.4 X 10^3 (1.0-4.0); LYMPHOCYTES % (AUTO) 50 % (12-44); MEAN CORPUSCULAR HEMOGLOBIN 29 PG (25-34); MEAN CORPUSCULAR HGB CONC 32 G/DL (32-36); MEAN CORPUSCULAR VOLUME 89 FL (80-99); MEAN PLATELET VOLUME 10.1 FL (7.4-10.4); MONOCYTES # (AUTO) 0.8 X 10^3 (0.0-1.0); MONOCYTES % (AUTO) 11 % (0-12); NEUTROPHILS # (AUTO) 2.6 X 10^3 (1.8-7.8); NEUTROPHILS % (AUTO) 39 % (42-75); PLATELET COUNT 543 10^3/uL (130-400); RED BLOOD COUNT 4.06 10^6/uL (4.35-5.85); RED CELL DISTRIBUTION WIDTH 13.1 % (10.0-14.5); WHITE BLOOD COUNT 6.8 10^3/uL (4.3-11.0)
[2017-05-01 12:44] LABS: ALANINE AMINOTRANSFERASE 35 U/L (0-55); ALBUMIN 3.9 GM/DL (3.2-4.5); ALKALINE PHOSPHATASE 97 U/L (40-136); BILIRUBIN,TOTAL 0.4 MG/DL (0.1-1.0); BUN/CREATININE RATIO 14; CALCIUM 9.9 MG/DL (8.5-10.1); CARBON DIOXIDE 26 MMOL/L (21-32); CHLORIDE 100 MMOL/L (98-107); CREATININE SERUM 1.04 MG/DL (0.60-1.30); GFR ESTIMATED > 60; GLUCOSE 98 MG/DL (70-105); MAGNESIUM 1.6 MG/DL (1.8-2.4); POTASSIUM 3.8 MMOL/L (3.6-5.0); SODIUM 139 MMOL/L (135-145); TOTAL PROTEIN 8.1 GM/DL (6.4-8.2)
[~2017-06-20 14:27] MED LIST changes: +ERYT-95 PO; +METO10TA3 PO; +PROM12.59 PO; +SUCR1TAB PO
[2017-06-20 14:52] LABS: BASOPHILS % (AUTO) 0 % (0-10); EOSINOPHILS # (AUTO) 0.1 10^3/uL (0.0-0.3); EOSINOPHILS % (AUTO) 1 % (0-10); HEMATOCRIT 33 % (35-52); HEMOGLOBIN 10.7 G/DL (11.5-16.0); LYMPHOCYTES # (AUTO) 3.3 X 10^3 (1.0-4.0); LYMPHOCYTES % (AUTO) 55 % (12-44); MEAN CORPUSCULAR HEMOGLOBIN 26 PG (25-34); MEAN CORPUSCULAR HGB CONC 32 G/DL (32-36); MEAN CORPUSCULAR VOLUME 81 FL (80-99); MONOCYTES # (AUTO) 0.7 X 10^3 (0.0-1.0); MONOCYTES % (AUTO) 11 % (0-12); NEUTROPHILS # (AUTO) 1.9 X 10^3 (1.8-7.8); NEUTROPHILS % (AUTO) 32 % (42-75); PLATELET COUNT 358 10^3/uL (130-400); RED BLOOD COUNT 4.09 10^6/uL (4.35-5.85); RED CELL DISTRIBUTION WIDTH 13.8 % (10.0-14.5)
[2017-06-20 15:11] LABS: ALANINE AMINOTRANSFERASE 37 U/L (0-55); ALBUMIN 4.1 GM/DL (3.2-4.5); ALKALINE PHOSPHATASE 89 U/L (40-136); BILIRUBIN,TOTAL 0.2 MG/DL (0.1-1.0); BUN/CREATININE RATIO 11; CALCIUM 9.6 MG/DL (8.5-10.1); CARBON DIOXIDE 22 MMOL/L (21-32); CHLORIDE 109 MMOL/L (98-107); GFR ESTIMATED > 60; GLUCOSE 111 MG/DL (70-105); SODIUM 144 MMOL/L (135-145); TOTAL PROTEIN 7.9 GM/DL (6.4-8.2)
== END 2017-07-30 | disposition home or self-care (01) ==
LOC: ONC 14:27
PROVIDERS: ATTEND Internal Medicine Hematology & Oncology
DX: I81 Portal vein thrombosis (principal)
CPT/HCPCS: 36415; 80053; 82728; 83540; 83735; 85025; 99213

== ENCOUNTER 2017-12-15 12:53 | Outpatient (RCR) | payer OTHER ==
[2017-10-10 09:53] LABS: BASOPHILS % (AUTO) 0 % (0-10); EOSINOPHILS # (AUTO) 0.1 10^3/uL (0.0-0.3); EOSINOPHILS % (AUTO) 2 % (0-10); HEMATOCRIT 40 % (35-52); HEMOGLOBIN 13.5 G/DL (11.5-16.0); LYMPHOCYTES # (AUTO) 2.6 X 10^3 (1.0-4.0); LYMPHOCYTES % (AUTO) 42 % (12-44); MEAN CORPUSCULAR HEMOGLOBIN 30 PG (25-34); MEAN CORPUSCULAR HGB CONC 34 G/DL (32-36); MEAN CORPUSCULAR VOLUME 87 FL (80-99); MEAN PLATELET VOLUME 10.2 FL (7.4-10.4); MONOCYTES # (AUTO) 0.7 X 10^3 (0.0-1.0); MONOCYTES % (AUTO) 11 % (0-12); NEUTROPHILS # (AUTO) 2.8 X 10^3 (1.8-7.8); NEUTROPHILS % (AUTO) 45 % (42-75); PLATELET COUNT 309 10^3/uL (130-400); RED BLOOD COUNT 4.56 10^6/uL (4.35-5.85); RED CELL DISTRIBUTION WIDTH 18.5 % (10.0-14.5); WHITE BLOOD COUNT 6.1 10^3/uL (4.3-11.0)
[2017-10-10 10:21] LABS: ALANINE AMINOTRANSFERASE 24 U/L (0-55); ALBUMIN 4.5 GM/DL (3.2-4.5); ALKALINE PHOSPHATASE 70 U/L (40-136); BILIRUBIN,TOTAL 0.2 MG/DL (0.1-1.0); BUN/CREATININE RATIO 22; CALCIUM 9.7 MG/DL (8.5-10.1); CARBON DIOXIDE 25 MMOL/L (21-32); CHLORIDE 112 MMOL/L (98-107); CREATININE SERUM 0.89 MG/DL (0.60-1.30); GFR ESTIMATED > 60; GLUCOSE 99 MG/DL (70-105); POTASSIUM 4.4 MMOL/L (3.6-5.0); SODIUM 142 MMOL/L (135-145); TOTAL PROTEIN 7.5 GM/DL (6.4-8.2)
[2017-11-28 15:23] LABS: BASOPHILS % (AUTO) 0 % (0-10); EOSINOPHILS # (AUTO) 0.1 10^3/uL (0.0-0.3); EOSINOPHILS % (AUTO) 1 % (0-10); HEMATOCRIT 39 % (35-52); LYMPHOCYTES # (AUTO) 3.4 X 10^3 (1.0-4.0); LYMPHOCYTES % (AUTO) 51 % (12-44); MEAN CORPUSCULAR HEMOGLOBIN 32 PG (25-34); MEAN CORPUSCULAR HGB CONC 36 G/DL (32-36); MEAN CORPUSCULAR VOLUME 91 FL (80-99); MEAN PLATELET VOLUME 10.6 FL (7.4-10.4); MONOCYTES # (AUTO) 0.8 X 10^3 (0.0-1.0); MONOCYTES % (AUTO) 12 % (0-12); NEUTROPHILS # (AUTO) 2.4 X 10^3 (1.8-7.8); NEUTROPHILS % (AUTO) 36 % (42-75); PLATELET COUNT 239 10^3/uL (130-400); RED BLOOD COUNT 4.35 10^6/uL (4.35-5.85); RED CELL DISTRIBUTION WIDTH 13.2 % (10.0-14.5); WHITE BLOOD COUNT 6.7 10^3/uL (4.3-11.0)
[2017-11-28 15:52] LABS: ALANINE AMINOTRANSFERASE 18 U/L (0-55); ALBUMIN 4.6 GM/DL (3.2-4.5); ALKALINE PHOSPHATASE 63 U/L (40-136); BILIRUBIN,TOTAL 0.4 MG/DL (0.1-1.0); BUN/CREATININE RATIO 22; CALCIUM 9.9 MG/DL (8.5-10.1); CARBON DIOXIDE 19 MMOL/L (21-32); CHLORIDE 109 MMOL/L (98-107); CREATININE SERUM 0.83 MG/DL (0.60-1.30); GFR ESTIMATED > 60; GLUCOSE 97 MG/DL (70-105); POTASSIUM 4.2 MMOL/L (3.6-5.0); SODIUM 139 MMOL/L (135-145); TOTAL PROTEIN 7.6 GM/DL (6.4-8.2)
== END 2018-01-08 | disposition home or self-care (01) ==
LOC: ONC 12:53
PROVIDERS: ATTEND Internal Medicine Hematology & Oncology
DX: I82.891 Chronic embolism and thrombosis of other specified veins (principal); D50.0 Iron deficiency anemia secondary to blood loss (chronic); Z79.01 Long term (current) use of anticoagulants
CPT/HCPCS: 36415; 80053; 82728; 85025; 85240; 85300; 85303; 85306; 85610; 85613; 85705; 85730; 86146; 86147; 99213

== ENCOUNTER → 2020-02-19 | Outpatient (CLI) | payer OTHER ==
[~2020-02-19] MED LIST changes: -BISA10SU6 RC; +BISA10SU8 RC; -CETI10TA20 PO; +CETI10TA49 PO; -PANT40TA3 PO; +PANT40TA52 PO; +PROM12.511 PO; -PROM12.59 PO; -TRAM50TA2 PO
== END ==
LOC: LABNPT 06:19
PROVIDERS: ATTEND Family Medicine
DX: J02.9 Acute pharyngitis, unspecified (principal)

== ENCOUNTER → 2020-04-18 | Outpatient (CLI) | payer OTHER ==
--- NOTE | 2020-04-20 08:18 | NUR ---
Notified patient of Positive COVID test.
== END ==
LOC: LAB 14:08
PROVIDERS: ATTEND Family Medicine
DX: R43.0 Anosmia (principal); R09.89 Other specified symptoms and signs involving the circulatory and respiratory systems; Z57.8 Occupational exposure to other risk factors

== ENCOUNTER → 2021-03-09 | Outpatient (CLI) | payer OTHER ==
[~2021-03-09] MED LIST changes: -METO10TA3 PO; +MTC10T PO; -PHEN37.53 PO; +PHEN37.58 PO
--- NOTE | 2021-03-09 12:47 | Diagnostic Imaging Report ---
Indication: Routine screening. No prior mammograms are available for comparison. This a baseline study. 2-D and 3-D bilateral screening mammography was performed with CAD. Both breasts are heterogeneously dense, limiting the sensitivity of mammography. There is an area of density in the upper central left breast on the MLO view. No definite correlate on the CC view seen. Additional views are recommended. The right breast is unremarkable. No malignant-appearing microcalcifications are seen. Axillae are unremarkable. IMPRESSION: BI-RADS 0 Left breast density. Additional views recommended for further evaluation. ACR BI-RADS Category 0: Incomplete. (Needs additional imaging evaluation). Result letter will be mailed to the patient. Note: At least 10% of breast cancer is not imaged by mammography. Dictated by: Dictated on workstation # [id number]
== END ==
LOC: RAD 10:30
PROVIDERS: ATTEND Nurse Practitioner Family
DX: Z12.31 Encounter for screening mammogram for malignant neoplasm of breast (principal)
CPT/HCPCS: 77063; 77067

== ENCOUNTER → 2021-05-05 | Outpatient (CLI) | payer OTHER ==
[~2021-05-05] MED LIST changes: +CYCL10TA25 PO; -CYCL10TA9 PO
--- NOTE | 2021-05-05 09:51 | Diagnostic Imaging Report ---
EXAMINATION: Ultrasound left breast limited. INDICATION: Abnormal mammogram. FINDINGS: The screening mammogram performed on 03/09/2021 noted an area of increased density in the superior half of the left breast on the MLO view. There was no corresponding abnormality seen on the CC view. The diagnostic mammogram performed earlier today failed to show any sign of malignancy. On this exam, there is no solid mass to suggest malignancy. There are a few small hypoechoic areas scattered throughout the fibroglandular tissue. I suspect that these are cysts. It may be that the density seen on the screening mammogram was related to superimposition of the fibroglandular tissue. Even so, I would recommend that a short-term (6 month) followup mammogram and ultrasound exam of the left breast be obtained for continued evaluation. IMPRESSION: There is no evidence for malignancy. Recommendations as above. ACR BI-RADS Category 3: Probably benign findings. Result letter will be mailed to the patient. Note: At least 10% of breast cancer is not imaged by mammography. Dictated by: Dictated on workstation # [id number]
--- NOTE | 2021-05-05 11:30 | Diagnostic Imaging Report ---
EXAMINATION: Unilateral diagnostic left mammogram with CAD. INDICATION: Abnormal screening mammogram. FINDINGS: The baseline screening mammogram performed on 03/09/2021 noted an area of density in the upper central left breast on the MLO view only. There was no correlate on the craniocaudad view. The compression view of this area in the MLO projection and the true lateral projection shows that the area in question is less conspicuous. This finding can still not be identified on the craniocaudad view. It may be that this area of increased density is related to fibroglandular tissue alone. Even so, I would recommend that ultrasound be performed for further study. IMPRESSION: There is no evidence for malignancy. Ultrasound would be recommended for further evaluation. ACR BI-RADS Category 0: Incomplete. (Needs additional imaging evaluation). Result letter will be mailed to the patient. Note: At least 10% of breast cancer is not imaged by mammography. Dictated by: Dictated on workstation # [id number]
== END ==
LOC: RAD 08:10
PROVIDERS: ATTEND Nurse Practitioner Family
DX: R92.2 Inconclusive mammogram (principal)
CPT/HCPCS: 76642; 77065; G0279